=== PATIENT | male | born 1980 | race Caucasian/White ===

== ENCOUNTER 2016-10-29 14:03 | Emergency (ER) | payer SELFPAY ==
[~2016-10-29] VITALS: Ht 188 cm; Wt 95.7 kg
[~2016-10-29 14:03] MED LIST: GABA800T PO; GLUCTES27 SQ; LEVEMIR SQ; NOVOLOGP2 SQ
[2016-10-29 14:12] VITALS: BP 152/98; PULSE 102; RESP 16; TEMP 98.7; O2SAT 98
[2016-10-29] MEDS ORDERED: LANTUS2P SQ (14:42)
[2016-10-29] MEDS ORDERED: VENTAER INH (15:16)
[2016-10-29] MEDS ORDERED: ZITHTAB PO (15:16)
[2016-10-29] MEDS ORDERED: LORA-361 PO (15:16)
[2016-10-29] MEDS ORDERED: PRED20 PO (15:16)
--- NOTE | 2016-10-29 15:18 | PD ---
HPI Chief Complaint: Cold / Flu Symptoms Time Seen by Provider: 15:16 Travel History International Travel<30 days: No Contact w/Intl Traveler<30days: No Traveled to known affect area: No History of Present Illness HPI 36-year-old male with a history of diabetes type 1 presents to the emergency department for evaluation of cough and sinus congestion. The patient states that for the past 3 months he has had intermittent nasal congestion and right ear feeling called and muffled with popping. States that he started using Flonase 3 days ago for these symptoms but has not had any relief yet. States that he has had a productive cough with yellow sputum for the past month. States that the cough is worsened at night and causes him to have mild shortness of breath at night. He denies any chest pain, lightheadedness, dizziness, nausea, vomiting, fever, chills, weakness. States that he is in drug court right now and cannot take most [id number] medications so he was unsure what he should take for his symptoms. He does admit to smoking cigarettes 1 pack per day for the past 15 years. No other complaints. PFSH Past Medical History ADHD: Yes Arthritis: No Asthma: No Blood Disorders: No Anxiety: Yes Depression: Yes Heart Rhythm Problems: No Cancer: No Cardiovascular Problems: No Chemotherapy: No Chest Pain: No Congestive Heart Failure: No COPD: No Diabetes: Yes (Type 1) Patient Takes Glucophage: No Diminished Hearing: No Endocrine: Yes Gastrointestinal Disorders: Yes Genitourinary: No Headaches: No Hepatitis: Yes (C) Hiatal Hernia: No Hypertension: No Immune Disorder: No Implanted Vascular Access Dvce: No Musculoskeletal: No Neurologic: Yes (NEUROPATHY LEGS/ FEET) Psychiatric: Yes (anxiety and depression) Reproductive: No Respiratory: No Immunizations Current: No Radiation Therapy: No Seizures: No Sleep Apnea: No Thyroid Disease: No Tetanus Vaccination: Unknown Influenza Vaccination: Yes Past Surgical History Abdominal Surgery: No AICD: No Cardiac Surgery: No Ear Surgery: No Endocrine Surgery: No Eye Surgery: No Genitourinary Surgery: No Gynecologic Surgery: No Joint Replacement: No Oral Surgery: No Pacemaker: No Thoracic Surgery: No Other Surgery: Yes Social History Alcohol Use: No Tobacco Use: Yes (1 PPD) Substance Use: No (HX IVDA/denies today) Allergies-Medications (Allergen,Severity, Reaction): Coded Allergies: Acetaminophen (Verified Adverse Reaction, Mild, NAUSEA, 10/29/16) 05/30/16 DENIES ALLERGY Uncoded Allergies: NARCOTICS (Adverse Reaction, Unknown, 10/29/16) hx of opoid abuse, IVDU, avoid.. Reported Meds & Prescriptions Reported Meds & Active Scripts Active Claritin (Loratadine) 10 Mg Tab 10 Mg PO DAILY 30 Days Ventolin Hfa 18 GM Inh (Albuterol Sulfate) 90 Mcg/Act Aer 2 Puff INH Q4H PRN Zithromax Z-Elliot (Azithromycin) 250 Mg Dspk 250 Mg PO DIRECTED 500 MG (2 tabs) day 1, then 1 tab days 2-5. Prednisone 20 Mg Tab 20 Mg PO BID 4 Days Novolog Inj (Insulin Aspart) 1,000 Unit/10 Ml Vial 0 SQ DIRECTED Sliding Scale as directed. Gabapentin 800 Mg Tab 800 Mg PO TID Reported Lantus Inj (Insulin Glargine) 1,000 Unit/10 Ml Vial 40 Units SQ HS Review of Systems Except as stated in HPI: all other systems reviewed are Neg Physical Exam Narrative GENERAL: Well-nourished and well-developed pleasant male patient in no acute distress who is nontoxic appearing. SKIN: Warm and dry. HEAD: Normocephalic and atraumatic. No tenderness or crepitus noted throughout the sinuses. EYES: No injection, drainage, or hyphema noted. PERRLA. EOMI. ENT: No nasal drainage noted. Oropharynx is clear. Right tympanic membrane with serous effusion, no erythema or dullness. Left tympanic membrane within normal limits. NECK: Supple and the trachea is midline. CARDIOVASCULAR: Regular rate and rhythm. RESPIRATORY: Coarse breath sounds. No accessory muscle use, wheezing, rhonchi, or crackles. GASTROINTESTINAL: Abdomen is soft, non-tender, and nondistended. MUSCULOSKELETAL: No obvious deformities, swelling, cyanosis, or ecchymosis is present throughout the upper and lower extremities. Patient has full range of motion without any signs of neurovascular compromise. NEUROLOGICAL: Awake, alert, and oriented. Normal speech and gait. Cranial nerves are grossly intact. Data Data Last Documented VS Vital Signs Date Time Temp Pulse Resp B/P Pulse Ox O2 Delivery O2 Flow Rate FiO2 10/29/16 14:40 16 98 Room Air 10/29/16 14:12 98.7 102 152/98 [facility] Medical Decision Making Medical Screen Exam Complete: Yes Emergency Medical Condition: Yes Differential Diagnosis Bronchitis versus pneumonia versus sinusitis versus otitis media Narrative Course 36-year-old male presents to the emergency department for evaluation of productive cough and right ear congestion. Patient is afebrile, vital signs are stable. On examination he does have serous effusion behind the right tympanic membrane and coarse lung breath sounds but clear. The patient appears well overall. Due to the duration of his cough and his smoking history will start the patient on a Z-Elliot and short course of prednisone. Discussed extensively with the patient to monitor his blood sugars carefully while taking steroids. Discussed when to return to the emergency department and to follow- up with his PCP. Patient verbalizes understanding and agreement with treatment plan. Diagnosis Primary Impression: Acute bronchitis Qualified Code: J20.9 - Acute bronchitis, unspecified organism Additional Impression: Serous otitis media Qualified Code: H65.91 - Right serous otitis media, unspecified chronicity Referrals: Primary Care Physician Patient Instructions: Acute Bronchitis (ED), General Instructions, Otitis Media (ED) Additional Instructions: Take medications as prescribed with food and a full glass of water. Check blood sugar more often because prednisone will cause your sugars to go up. Follow-up with your Primary Care Physician. Return to the ED for any acute worsening of symptoms. Med/Other Pt SpecificInfo: Prescription(s) given Scripts Loratadine (Claritin)10 Mg Tab10 Mg PO DAILY 30 Days Ref 0 Prov:Lisa Zazueta MD 10/29/16 Albuterol 18 GM Inh (Ventolin Hfa 18 GM Inh)90 Mcg/Act Aer2 Puff INH Q4H PRN ( SHORTNESS OF BREATH) #1 INHALER Ref 0 Prov:Lisa Zazueta MD 10/29/16 Azithromycin (Zithromax Z-Elliot)250 Mg Trit114 Mg PO DIRECTED #1 DSPK Ref 0 500 MG (2 tabs) day 1, then 1 tab days 2-5. Prov:Lisa Zazueta MD 10/29/16 Prednisone 20 Mg Tab20 Mg PO BID 4 Days Ref 0 Prov:Lisa Zazueta MD 10/29/16 Disposition: 01 DISCHARGE HOME Condition: Stable Shanika Squires Oct 29, 2016 15:18
[2016-11-09] MEDS ORDERED: GABA800T PO (17:04)
[2016-12-31] MEDS ORDERED: NOVORP2 SQ (15:00)
[2017-01-22] MEDS ORDERED: BLOOD GLUCOSE T1 TES (10:26)
[2017-01-22] MEDS ORDERED: FLUO20CA4 PO (10:26)
[2017-01-22] MEDS ORDERED: INSU-169 (10:28)
[2017-01-30] MEDS ORDERED: FLUO20CA4 PO (09:49)
== END 2016-10-29 15:25 | disposition home or self-care (01) ==
LOC: PHEFT 14:03
DX: J20.9 Acute bronchitis, unspecified (principal); H65.91 Unspecified nonsuppurative otitis media, right ear; R09.81 Nasal congestion; R06.02 Shortness of breath; E10.9 Type 1 diabetes mellitus without complications; F17.210 Nicotine dependence, cigarettes, uncomplicated
CPT/HCPCS: 99283

== ENCOUNTER 2016-12-17 13:32 | Inpatient (IN) | payer SELFPAY ==
[~2016-12-17] VITALS: Ht 180.3 cm; Wt 92.6 kg
[~2016-12-17 13:32] MED LIST changes: -GLUCTES27 SQ; +LANTUS2P SQ; -LEVEMIR SQ
[2016-12-17 13:34] VITALS: BP 147/81; PULSE 115; RESP 20; TEMP 98; O2SAT 96
[2016-12-17] MEDS ORDERED: VORT1TAB3 PO (14:33)
--- NOTE | 2016-12-17 15:07 | PD ---
HPI Chief Complaint: Psychiatric Symptoms Time Seen by Provider: 15:02 Travel History International Travel<30 days: No Contact w/Intl Traveler<30days: No Traveled to known affect area: No History of Present Illness HPI Patient is a 36-year-old male presented to the evaluation of depression and suicidal ideations. Patient states that his depression is getting worse despite having his medication increased last week. Patient also reports a history of anxiety, he is currently feeling very anxious. Patient has a history of drug abuse, he's been clean for 6 months. He was previously addicted to opiates but reports taking "everything". Patient reports that he attempted to cut his wrists when he was younger but felt that was more of a cry for help than an actual suicide attempt. Patient does not have an actual plan but reports thinking he could overdose or go in front of a train in order to kill himself. He denies any homicidal ideations. PFSH Past Medical History ADHD: Yes Arthritis: No Asthma: No Blood Disorders: No Anxiety: Yes Depression: Yes Heart Rhythm Problems: No Cancer: No Cardiovascular Problems: No Chemotherapy: No Chest Pain: No Congestive Heart Failure: No COPD: No Diabetes: Yes Diminished Hearing: No Endocrine: Yes Gastrointestinal Disorders: Yes Genitourinary: No Headaches: No Hepatitis: Yes (C) Hiatal Hernia: No Hypertension: No Immune Disorder: No Implanted Vascular Access Dvce: No Musculoskeletal: No Reproductive: No Respiratory: No Immunizations Current: No Radiation Therapy: No Seizures: No Sleep Apnea: No Thyroid Disease: No Past Surgical History Abdominal Surgery: No AICD: No Cardiac Surgery: No Ear Surgery: No Endocrine Surgery: No Eye Surgery: No Genitourinary Surgery: No Gynecologic Surgery: No Joint Replacement: No Oral Surgery: No Pacemaker: No Thoracic Surgery: No Other Surgery: Yes Social History Alcohol Use: No Tobacco Use: Yes Substance Use: No Allergies-Medications (Allergen,Severity, Reaction): Coded Allergies: Acetaminophen (Verified Adverse Reaction, Mild, NAUSEA, 12/17/16) 05/30/16 DENIES ALLERGY Uncoded Allergies: NARCOTICS (Adverse Reaction, Unknown, 10/29/16) hx of opoid abuse, IVDU, avoid.. Reported Meds & Prescriptions Reported Meds & Active Scripts Active Gabapentin 800 Mg Tab 800 Mg PO QID Novolog Inj (Insulin Aspart) 1,000 Unit/10 Ml Vial 0 SQ DIRECTED Sliding Scale as directed. Reported Trintellix (Vortioxetine) 20 Mg Tab 20 Mg PO DAILY Lantus Inj (Insulin Glargine) 1,000 Unit/10 Ml Vial 40 Units SQ HS Review of Systems Except as stated in HPI: all other systems reviewed are Neg Gastrointestinal: Positive: Abdominal Pain (cramping secondary to anxiety) Psychiatric: Positive: Anxiety, Depression, Suicidal Ideations Physical Exam Narrative GENERAL: Well-developed, well-nourished, alert male. Appears anxious , in no acute distress SKIN: Warm and dry. HEAD: Atraumatic. Normocephalic. EYES: Pupils equal and round. No scleral icterus. No injection or drainage. ENT: No nasal bleeding or discharge. Mucous membranes pink and moist. NECK: Trachea midline. No JVD. CARDIOVASCULAR: Tachycardic. No murmur appreciated. RESPIRATORY: No accessory muscle use. Clear to auscultation. Breath sounds equal bilaterally. GASTROINTESTINAL: Abdomen soft, non-tender, nondistended. Hepatic and splenic margins not palpable. MUSCULOSKELETAL: No obvious deformities. No clubbing. No cyanosis. No edema. NEUROLOGICAL: Awake and alert. No obvious cranial nerve deficits. Motor grossly within normal limits. Normal speech. PSYCHIATRIC: Depressed mood and affect; insight and judgment normal. Data Data Last Documented VS Vital Signs Date Time Temp Pulse Resp B/P Pulse Ox O2 Delivery O2 Flow Rate FiO2 12/17/16 13:34 98.0 115 20 147/81 96 Room Air Orders Complete Blood Count With Diff (12/17/16 14:54) Comprehensive Metabolic Panel (12/17/16 14:54) Psych Screen (12/17/16 14:54) Drug Screen, Random Urine (12/17/16 14:54) Electrocardiogram (12/17/16 ) Labs Laboratory Tests Test 12/17/16 15:20 White Blood Count 8.8 TH/MM3 Red Blood Count 5.47 MIL/MM3 Hemoglobin 16.4 GM/DL Hematocrit 47.1 % Mean Corpuscular Volume 86.1 FL Mean Corpuscular Hemoglobin 29.9 PG Mean Corpuscular Hemoglobin 34.7 % Concent Red Cell Distribution Width 13.0 % Platelet Count 247 TH/MM3 Mean Platelet Volume 8.4 FL Neutrophils (%) (Auto) 62.6 % Lymphocytes (%) (Auto) 25.3 % Monocytes (%) (Auto) 7.7 % Eosinophils (%) (Auto) 3.3 % Basophils (%) (Auto) 1.1 % Neutrophils # (Auto) 5.5 TH/MM3 Lymphocytes # (Auto) 2.2 TH/MM3 Monocytes # (Auto) 0.7 TH/MM3 Eosinophils # (Auto) 0.3 TH/MM3 Basophils # (Auto) 0.1 TH/MM3 CBC Comment DIFF FINAL Differential Comment Sodium Level 138 MEQ/L Potassium Level 4.5 MEQ/L Chloride Level 103 MEQ/L Carbon Dioxide Level 26.7 MEQ/L Anion Gap 8 MEQ/L Blood Urea Nitrogen 13 MG/DL Creatinine 1.01 MG/DL Estimat Glomerular Filtration 85 ML/MIN Rate Random Glucose 149 MG/DL Calcium Level 9.2 MG/DL Total Bilirubin 0.4 MG/DL Aspartate Amino Transf 11 U/L (AST/SGOT) Alanine Aminotransferase 29 U/L (ALT/SGPT) Alkaline Phosphatase 152 U/L Total Protein 8.0 GM/DL Albumin 4.2 GM/DL Urine Opiates Screen NEG Urine Barbiturates Screen NEG Urine Amphetamines Screen NEG Urine Benzodiazepines Screen NEG Urine Cocaine Screen NEG Urine Cannabinoids Screen NEG MDM Medical Decision Making Medical Screen Exam Complete: Yes Emergency Medical Condition: Yes Interpretation(s) Vital Signs Date Time Temp Pulse Resp B/P Pulse Ox O2 Delivery O2 Flow Rate FiO2 12/17/16 13:34 98.0 115 20 147/81 96 Room Air Differential Diagnosis Mood disorder versus suicidal ideations versus substance abuse versus electrolyte abnormality versus cardiac arrhythmia versus other Narrative Course Patient is a 36-year-old male presenting to emergency department for evaluation of suicidal ideations and worsening depression. Patient currently denies any homicidal ideations but reports that his thoughts of suicide gotten worse although he has no specific plan. Labs and EKG are ordered and pending. Workup initiated in the triage area, patient will be transferred to a medical bed when available. Johana Garcia Dec 17, 2016 15:07
[2016-12-17 15:43] LABS: AUTOMATED NEUTROPHIL # 5.5 TH/MM3 (1.8-7.7); BASOPHIL # 0.1 TH/MM3 (0-0.2); BASOPHIL % 1.1 % (0.0-2.0); EOSINOPHIL # 0.3 TH/MM3 (0-0.4); EOSINOPHIL % 3.3 % (0.0-4.0); HEMATOCRIT 47.1 % (39.0-51.0); HEMO FLAGS DIFF FINAL; LYMPH % 25.3 % (9.0-44.0); LYMPHOCYTE # 2.2 TH/MM3 (1.0-4.8); MEAN CELL VOLUME 86.1 FL (80.0-100.0); MEAN CORPUSCULAR HEMOGLOBIN 29.9 PG (27.0-34.0); MEAN CORPUSCULAR HGB CONC 34.7 % (32.0-36.0); MONO % 7.7 % (0.0-8.0); NEUT % 62.6 % (16.0-70.0); PLATELET COUNT 247 TH/MM3 (150-450); RED BLOOD COUNT 5.47 MIL/MM3 (4.50-5.90); WHITE BLOOD COUNT 8.8 TH/MM3 (4.0-11.0)
[2016-12-17 15:45] LABS: AMPHETAMINE, URINE NEG (NEG); BARBITURATES, URINE NEG (NEG); COCAINE, URINE NEG (NEG)
[2016-12-17 16:01] LABS: ALT (GPT) 29 U/L (12-78); ANION GAP 8 MEQ/L (5-15); AST (GOT) 11 U/L (15-37); BICARBONATE 26.7 MEQ/L (21.0-32.0); BLOOD UREA NITROGEN 13 MG/DL (7-18); CHLORIDE 103 MEQ/L (98-107); GLOMERULAR FILTRATION RATE 85 ML/MIN (>89); POTASSIUM 4.5 MEQ/L (3.5-5.1); SODIUM (NA) 138 MEQ/L (136-145)
[2016-12-17 16:02] LABS: ALKALINE PHOSPHATASE 152 U/L (45-117); TOTAL BILIRUBIN ADULT 0.4 MG/DL (0.2-1.0)
--- NOTE | 2016-12-17 16:12 | PD ---
Physical Exam Date Seen by Provider: Dec 17, 2016 Data Data Last Documented VS Vital Signs Date Time Temp Pulse Resp B/P Pulse Ox O2 Delivery O2 Flow Rate FiO2 12/18/16 15:03 97 18 113/61 95 Room Air 12/18/16 11:00 98.6 Orders Complete Blood Count With Diff (12/17/16 14:54) Comprehensive Metabolic Panel (12/17/16 14:54) Psych Screen (12/17/16 14:54) Drug Screen, Random Urine (12/17/16 14:54) Electrocardiogram (12/17/16 ) Insulin Human Regular Inj (Novolin R Inj (12/17/16 18:45) Hydroxyzine Pamoate (Vistaril) (12/17/16 19:15) Insulin Detemir Inj (Levemir Inj) (12/17/16 21:00) Diet Diabetic (12/18/16 Breakfast) Diet Diabetic (12/18/16 Lunch) Admit Order (Ed Use Only) (12/18/16 15:27) Admit To Inpatient Psych (12/18/16 ) Vital Signs (Adult) OTONIEL.Q12H.E (12/18/16 15:31) Activity Oob Ad Ana Maria (12/18/16 15:31) Basic Metabolic Panel (Bmp) (12/19/16 06:00) Lipid Profile (12/19/16 06:00) Hemoglobin (Hgb) A1c (12/19/16 06:00) Consult Hospitalist (12/18/16 ) Labs Laboratory Tests Test 12/17/16 15:20 White Blood Count 8.8 TH/MM3 Red Blood Count 5.47 MIL/MM3 Hemoglobin 16.4 GM/DL Hematocrit 47.1 % Mean Corpuscular Volume 86.1 FL Mean Corpuscular Hemoglobin 29.9 PG Mean Corpuscular Hemoglobin 34.7 % Concent Red Cell Distribution Width 13.0 % Platelet Count 247 TH/MM3 Mean Platelet Volume 8.4 FL Neutrophils (%) (Auto) 62.6 % Lymphocytes (%) (Auto) 25.3 % Monocytes (%) (Auto) 7.7 % Eosinophils (%) (Auto) 3.3 % Basophils (%) (Auto) 1.1 % Neutrophils # (Auto) 5.5 TH/MM3 Lymphocytes # (Auto) 2.2 TH/MM3 Monocytes # (Auto) 0.7 TH/MM3 Eosinophils # (Auto) 0.3 TH/MM3 Basophils # (Auto) 0.1 TH/MM3 CBC Comment DIFF FINAL Differential Comment Sodium Level 138 MEQ/L Potassium Level 4.5 MEQ/L Chloride Level 103 MEQ/L Carbon Dioxide Level 26.7 MEQ/L Anion Gap 8 MEQ/L Blood Urea Nitrogen 13 MG/DL Creatinine 1.01 MG/DL Estimat Glomerular Filtration 85 ML/MIN Rate Random Glucose 149 MG/DL Calcium Level 9.2 MG/DL Total Bilirubin 0.4 MG/DL Aspartate Amino Transf 11 U/L (AST/SGOT) Alanine Aminotransferase 29 U/L (ALT/SGPT) Alkaline Phosphatase 152 U/L Total Protein 8.0 GM/DL Albumin 4.2 GM/DL Urine Opiates Screen NEG Urine Barbiturates Screen NEG Urine Amphetamines Screen NEG Urine Benzodiazepines Screen NEG Urine Cocaine Screen NEG Urine Cannabinoids Screen NEG MDM Medical Record Reviewed: Yes Supervised Visit with MIRIAN: Yes Narrative Course I, Dr. Flores, have reviewed the advance practice practitioner's documentation and am in agreement, met with the patient face to face, made the diagnosis, and the medical decision making was done by me. *My assessment and Findings: Suicidal idealizations Patient is a 36-year-old male who presents to emergency room for evaluation of depression and suicidal ideations. Patient reports that he has been having suicidal thoughts of possibly overdosing or jumping in front of a train for the past week, reports that he is here for some help. Patient does contract for safety here. Psychiatric screening labs were ordered and are negative, patient cleared for psychiatric evaluation Diagnosis Primary Impression: Depression Qualified Code: F32.9 - Depression, unspecified depression type Additional Impression: Suicidal ideation Patient Instructions: General Instructions Additional Instruction: Please follow-up with your primary care doctor as soon as possible Return to emergency room if symptoms progress or worsen Return to the emergency room at any time for reevaluation of your symptoms Madisyn Flores DO Dec 17, 2016 16:12
[2016-12-17 18:42] VITALS: BP 139/86; PULSE 99; RESP 18; O2SAT 98
[2016-12-17] MEDS ORDERED: INSULIN HUMAN REGULAR 1,000 UNITS/10 ML VIAL SQ STA (18:45)
[2016-12-17] MEDS ORDERED: INSULIN DETEMIR 100 UNITS/ML VIAL SQ SCH (21:00)
[2016-12-17 22:02] VITALS: BP 137/84; PULSE 92; RESP 17; O2SAT 99
[2016-12-18 02:00] VITALS: BP 110/59; PULSE 86; RESP 19; O2SAT 98
[2016-12-18 06:11] VITALS: BP 106/56; PULSE 83; RESP 18; O2SAT 98
[2016-12-18 10:33] VITALS: BP 110/73; PULSE 97; RESP 18; O2SAT 98
[2016-12-18 11:00] VITALS: BP 101/66; PULSE 55; RESP 18; TEMP 98.6; O2SAT 97
[2016-12-18 15:03] VITALS: BP 113/61; PULSE 97; RESP 18; O2SAT 95
--- NOTE | 2016-12-18 15:36 | EKG ---
Date Performed: 12/17/2016 Time Performed: 15:18:14 PTAGE: 36 years EKG: Sinus rhythm POSSIBLE LEFT ATRIAL ENLARGEMENT BORDERLINE ECG PREVIOUS TRACING : 09/24/2016 18.18 No significant change from previous tracing noted. DOCTOR: Jameel Bass Interpretating Date/Time 12/18/2016 15:34:58
[2016-12-18] MEDS: GABAPENTIN 400 MG CAP PO SCH ×2 (17:23→21:18)
--- NOTE | 2016-12-18 17:39 | PD.CONS ---
HPI Service Family Medicine Consult Requested By Psychiatry Reason for Consult Diabetic management Primary Care Physician Chris Zhang MD History of Present Illness Patient is a 36-year-old male currently being treated in the inpatient psychiatry department for suicidal ideation secondary to severe depression. Patient's home insulin regimen is 35 units of Lantus daily at bedtime and sliding scale insulin with NovoLog. His fasting blood glucose is usually in the [id number] range. His PCP is Dr. Zhang. 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 Review of Systems Other Denies fever or chills Denies blurry vision, otorrhea, rhinorrhea Denies sore throat and cough No chest pain, palpitations, shortness of breath No abdominal pain Denies constipation/diarrhea/nausea/vomiting Denies muscle pain/weakness No rashes Past Family Social History Past Medical History Type 1 diabetes mellitus Diabetic neuropathy History of substance abuse Depression Past Surgical History Left hip I&D secondary to osteomyelitis Left eye drainage Reported Medications Reported Meds & Active Scripts Active Gabapentin 800 Mg Tab 800 Mg PO QID Novolog Inj (Insulin Aspart) 1,000 Unit/10 Ml Vial 0 SQ DIRECTED Sliding Scale as directed. Reported Trintellix (Vortioxetine) 20 Mg Tab 20 Mg PO DAILY Lantus Inj (Insulin Glargine) 1,000 Unit/10 Ml Vial 35 Units SQ HS Allergies: Coded Allergies: Acetaminophen (Verified Adverse Reaction, Mild, NAUSEA, 12/17/16) 05/30/16 DENIES ALLERGY Uncoded Allergies: NARCOTICS (Adverse Reaction, Unknown, 10/29/16) hx of opoid abuse, IVDU, avoid.. Family History Noncontributory Social History Lives in [facility]. Currently clean and sober. Physical Exam Vital Signs Vital Signs Date Time Temp Pulse Resp B/P Pulse Ox O2 Delivery O2 Flow Rate FiO2 12/18/16 15:03 97 18 113/61 95 Room Air 12/18/16 11:00 98.6 55 18 101/66 97 Room Air 12/18/16 10:33 97 18 110/73 98 Room Air 12/18/16 06:11 83 18 106/56 98 Room Air 12/18/16 02:00 86 19 110/59 98 Room Air 12/17/16 22:02 92 17 137/84 99 Room Air 12/17/16 18:42 99 18 139/86 98 Room Air Physical Exam Gen.: No acute distress Head: Normocephalic. Atraumatic. EENT: Pupils equal round and reactive to light. Nose without drainage. Airway intact. Throat without injection. Cardiovascular: Regular rate and rhythm. No murmurs, rubs or gallops. Respiratory: Lungs clear to auscultation bilaterally. No wheezes or rhonchi. Abdomen: Soft, nontender, nondistended. No peritoneal signs. Musculoskeletal: No gross deformities. No edema. Skin: No obvious rashes or erythema. Neuro: Sensory and motor grossly intact. Cranial nerves II through XII grossly intact. Psych: Appropriate mood and affect Result Diagram: 12/17/16 1520 12/17/16 1520 Assessment and Plan Assessment and Plan 36-year-old male being treated for severe depression with suicidal ideation with a history of type 1 diabetes mellitus. 1. Diabetes mellitus Patient on 35 units of Lantus daily at bedtime with sliding scale NovoLog at home Levemir 20 units twice a day NovoLog sliding scale insulin A1c pending Follow blood glucose Adjust insulin when necessary 2. Depression Managed by psychiatry FEN: No indication for fluids at this time Diabetic diet No indication for pharmacologic prophylaxis at this time Code Status Full code Madisyn Gonzalez MD R3 Dec 18, 2016 17:39
[2016-12-18] MEDS ORDERED: GLUCAGON 1 MG/ML VIAL OTHER PRN (18:00)
[2016-12-18] MEDS ORDERED: DEXTROSE 50% IN WATER 50 ML VIAL(D50) IV PUSH PRN (18:00)
[2016-12-18] MEDS: INSULIN DETEMIR 100 UNITS/ML VIAL SQ SCH (19:05)
[2016-12-18 19:08] VITALS: BP 123/79; PULSE 90; RESP 18; TEMP 98; O2SAT 98
[2016-12-18] MEDS: INSULIN ASPART SUPPLEMENTAL SCALE SQ SCH (19:08)
[2016-12-18] MEDS ORDERED: INSULIN DETEMIR 100 UNITS/ML VIAL SQ SCH (21:00)
[2016-12-19] MEDS: INSULIN ASPART SUPPLEMENTAL SCALE SQ SCH ×4 (06:16→21:17)
[2016-12-19 06:32] VITALS: BP 102/58; PULSE 93; RESP 18; TEMP 97.7; O2SAT 96
[2016-12-19] MEDS: GABAPENTIN 400 MG CAP PO SCH ×4 (08:15→21:17)
[2016-12-19] MEDS: INSULIN DETEMIR 100 UNITS/ML VIAL SQ SCH ×2 (08:15→21:17)
[2016-12-19 08:18] LABS: ANION GAP 7 MEQ/L (5-15); BICARBONATE 26.6 MEQ/L (21.0-32.0); BLOOD UREA NITROGEN 20 MG/DL (7-18); CHLORIDE 101 MEQ/L (98-107); GLOMERULAR FILTRATION RATE 72 ML/MIN (>89); HDL CHOLESTEROL 33.9 MG/DL (40.0-60.0); LDL CHOLESTEROL 79 MG/DL (0-99); POTASSIUM 4.5 MEQ/L (3.5-5.1); SODIUM (NA) 135 MEQ/L (136-145)
[2016-12-19] MEDS: NICOTINE 21 MG/24 HR PATCH TD SCH (09:00)
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
[2016-12-19] MEDS: FLUoxetine HCL 20 MG CAP PO SCH (11:22)
[2016-12-19] MEDS: INSULIN ASPART 1,000 UNITS/10 ML VIAL SQ SCH ×2 (12:30→16:15)
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
[2016-12-19 15:59] LABS: HEMOGLOBIN Ao 81.5 %; HEMOGLOBIN F 1.3 %; HEMOGLOBIN LA1C 3.2 %; HEMOGLOBIN P3 4.6 %
[2016-12-19] MEDS: hydrOXYzine PAMOATE 25 MG CAP PO PRN (17:18)
[2016-12-19 18:40] VITALS: BP 133/64; PULSE 100; RESP 18; TEMP 98.1; O2SAT 98
[2016-12-19] MEDS: REMOVE OLD NICODERM (NICOTINE) PATCH TD SCH (21:00)
[2016-12-20 05:52] VITALS: BP 120/75; PULSE 78; RESP 18; TEMP 97.6; O2SAT 96
[2016-12-20] MEDS: INSULIN ASPART SUPPLEMENTAL SCALE SQ SCH ×4 (06:26→21:10)
[2016-12-20] MEDS: INSULIN ASPART 1,000 UNITS/10 ML VIAL SQ SCH ×3 (08:00→16:20)
[2016-12-20] MEDS: GABAPENTIN 400 MG CAP PO SCH ×4 (09:02→20:19)
[2016-12-20] MEDS: FLUoxetine HCL 20 MG CAP PO SCH (09:03)
[2016-12-20] MEDS: INSULIN DETEMIR 100 UNITS/ML VIAL SQ SCH ×2 (09:03→21:00)
[2016-12-20] MEDS: NICOTINE 21 MG/24 HR PATCH TD SCH (09:05)
--- NOTE | 2016-12-20 09:05 | HHI.PYPN ---
Subjective Remarks Patient was seen and discussed with the wait staff. Patient claimed that he slept fairly well. No side effects were complained from the medication. He denies any suicidal ideation intentions or plan and has been feeling little better. He was encouraged to participate in all the therapeutic activity on the floor. No behavior or management problem reported. Is compliant in taking medication. Continue with the same treatment Review of Systems Except as stated in HPI: all other systems reviewed are Neg Psychiatric: COMPLAINS OF: Mood changes, Depression Objective Alert: Yes [place]: Person, Place, Situation Mood: Depressed Affect: Restricted Memory Intact: Recent (mildly impaired) Hallucinations: Other (patient denies any active auditory or visual hallucinations) Delusions: No Delusion Type: Other Suicidal: Ideation (patient denies any suicidal ideation intentions or plan and feels safe in the hospital) Homicidal: Ideation (denies) Insight/Judgement Fair Vitals/IOs Vital Signs Date Time Temp Pulse Resp B/P Pulse Ox O2 Delivery O2 Flow Rate FiO2 12/20/16 05:52 97.6 78 18 120/75 96 12/18/16 15:03 Room Air Assessment & Plan Problem List: (1) Depression ICD Code: F32.9 Assessment & Plan Estimated LOS: days Justification for Cont. Inpt. Monitoring other medication to lifted depression Request HC Surrog/Guard Advoc?: No Problem Qualifiers (1) Depression: Qualified Code: F32.9 - Depression, unspecified depression type Jaycob Hernandez MD Dec 20, 2016 09:05
--- NOTE | 2016-12-20 12:13 | HHI.FPPN ---
Subjective Remarks Patient seen and examined this morning. No acute events overnight. Patient states that his blood sugar remained elevated overnight, but decreased with each check overnight and this morning. He states he would like to increase his insulin to 6 units before each meal for better control. He has no other complaints and denies any fevers, chills, SOB, chest pain, NVD, or calf tenderness. (Bhavik Blanco MD R1) Objective Vitals Vital Signs Date Time Temp Pulse Resp B/P Pulse Ox O2 Delivery O2 Flow Rate FiO2 12/20/16 05:52 97.6 78 18 120/75 96 12/19/16 18:40 98.1 100 18 133/64 98 (Bhavik Blanco MD R1) Result Diagram: 12/17/16 1520 12/19/16 0657 Objective Remarks Gen.: 36 y/o M sitting in family room in [facility]. Cardiovascular: Regular rate and rhythm. No murmurs, rubs or gallops. Respiratory: Lungs clear to auscultation bilaterally. No wheezes or rhonchi. Abdomen: Soft, nontender, nondistended with +BS. Musculoskeletal: No gross deformities. No edema. Skin: No obvious rashes or erythema. Neuro: Sensory and motor grossly intact. AAOx3. Psych: Appropriate mood and affect (Bhavik Blanco MD R1) A/P Assessment and Plan 36-year-old male being treated for severe depression with suicidal ideation with a history of type 1 diabetes mellitus. 1. Diabetes mellitus Patient on 35 units of Lantus daily at bedtime with sliding scale NovoLog at home with carb counting Levemir 20 units twice a day Increase NovoLog to 6 units prior to each meal NovoLog sliding scale insulin A1c 7.1 Follow blood glucose. BG 85-265 over last 24hr. 2. Depression Managed by psychiatry FEN: No indication for fluids at this time Diabetic diet No indication for pharmacologic prophylaxis at this time Discharge Planning Pending Psych recommendations. WDW: Dr. Daniels (Bhavik Blanco MD R1) Attending Attestation Patient seen and examined. Case reviewed and discussed with the resident team. Agree with plan of care as discussed with me and documented in the resident note. (Elba Daniels MD) Bhavik Blanco MD R1 Dec 20, 2016 12:13 Elba Daniels MD Dec 24, 2016 14:00
[2016-12-20] MEDS: hydrOXYzine PAMOATE 25 MG CAP PO PRN ×2 (17:43→23:23)
[2016-12-20 20:07] VITALS: BP 127/80; PULSE 78; RESP 16; TEMP 97.3; O2SAT 96
[2016-12-20] MEDS: REMOVE OLD NICODERM (NICOTINE) PATCH TD SCH (20:52)
[2016-12-21 05:39] VITALS: BP 113/65; PULSE 84; RESP 18; TEMP 97.4; O2SAT 97
[2016-12-21] MEDS: INSULIN ASPART SUPPLEMENTAL SCALE SQ SCH ×4 (07:00→20:30)
[2016-12-21] MEDS: NICOTINE 21 MG/24 HR PATCH TD SCH (09:00)
[2016-12-21] MEDS: INSULIN DETEMIR 100 UNITS/ML VIAL SQ SCH ×2 (09:15→20:29)
[2016-12-21] MEDS: GABAPENTIN 400 MG CAP PO SCH ×4 (09:16→20:26)
[2016-12-21] MEDS: FLUoxetine HCL 20 MG CAP PO SCH (09:16)
--- NOTE | 2016-12-21 09:42 | HHI.FPPN ---
Subjective Remarks No acute events overnight. This morning patient reports hypoglycemia that was associated with blurry vision. Continues to have elevated blood glucose during the day. (Blessing Gamez MD R2) Objective Vitals Vital Signs Date Time Temp Pulse Resp B/P Pulse Ox O2 Delivery O2 Flow Rate FiO2 12/21/16 05:39 97.4 84 18 113/65 97 12/20/16 20:07 97.3 78 16 127/80 96 (Blessing Gamez MD R2) Result Diagram: 12/17/16 1520 12/19/16 0657 Objective Remarks GENERAL: Well-nourished, well-developed patient. No acute distress. SKIN: Warm and dry. No rash. EYES: No scleral icterus. No injection or drainage. EOMI. NECK: No visible JVD or lymphadenopathy. CARDIOVASCULAR: Warm and well perfused. RESPIRATORY: Normal respiratory effort. GASTROINTESTINAL: Abdomen nondistended. MUSCULOSKELETAL: Strength grossly WNL. Normal gait NEURO/PSYCH: Afocal. Awake. Flat affect. (Blessing Gamez MD R2) A/P Assessment and Plan 36-year-old male being treated for severe depression with suicidal ideation with a history of type 1 diabetes mellitus. 1. Diabetes mellitus Patient on 35 units of Lantus daily at bedtime with sliding scale NovoLog at home with carb counting Levemir to 20 units in the morning and 18 units at night due to hypoglycemia in the morning. NovoLog 4 units before breakfast, 6 units prior to lunch and dinner. NovoLog sliding scale insulin A1c 7.1 Follow blood glucose. BG 60-300 over last 24hr. -Snacks at bedside for hypoglycemic episodes 2. Depression Managed by psychiatry FEN: No indication for fluids at this time Diabetic diet No indication for pharmacologic prophylaxis at this time Discharge Planning Pending Psych recommendations. SDW: Dr. Daniels (Blessing Gamez MD R2) Attending Attestation Patient seen and examined. Case reviewed and discussed with the resident team. Agree with plan of care as discussed with me and documented in the resident note. (Elba Daniels MD) Problem List: (1) Hyperglycemia due to type 1 diabetes mellitus Status: Acute (2) Depression Status: Acute (Blessing Gamez MD R2) Problem Qualifiers (1) Depression: Qualified Code: F32.9 - Depression, unspecified depression type Blessing Gamez MD R2 Dec 21, 2016 09:42 Elba Daniels MD Dec 26, 2016 14:20
[2016-12-21] MEDS: INSULIN ASPART 1,000 UNITS/10 ML VIAL SQ SCH ×3 (11:00→17:17)
--- NOTE | 2016-12-21 11:09 | HHI.PYPN ---
Subjective Remarks Patient was seen and discussed with the cruise staff member. Patient reported that he has been feeling much better. Denied any active and passive suicidal ideation intentions or plan his depression seems to be lifting no side effects were complained from the medication. No behavior or management problem reported. His thoughts were organized he is compliant and participating in all the therapeutic activity. Continue the same treatment Review of Systems Except as stated in HPI: all other systems reviewed are Neg Psychiatric: COMPLAINS OF: Mood changes, Depression Objective Alert: Yes [place]: Person, Place, Date, Situation Mood: Depressed Affect: Restricted Memory Intact: Recent (mildly impaired) Hallucinations: Other (patient denies any active auditory or visual hallucinations) Delusions: No Delusion Type: Other Suicidal: Ideation (patient denies any suicidal ideation intentions or plan and feels safe in the hospital) Homicidal: Ideation (denies) Insight/Judgement Fair Vitals/IOs Vital Signs Date Time Temp Pulse Resp B/P Pulse Ox O2 Delivery O2 Flow Rate FiO2 12/21/16 05:39 97.4 84 18 113/65 97 12/18/16 15:03 Room Air Assessment & Plan Problem List: (1) Depression ICD Code: F32.9 Assessment & Plan Estimated LOS: days Justification for Cont. Inpt. Monitoring of the medication to stabilize his mood Request HC Surrog/Guard Advoc?: No Problem Qualifiers (1) Depression: Qualified Code: F32.9 - Depression, unspecified depression type Jaycob Hernandez MD Dec 21, 2016 11:09
[2016-12-21 18:32] VITALS: BP 130/77; PULSE 80; RESP 18; TEMP 98; O2SAT 97
[2016-12-21] MEDS: REMOVE OLD NICODERM (NICOTINE) PATCH TD SCH (20:37)
[2016-12-21] MEDS: hydrOXYzine PAMOATE 25 MG CAP PO PRN (20:37)
[2016-12-22] MEDS: INSULIN ASPART SUPPLEMENTAL SCALE SQ SCH ×4 (06:00→20:45)
[2016-12-22 06:12] VITALS: BP 118/79; PULSE 89; RESP 18; TEMP 97.6; O2SAT 95
[2016-12-22] MEDS: INSULIN ASPART 1,000 UNITS/10 ML VIAL SQ SCH ×2 (08:00→10:56)
--- NOTE | 2016-12-22 08:09 | HHI.FPPN ---
Subjective Remarks Patient seen and examined this morning. No acute events overnight with vital signs stable. He states that his blood sugars been well-controlled since adjusting as before male insulin yesterday. He seems very happy with his control and states that he will likely be discharged on Saturday. Otherwise he has no complaints and denies any fevers, chills, shortness breath, chest pain, NVD, or calf tenderness. (Bhavik Blanco MD R1) Objective Vitals Vital Signs Date Time Temp Pulse Resp B/P Pulse Ox O2 Delivery O2 Flow Rate FiO2 12/22/16 06:12 97.6 89 18 118/79 95 12/21/16 18:32 98.0 80 18 130/77 97 (Bhavik Blanco MD R1) Result Diagram: 12/19/16 0657 Objective Remarks GENERAL: Well-nourished, well-developed patient. No acute distress. SKIN: Warm and dry. No rash. Multiple tattoos. CARDIOVASCULAR: Warm and well perfused. RESPIRATORY: Normal respiratory effort. GASTROINTESTINAL: Abdomen nondistended with positive bowel sounds. MUSCULOSKELETAL: Strength grossly WNL. Normal gait NEURO/PSYCH: Afocal. Awake. Flat affect. (Bhavik Blanco MD R1) A/P Assessment and Plan 36-year-old male being treated for severe depression with suicidal ideation with a history of type 1 diabetes mellitus. 1. Diabetes mellitus Patient on 35 units of Lantus daily at bedtime with sliding scale NovoLog at home with carb counting Levemir to 20 units in the morning and 18 units at night due to hypoglycemia in the morning. NovoLog 4 units before breakfast, 6 units prior to lunch and dinner. NovoLog sliding scale insulin A1c 7.1 Follow blood glucose. BG 60-300 over last 24hr. Snacks at bedside for hypoglycemic episodes 2. Depression Managed by psychiatry FEN: No indication for fluids at this time Diabetic diet No indication for pharmacologic prophylaxis at this time Discharge Planning Pending Psych recommendations. Medical team available as needed, will sign off for now. Please re-consult as needed, thanks. DW: Dr. Daniels and Dr. Spear (Bhavik Blanco MD R1) Attending Attestation Patient seen and examined. Case reviewed and discussed with the resident team. Agree with plan of care as discussed with me and documented in the resident note. (Elba Daniels MD) Problem List: (1) Hyperglycemia due to type 1 diabetes mellitus Status: Acute (2) Depression Status: Acute (Bhavik Blanco MD R1) Problem Qualifiers (1) Depression: Qualified Code: F32.9 - Depression, unspecified depression type Bhavik Blanco MD R1 Dec 22, 2016 08:09 Elba Daniels MD Dec 26, 2016 14:20
[2016-12-22] MEDS: INSULIN DETEMIR 100 UNITS/ML VIAL SQ SCH ×2 (08:40→20:45)
[2016-12-22] MEDS: FLUoxetine HCL 20 MG CAP PO SCH (08:41)
[2016-12-22] MEDS: GABAPENTIN 400 MG CAP PO SCH ×4 (08:42→20:44)
[2016-12-22] MEDS: NICOTINE 21 MG/24 HR PATCH TD SCH (08:42)
--- NOTE | 2016-12-22 12:41 | HHI.PYPN ---
Subjective Remarks Patient was seen and case discussed with nursing. Patient is pleasant and cooperative with exam. His mood is anxious and his affect is anxious. His depression is improving. Denies suicidal ideations thought or plan. His compliant with his medications. Patient attributes his admission to a change of medicine. Says he has been clean of substances for the past 6 months Objective Alert: Yes [place]: Person, Place, Date, Situation Mood: Anxious, Depressed Affect: Restricted Memory Intact: Recent (mildly impaired) Hallucinations: Other (patient denies any active auditory or visual hallucinations) Delusions: No Delusion Type: Other Suicidal: Ideation (patient denies any suicidal ideation intentions or plan and feels safe in the hospital) Homicidal: Ideation (denies) Insight/Judgement Fair Vitals/IOs Vital Signs Date Time Temp Pulse Resp B/P Pulse Ox O2 Delivery O2 Flow Rate FiO2 12/22/16 06:12 97.6 89 18 118/79 95 12/18/16 15:03 Room Air Assessment & Plan Problem List: (1) Depression ICD Code: F32.9 Assessment & Plan Continue current treatment plan Justification for Cont. Inpt. Patient will decompensate in a less restrictive setting Request HC Surrog/Guard Advoc?: No Problem Qualifiers (1) Depression: Qualified Code: F32.9 - Depression, unspecified depression type Yaniv Gillespie DO Dec 22, 2016 12:41
[2016-12-22] MEDS: hydrOXYzine PAMOATE 25 MG CAP PO PRN ×2 (13:54→20:44)
[2016-12-22] MEDS ORDERED: INSULIN ASPART 1,000 UNITS/10 ML VIAL SQ ONE (15:00)
[2016-12-22 18:00] VITALS: BP 135/85; PULSE 91; RESP 18; TEMP 97.6; O2SAT 98
[2016-12-22] MEDS: REMOVE OLD NICODERM (NICOTINE) PATCH TD SCH (21:00)
[2016-12-23] MEDS: INSULIN ASPART SUPPLEMENTAL SCALE SQ SCH ×5 (06:19→20:37)
[2016-12-23 06:32] VITALS: BP 121/71; PULSE 78; RESP 18; TEMP 97.7; O2SAT 97
[2016-12-23] MEDS: INSULIN ASPART 1,000 UNITS/10 ML VIAL SQ SCH ×3 (08:00→16:00)
[2016-12-23] MEDS: NICOTINE 21 MG/24 HR PATCH TD SCH (09:00)
[2016-12-23] MEDS: FLUoxetine HCL 20 MG CAP PO SCH (09:27)
[2016-12-23] MEDS: GABAPENTIN 400 MG CAP PO SCH ×4 (09:27→20:34)
[2016-12-23] MEDS: INSULIN DETEMIR 100 UNITS/ML VIAL SQ SCH ×2 (09:56→20:35)
--- NOTE | 2016-12-23 14:50 | HHI.PYPN ---
Subjective Remarks Patient was seen and case discussed with nursing. His mood is improving. He's been thinking a lot about his situation and is making plans for friends to stay with them after discharge. Good insight about his drug use and was seen working on an NA workbook. Compliant with his medications. Affect is improving. Denies suicidal ideation intent or plan Objective Alert: Yes [place]: Person, Place, Date, Situation Mood: Depressed Affect: Blunted Memory Intact: Recent (mildly impaired) Hallucinations: Other (patient denies any active auditory or visual hallucinations) Delusions: No Delusion Type: Other Suicidal: Ideation (patient denies any suicidal ideation intentions or plan and feels safe in the hospital) Homicidal: Ideation (denies) Insight/Judgement Improving Vitals/IOs Vital Signs Date Time Temp Pulse Resp B/P Pulse Ox O2 Delivery O2 Flow Rate FiO2 12/23/16 06:32 97.7 78 18 121/71 97 Assessment & Plan Problem List: (1) Depression ICD Code: F32.9 Assessment & Plan Continue current treatment plan Justification for Cont. Inpt. Patient will decompensate in a less restrictive setting Request HC Surrog/Guard Advoc?: No Problem Qualifiers (1) Depression: Qualified Code: F32.9 - Depression, unspecified depression type Yaniv Gillespie DO Dec 23, 2016 14:50
[2016-12-23 18:11] VITALS: BP 142/85; PULSE 85; RESP 18; TEMP 97.3; O2SAT 95
[2016-12-23 20:26] VITALS: BP 142/85; PULSE 85; RESP 17; TEMP 97.3; O2SAT 95
[2016-12-23] MEDS: hydrOXYzine PAMOATE 25 MG CAP PO PRN (20:34)
[2016-12-23] MEDS: REMOVE OLD NICODERM (NICOTINE) PATCH TD SCH (20:59)
[2016-12-24 05:16] VITALS: BP 131/76; PULSE 70; RESP 18; TEMP 98.4; O2SAT 96
[2016-12-24] MEDS: INSULIN ASPART SUPPLEMENTAL SCALE SQ SCH ×2 (06:22→11:15)
[2016-12-24] MEDS: INSULIN ASPART 1,000 UNITS/10 ML VIAL SQ SCH ×2 (08:57→11:16)
[2016-12-24] MEDS: INSULIN DETEMIR 100 UNITS/ML VIAL SQ SCH (08:57)
[2016-12-24] MEDS: NICOTINE 21 MG/24 HR PATCH TD SCH (08:59)
[2016-12-24] MEDS: FLUoxetine HCL 20 MG CAP PO SCH (09:00)
[2016-12-24] MEDS: GABAPENTIN 400 MG CAP PO SCH ×2 (09:03→12:54)
[2016-12-24] MEDS ORDERED: FLUO20CA4 PO (14:30)
[2016-12-24] MEDS ORDERED: LEVEMIR SQ (14:30)
[2016-12-24] MEDS ORDERED: NOVOLOGP2 SQ (14:30)
[2016-12-24] MEDS ORDERED: HYDR1CAP30 PO (14:30)
--- NOTE | 2016-12-24 14:30 | HHI.DS ---
Psychiatry Discharge Summary Inpatient Psychiatric care?: Yes Advance Directive: No Reason Not Provided: none Mental Health AdvanceDirective: No Health Care Proxy: No Admission Admission Date Dec 18, 2016 at 15:35 Admission Diagnosis: (1) Depression ICD Code: F32.9 Brief History This is a 36-year-old white male who came voluntarily to the emergency room wanting some help for his increasing symptoms of depression. With suicidal ideation. He claimed that he is feeling tired of life. He has a history of heroin and polysubstance abuse but he has been clean for the past 6 months he is going through the drug court. But lately he has been finding that he has no energy no motivation he feels hopeless he sleeps too much he denied any auditory or visual hallucinations. He feels highly anxious and nervous. No behavior or management problem reported. He is very cooperative and willing to try on Prozac and maybe Vistaril. He claimed that the drug court will not allow him to take Wellbutrin Tobacco Use In Past 30 Days: 5 or More Cigarettes/Day Alcohol Use: Never Hospital Course Patient was admitted to a locked, inpatient psychiatric unit. Appropriate precautions were in place throughout patient's hospital stay. A general medical consultation was obtained. Patient was seen and examined daily on the unit by psychiatry and also visited by counselor. Medications were adjusted. Patient was placed back on his Prozac, to which he reports a good response in the past. Patient tolerated medication changes well without side effects. Patient had significant improvement in his presenting psychiatric symptomatology. There was no evidence of any suicidal or homicidal behavior on the inpatient psychiatric unit. Patient remained in good behavioral control and was medication compliant. He participated in unit activities to a fair degree. Charting indicates that he has been sleeping and eating fairly well. On the day of discharge: Patient seen and examined with nurse. Chart reviewed. Case discussed with nursing staff who reports patient has been a behavioral problem, nor has there been any evidence of any ongoing suicidality. On my examination today, the patient is requesting discharge from the inpatient psychiatric unit. He denies any suicidal ideation, intent or plan on direct questioning. He is future oriented with several near and long-term goals including finding a daughter, whom he previously gave up for adoption. He is also hopeful about resuming his chemical dependency treatment for his history of opiate dependence. He denies any homicidal ideation. Mood is improved, and I can elicit no depressive or hypomanic/manic symptoms at this time. He denies any audiovisual hallucinations, and I can elicit no delusional beliefs. He denies any side effects from medications. He has no physical complaints. Weighing the acute, chronic, and protective factors and based on the available evidence, I district court judge to reasonable degree of medical certainty that the patient is at low imminent risk of harm to self or others from a mental illness as defined under the [place] act, and his level of function is adequate for outpatient care. Given that the patient does not meet criteria for involuntary psychiatric hospitalization and given that he is requesting discharge from the inpatient psychiatric unit today, I will arrange for his discharge today with psychiatric follow-up as arranged by counselors. Patient is also to follow-up with primary care. I have supported the patient in his desire to maintain his abstinence from substances. I have reminded the patient of the warning signs for need to return to the psychiatric emergency room as part of a general safety plan. I have provided the patient with prescriptions for his Prozac and Vistaril along with his insulin, the dose of which has been changed. Patient reports that he has an adequate supply of all other medications at home. Results Blood Pressure 131 / 76 Vital Signs Date Time Temp Pulse Resp B/P Pulse Ox O2 Delivery O2 Flow Rate FiO2 12/24/16 05:16 98.4 70 18 131/76 96 Item Value Date Time White Blood Count 8.8 TH/MM3 12/17/16 1520 Hemoglobin 16.4 GM/DL 12/17/16 1520 Platelet Count 247 TH/MM3 12/17/16 1520 Sodium Level 135 MEQ/L L 12/19/16 0657 Potassium Level 4.5 MEQ/L 12/19/16 0657 Chloride Level 101 MEQ/L 12/19/16 0657 Carbon Dioxide Level 26.6 MEQ/L 12/19/16 0657 Blood Urea Nitrogen 20 MG/DL H 12/19/16 0657 Creatinine 1.16 MG/DL 12/19/16 0657 Estimat Glomerular Filtration Rate 72 ML/MIN L 12/19/16 0657 Aspartate Amino Transf (AST/SGOT) 11 U/L L 12/17/16 1520 Alanine Aminotransferase (ALT/SGPT) 29 U/L 12/17/16 1520 Alkaline Phosphatase 152 U/L H 12/17/16 1520 Summary of Procedures None done Imaging None done Pending results at discharge: No Medications # of Antipsychotic meds at D/C: 0 Approp Antipsych med options 1 - Minimum of three failed multiple trials of monotherapy. 2 - Documented plan to taper to monotherapy due to previous use of multiple meds OR cross-taper in progress at D/C. 3 - Documentation of augmentation of Clozapine. 4 - Justification other than those listed in allowable values 1-3, document here : Discharge Discharge Date: Dec 24, 2016 Discharge Diagnosis: (1) Depression Diagnosis: Principal (stabilized ) ICD Code: F32.9 (2) Opiate dependence Diagnosis: Principal ICD Code: F11.20 GAF on discharge is 60 Mental Status Exam at Disch Patient is casually dressed. He is well groomed. He is awake and alert and oriented 3. No abnormal motor movements noted. Steady gait and station. Speech is within normal limits for rate, tone and volume. Linkage and fund of knowledge seem average. Mood is reportedly improved versus admission and affect is full and reactive. Thought process linear. No loosening of associations. No evident delusions. Denies audiovisual hallucinations. Denies suicidal or homicidal ideation. Insight and judgment are fair. Pt Condition on Discharge: Stable Discharge Disposition: Discharge Home Discharge Instructions Diet Instructions: Diabetic Diet Activities you can perform: Weight Bearing as [place] Scheduled Appointment: as per counselor's notes New Medications: Fluoxetine (Fluoxetine) 20 Mg Cap 80 MG PO DAILY Mental Health Days 15 Ref 1 CAP Hydroxyzine Pamoate (Hydroxyzine Pamoate) 25 Mg Cap 25 MG PO Q6H PRN anxiety Days 15 Ref 1 CAP Insulin Aspart Inj (Novolog Inj) 1,000 Unit/10 Ml Vial 1 UNITS SQ DIRECTED 4 units SQ before breakfast. 6 units SQ before lunch. 6 units SQ before dinner. Blood Sugar Management Days 15 Ref 1 INJECTION Insulin Detemir Inj (Levemir Inj) 1,000 unit/ 10 ML Vial 1 UNITS SQ DIRECTED 20 units SQ qAM and 18 units SQ qHS. Blood Sugar Management Days 15 Ref 1 INJECTION Continued Medications: Gabapentin (Gabapentin) 800 Mg Tab 800 MG PO QID #120 Ref 4 TAB Discontinued Medications: Insulin Aspart Inj (Novolog Inj) 1,000 Unit/10 Ml Vial 0 SQ DIRECTED Sliding Scale as directed. Blood Sugar Management #10 Ref 0 ML Insulin Glargine Inj (Lantus Inj) 1,000 Unit/10 Ml Vial 35 UNITS SQ HS Blood Sugar Management Ref 0 VIAL Vortioxetine (Trintellix) 20 Mg Tab 20 MG PO DAILY Control Depression #30 Ref 0 TAB Discharge Time > 30 minutes Discharge/Advance Care Plan Health Problems: (1) Depression Goals to promote your health * To prevent worsening of your condition and complications * To maintain your health at the optimal level Directions to meet your goals Take your medications as prescribed Follow your dietary instruction Follow activity as directed Keep your appointments as scheduled Take your immunizations and boosters as scheduled If your symptoms worsen call your PCP, if no PCP go to Urgent Care Center or Emergency Room For 06/05 questions related to your inpatient stay or results of tests pending at discharge, please contact Dr. Finn Andres at Smoking is Dangerous to Your Health. Avoid second hand smoking Problem Qualifiers (1) Depression: Qualified Code: F32.9 - Depression, unspecified depression type (2) Opiate dependence: Qualified Code: F11.21 - Opioid dependence in remission Finn Andres MD Dec 24, 2016 14:30
[2016-12-31] MEDS ORDERED: NOVORP2 SQ (15:00)
[2017-01-22] MEDS ORDERED: BLOOD GLUCOSE T1 TES (10:26)
[2017-01-22] MEDS ORDERED: FLUO20CA4 PO (10:26)
[2017-01-22] MEDS ORDERED: INSU-169 (10:28)
[2017-01-30] MEDS ORDERED: FLUO20CA4 PO (09:49)
== END 2016-12-24 16:55 | disposition home or self-care (01) | DRG 881 ==
LOC: NEPC 13:32 → NEDA 12-18 15:35 → H260 12-18 15:50
PROVIDERS: ADMIT Psychiatry & Neurology Psychiatry; ATTEND Psychiatry & Neurology Psychiatry
DX: F32.9 Major depressive disorder, single episode, unspecified (principal); E10.40 Type 1 diabetes mellitus with diabetic neuropathy, unspecified; R45.851 Suicidal ideations; F11.20 Opioid dependence, uncomplicated; F90.9 Attention-deficit hyperactivity disorder, unspecified type; E10.65 Type 1 diabetes mellitus with hyperglycemia; E16.2 Hypoglycemia, unspecified; Z72.0 Tobacco use; Z79.4 Long term (current) use of insulin
CPT/HCPCS: 80048; 80053; 80061; 80307; 82948; 83036; 85025; 93005; 96372; J1815; Q0177

== ENCOUNTER 2017-01-07 18:33 | Emergency (ER) | payer SELFPAY ==
[~2017-01-07] VITALS: Ht 185.4 cm; Wt 92.9 kg
[~2017-01-07 18:33] MED LIST changes: +FLUO20CA4 PO; +HYDR1CAP30 PO; -LANTUS2P SQ; +LEVEMIR SQ; +NOVORP2 SQ
[2017-01-07 18:36] VITALS: BP 138/94; PULSE 93; RESP 18; TEMP 98.1; O2SAT 98
[2017-01-07 19:00] VITALS: BP 134/83; PULSE 86; RESP 18; O2SAT 96
[2017-01-07] MEDS ORDERED: ONDANSETRON HCL 4 MG/2 ML VIAL IV PUSH ONE (19:00)
[2017-01-07] MEDS ORDERED: INSULIN HUMAN NPH 1,000 UNITS/10 ML VIAL SQ ONE (19:00)
[2017-01-07] MEDS ORDERED: SODIUM CHLOR 0.9% 1000 ML INJ 1,000 ML IV ONE ×2 (19:00)
--- NOTE | 2017-01-07 19:14 | PD ---
HPI Chief Complaint: Diabetic Time Seen by Provider: 18:41 Travel History International Travel<30 days: No Contact w/Intl Traveler<30days: No Traveled to known affect area: No History of Present Illness HPI 36-year-old male is complaining of possible high blood sugar. He has a history of diabetes for 20 years. He has been trying to change himself from Humalog . Humulin R visit fever. Since he has been trying to change her sugars have been erratic. They have been low a few times but more commonly there are high. He has developed some nausea. He is also on Levemir. He has not been short of breath but is concerned that he may be developing some ketoacidosis. He has been feeling nauseated. He was recently hospitalized for depression and was released on Prozac and Vistaril. He has a history of polysubstance abuse, clean for 7 months PFSH Past Medical History ADHD: Yes Arthritis: No Asthma: No Blood Disorders: No Anxiety: Yes Depression: Yes Heart Rhythm Problems: No Cancer: No Cardiovascular Problems: Yes (per pt) Chemotherapy: No Chest Pain: No Congestive Heart Failure: No COPD: No Diabetes: Yes Patient Takes Glucophage: No Diminished Hearing: No Endocrine: Yes Gastrointestinal Disorders: Yes Genitourinary: No Headaches: Yes (per pt frequently ) Hepatitis: Yes (C) Hiatal Hernia: No Hypertension: No Immune Disorder: No Implanted Vascular Access Dvce: No Musculoskeletal: No Neurologic: Yes (NEUROPATHY LEGS/ FEET) Psychiatric: Yes ( Major depression chronic recurrent. History of Substance Abuse ) Reproductive: No Respiratory: No Immunizations Current: No Radiation Therapy: No Seizures: No (per pt) Sleep Apnea: No Thyroid Disease: No Tetanus Vaccination: > 5 Years Influenza Vaccination: Yes Past Surgical History Abdominal Surgery: No AICD: No Cardiac Surgery: No Ear Surgery: No Endocrine Surgery: Yes (diabetic) Eye Surgery: No Genitourinary Surgery: No Gynecologic Surgery: No Joint Replacement: No Oral Surgery: No Pacemaker: No Thoracic Surgery: No Other Surgery: Yes Social History Alcohol Use: No Tobacco Use: Yes (1 PACK/DAY) Substance Use: Yes (EARLY REMISSION (7 MONTHS)FROM HEROIN, AND POLYSUBSTANCE) Allergies-Medications (Allergen,Severity, Reaction): Coded Allergies: Acetaminophen (Verified Adverse Reaction, Mild, NAUSEA, 01/07/17) 05/30/16 DENIES ALLERGY Uncoded Allergies: NARCOTICS (Adverse Reaction, Unknown, 10/29/16) hx of opoid abuse, IVDU, avoid.. Reported Meds & Prescriptions Reported Meds & Active Scripts Active Novolin R Inj (Insulin Human Regular) 1,000 Unit/10 Ml Vial 0 SQ DIRECTED Sliding Scale As Directed. Levemir Inj (Insulin Detemir) 1,000 unit/ 10 ML Vial 1 Units SQ DIRECTED 15 Days 20 units SQ qAM and 18 units SQ qHS. Fluoxetine (Fluoxetine HCl) 20 Mg Cap 80 Mg PO DAILY 15 Days Gabapentin 800 Mg Tab 800 Mg PO QID Review of Systems General / Constitutional: No: Fever, Chills Eyes: No: Diploplia, Blurred Vision Cardiovascular: No: Chest Pain or Discomfort, Palpitations Respiratory: No: Cough, Shortness of Breath Gastrointestinal: Positive: Nausea Genitourinary: Positive: Frequency Musculoskeletal: No: Myalgias Skin: No Rash Physical Exam Narrative GENERAL: Well-developed male SKIN: Focused skin assessment warm/dry. HEAD: Atraumatic. Normocephalic. EYES: Pupils equal and round. No scleral icterus. No injection or drainage. ENT: No nasal bleeding or discharge. Mucous membranes pink and moist. NECK: Trachea midline. No JVD. CARDIOVASCULAR: Regular rate and rhythm. No murmur appreciated. RESPIRATORY: No accessory muscle use. Clear to auscultation. Breath sounds equal bilaterally. GASTROINTESTINAL: Abdomen soft, non-tender, nondistended. Hepatic and splenic margins not palpable. MUSCULOSKELETAL: No obvious deformities. No clubbing. No cyanosis. No edema. NEUROLOGICAL: Awake and alert. No obvious cranial nerve deficits. Motor grossly within normal limits. Normal speech. PSYCHIATRIC: Appropriate mood and affect; insight and judgment normal. Data Data Last Documented VS Vital Signs Date Time Temp Pulse Resp B/P Pulse Ox O2 Delivery O2 Flow Rate FiO2 01/07/17 20:40 18 96 Room Air 01/07/17 20:40 74 126/78 01/07/17 18:36 98.1 Orders Complete Blood Count With Diff (01/07/17 18:58) Comprehensive Metabolic Panel (01/07/17 18:58) Urinalysis - C+S If Indicated (01/07/17 18:58) Beta Hydroxybutyrate (Acetone) (01/07/17 18:58) Sodium Chlor 0.9% 1000 Ml Inj (Ns 1000 M (01/07/17 19:00) Sodium Chlor 0.9% 1000 Ml Inj (Ns 1000 M (01/07/17 19:00) Ondansetron Inj (Zofran Inj) (01/07/17 19:00) Insulin Human Nph Inj (Novolin N Inj) (01/07/17 19:00) Insulin Human Regular Inj (Novolin R Inj (01/07/17 19:30) Insulin Human Regular Inj (Novolin R Inj (01/07/17 20:30) Labs Laboratory Tests Test 01/07/17 19:27 White Blood Count 6.1 TH/MM3 Red Blood Count 5.27 MIL/MM3 Hemoglobin 15.3 GM/DL Hematocrit 46.5 % Mean Corpuscular Volume 88.2 FL Mean Corpuscular Hemoglobin 29.0 PG Mean Corpuscular Hemoglobin 32.8 % Concent Red Cell Distribution Width 13.0 % Platelet Count 252 TH/MM3 Mean Platelet Volume 8.6 FL Neutrophils (%) (Auto) 63.3 % Lymphocytes (%) (Auto) 24.0 % Monocytes (%) (Auto) 7.6 % Eosinophils (%) (Auto) 4.4 % Basophils (%) (Auto) 0.7 % Neutrophils # (Auto) 3.8 TH/MM3 Lymphocytes # (Auto) 1.5 TH/MM3 Monocytes # (Auto) 0.5 TH/MM3 Eosinophils # (Auto) 0.3 TH/MM3 Basophils # (Auto) 0.0 TH/MM3 CBC Comment DIFF FINAL Differential Comment Urine Color YELLOW Urine Turbidity CLEAR Urine pH 6.0 Urine Specific [place] 1.027 Urine Protein TRACE mg/dL Urine Glucose (UA) 500 mg/dL Urine Ketones NEG mg/dL Urine Occult Blood NEG Urine Nitrite NEG Urine Bilirubin NEG Urine Leukocyte Esterase NEG Urine RBC 4-9 /hpf Urine Squamous Epithelial 0-5 /hpf Cells Urine Mucus FEW /lpf Microscopic Urinalysis Comment CULT NOT INDICATED Sodium Level 134 MEQ/L Potassium Level 4.2 MEQ/L Chloride Level 98 MEQ/L Carbon Dioxide Level 27.0 MEQ/L Anion Gap 9 MEQ/L Blood Urea Nitrogen 19 MG/DL Creatinine 1.20 MG/DL Estimat Glomerular Filtration 69 ML/MIN Rate Random Glucose 466 MG/DL Calcium Level 8.4 MG/DL Total Bilirubin 0.7 MG/DL Aspartate Amino Transf 10 U/L (AST/SGOT) Alanine Aminotransferase 22 U/L (ALT/SGPT) Alkaline Phosphatase 126 U/L Total Protein 7.2 GM/DL Albumin 3.8 GM/DL B-Hydroxybutyrate 0.27 MMOL/L MDM Medical Decision Making Medical Screen Exam Complete: Yes Emergency Medical Condition: Yes Medical Record Reviewed: Yes Differential Diagnosis Differential includes DKA, hyperglycemia Narrative Course Beta hydroxybutyrate is normal. His sugar is elevated but there is no evidence of DKA. He has been given IV fluids and repeated doses of insulin. His sugars come down to about 300. He is stable for discharge Diagnosis Primary Impression: Hyperglycemia due to type 1 diabetes mellitus Disposition: DISCHARGE HOME Condition: Stable Noel Pearce MD Jan 07, 2017 19:13
[2017-01-07] MEDS ORDERED: INSULIN HUMAN REGULAR 1,000 UNITS/10 ML VIAL SQ ONE ×2 (19:30→20:30)
[2017-01-07 19:48] LABS: AUTOMATED NEUTROPHIL # 3.8 TH/MM3 (1.8-7.7); BASOPHIL % 0.7 % (0.0-2.0); BLOOD, URINE NEG (NEG); EOSINOPHIL # 0.3 TH/MM3 (0-0.4); EOSINOPHIL % 4.4 % (0.0-4.0); GLUCOSE,URINE 500 mg/dL (NEG); HEMATOCRIT 46.5 % (39.0-51.0); HEMO FLAGS DIFF FINAL; KETONE, URINE NEG (NEG); LYMPHOCYTE # 1.5 TH/MM3 (1.0-4.8); MEAN CELL VOLUME 88.2 FL (80.0-100.0); MEAN CORPUSCULAR HGB CONC 32.8 % (32.0-36.0); MONO % 7.6 % (0.0-8.0); NEUT % 63.3 % (16.0-70.0); NITRITE,URINE NEG (NEG); PLATELET COUNT 252 TH/MM3 (150-450); RED BLOOD COUNT 5.27 MIL/MM3 (4.50-5.90); WHITE BLOOD COUNT 6.1 TH/MM3 (4.0-11.0)
[2017-01-07 19:57] LABS: CHLORIDE 98 MEQ/L (98-107); POTASSIUM 4.2 MEQ/L (3.5-5.1); SODIUM (NA) 134 MEQ/L (136-145)
[2017-01-07 20:01] LABS: ANION GAP 9 MEQ/L (5-15); URINE COLOR YELLOW (YELLW/STRAW)
[2017-01-07 20:02] LABS: COMMENT (UR) CULT NOT INDICATED; CULTURE IF INDICATED CULT NOT INDICATED; MUCUS URINE FEW /lpf (OCC); SQUAMOUS EPITHELIAL CELL URINE 0-5 /hpf (0-5)
[2017-01-07 20:16] LABS: ALKALINE PHOSPHATASE 126 U/L (45-117); ALT (GPT) 22 U/L (12-78); AST (GOT) 10 U/L (15-37); BETA-HYDROXYBUTYRATE 0.27 MMOL/L (0.00-0.39); BLOOD UREA NITROGEN 19 MG/DL (7-18); GLOMERULAR FILTRATION RATE 69 ML/MIN (>89); TOTAL BILIRUBIN ADULT 0.7 MG/DL (0.2-1.0)
[2017-01-07 20:40] VITALS: BP 126/78; PULSE 74; RESP 18; O2SAT 96
[2017-01-22] MEDS ORDERED: BLOOD GLUCOSE T1 TES (10:26)
[2017-01-22] MEDS ORDERED: FLUO20CA4 PO (10:26)
[2017-01-22] MEDS ORDERED: INSU-169 (10:28)
[2017-01-30] MEDS ORDERED: FLUO20CA4 PO (09:49)
== END 2017-01-07 21:50 | disposition home or self-care (01) ==
LOC: PHED 18:33
DX: E10.65 Type 1 diabetes mellitus with hyperglycemia (principal); Z79.4 Long term (current) use of insulin
CPT/HCPCS: 80053; 81001; 82010; 85025; 96361; 96372; 96374; 99284; J1815; J2405; J7030

== ENCOUNTER 2017-01-09 13:38 | Emergency (ER) | payer SELFPAY ==
[~2017-01-09] VITALS: Ht 185.4 cm; Wt 92.0 kg
[~2017-01-09 13:38] MED LIST changes: -HYDR1CAP30 PO; -NOVOLOGP2 SQ
[2017-01-09 13:39] VITALS: BP 164/75; PULSE 110; RESP 20; TEMP 98.4; O2SAT 97
[2017-01-09] MEDS ORDERED: SODIUM CHLOR 0.9% 1000 ML INJ 1,000 ML IV ONE ×2 (16:15→16:30)
[2017-01-09] MEDS ORDERED: SODIUM CHLORIDE 0.9% FLUSH 10 ML FLUSH IVF PRN (16:15)
--- NOTE | 2017-01-09 16:19 | PD ---
HPI Chief Complaint: Diabetic Time Seen by Provider: 16:18 Travel History International Travel<30 days: No Contact w/Intl Traveler<30days: No Traveled to known affect area: No History of Present Illness HPI 36-year-old male with history of type 1 diabetes presents to the emergency department for evaluation of hyperglycemia. Patient states his blood glucose has been greater than 400 all day. He states he's been struggling lately keeping his blood glucose low. States that he was recently switched from Humulin to Novolog and he is concerned that it is not working well. He states he has not eaten all day and his blood glucose continues to rise. Reports nausea and vomiting. He did have some episodes of lightheadedness when his glucose was elevated. Denies any fever or chills. No cough or chest congestion. No other symptoms to report at this time. Patient's primary care provider is Dr. Zhang whom he states he has not informed of his blood glucose being elevated. PFSH Past Medical History ADHD: Yes Arthritis: No Asthma: No Blood Disorders: No Anxiety: Yes Depression: Yes Heart Rhythm Problems: No Cancer: No Cardiovascular Problems: Yes (per pt) Chemotherapy: No Chest Pain: No Congestive Heart Failure: No COPD: No Diabetes: Yes Diminished Hearing: No Endocrine: Yes Gastrointestinal Disorders: Yes Genitourinary: No Headaches: Yes (per pt frequently ) Hepatitis: Yes (C) Hiatal Hernia: No Hypertension: No Immune Disorder: No Implanted Vascular Access Dvce: No Musculoskeletal: No Neurologic: Yes (NEUROPATHY LEGS/ FEET) Psychiatric: Yes ( Major depression chronic recurrent. History of Substance Abuse ) Reproductive: No Respiratory: No Immunizations Current: No Radiation Therapy: No Seizures: No (per pt) Sleep Apnea: No Thyroid Disease: No Past Surgical History Abdominal Surgery: No AICD: No Cardiac Surgery: No Ear Surgery: No Endocrine Surgery: Yes (diabetic) Eye Surgery: No Genitourinary Surgery: No Gynecologic Surgery: No Joint Replacement: No Oral Surgery: No Pacemaker: No Thoracic Surgery: No Other Surgery: Yes Social History Alcohol Use: No Tobacco Use: Yes (1 PACK/DAY) Substance Use: Yes (EARLY REMISSION (7 MONTHS)FROM HEROIN, AND POLYSUBSTANCE) Allergies-Medications (Allergen,Severity, Reaction): Coded Allergies: Acetaminophen (Verified Adverse Reaction, Mild, NAUSEA, 01/09/17) 05/30/16 DENIES ALLERGY Uncoded Allergies: NARCOTICS (Adverse Reaction, Unknown, 10/29/16) hx of opoid abuse, IVDU, avoid.. Reported Meds & Prescriptions Reported Meds & Active Scripts Active Novolin R Inj (Insulin Human Regular) 1,000 Unit/10 Ml Vial 0 SQ DIRECTED Sliding Scale As Directed. Levemir Inj (Insulin Detemir) 1,000 unit/ 10 ML Vial 1 Units SQ DIRECTED 15 Days 20 units SQ qAM and 18 units SQ qHS. Fluoxetine (Fluoxetine HCl) 20 Mg Cap 80 Mg PO DAILY 15 Days Gabapentin 800 Mg Tab 800 Mg PO QID Review of Systems Except as stated in HPI: all other systems reviewed are Neg Physical Exam Narrative GENERAL: Well-nourished male patient, in no acute distress SKIN: Warm and dry. HEAD: Atraumatic. Normocephalic. EYES: Pupils equal and round. No scleral icterus. No injection or drainage. ENT: No nasal bleeding or discharge. Mucous membranes pink and moist. NECK: Trachea midline. No JVD. CARDIOVASCULAR: Tachycardic rate and rhythm. No murmur appreciated. RESPIRATORY: No accessory muscle use. Clear to auscultation. Breath sounds equal bilaterally. GASTROINTESTINAL: Abdomen soft, non-tender, nondistended. Hepatic and splenic margins not palpable. MUSCULOSKELETAL: No obvious deformities. No clubbing. No cyanosis. No edema. NEUROLOGICAL: Awake and alert. No obvious cranial nerve deficits. Motor grossly within normal limits. Normal speech. PSYCHIATRIC: Appropriate mood and affect; insight and judgment normal. Data Data Last Documented VS Vital Signs Date Time Temp Pulse Resp B/P Pulse Ox O2 Delivery O2 Flow Rate FiO2 01/09/17 20:08 90 16 138/86 97 01/09/17 16:57 Room Air 01/09/17 13:39 98.4 Orders Basic Metabolic Panel (Bmp) (01/09/17 16:14) Complete Blood Count With Diff (01/09/17 16:14) Ecg Monitoring (01/09/17 16:14) Bilateral Bp Monitoring (01/09/17 16:14) Iv Access Insert/Monitor (01/09/17 16:14) Oximetry (01/09/17 16:14) Oxygen Administration (01/09/17 16:14) Sodium Chloride 0.9% Flush (Ns Flush) (01/09/17 16:15) Beta Hydroxybutyrate (Acetone) (01/09/17 16:14) Sodium Chlor 0.9% 1000 Ml Inj (Ns 1000 M (01/09/17 16:15) Urinalysis - C+S If Indicated (01/09/17 16:14) Sodium Chlor 0.9% 1000 Ml Inj (Ns 1000 M (01/09/17 16:30) Insulin Human Regular Inj (Novolin R Inj (01/09/17 18:30) Blood Glucose (01/09/17 18:49) Labs Laboratory Tests Test 01/09/17 01/09/17 16:53 17:36 White Blood Count 7.8 TH/MM3 Red Blood Count 5.06 MIL/MM3 Hemoglobin 15.4 GM/DL Hematocrit 44.1 % Mean Corpuscular Volume 87.2 FL Mean Corpuscular Hemoglobin 30.5 PG Mean Corpuscular Hemoglobin 35.0 % Concent Red Cell Distribution Width 13.5 % Platelet Count 253 TH/MM3 Mean Platelet Volume 8.7 FL Neutrophils (%) (Auto) 63.0 % Lymphocytes (%) (Auto) 27.2 % Monocytes (%) (Auto) 7.3 % Eosinophils (%) (Auto) 2.1 % Basophils (%) (Auto) 0.4 % Neutrophils # (Auto) 4.9 TH/MM3 Lymphocytes # (Auto) 2.1 TH/MM3 Monocytes # (Auto) 0.6 TH/MM3 Eosinophils # (Auto) 0.2 TH/MM3 Basophils # (Auto) 0.0 TH/MM3 CBC Comment DIFF FINAL Differential Comment Urine Color LIGHT-YELLOW Urine Turbidity CLEAR Urine pH 6.5 Urine Specific [place] 1.026 Urine Protein NEG mg/dL Urine Glucose (UA) 1000 mg/dL Urine Ketones NEG mg/dL Urine Occult Blood NEG Urine Nitrite NEG Urine Bilirubin NEG Urine Urobilinogen LESS THAN 2.0 MG/DL Urine Leukocyte Esterase NEG Urine RBC 2 /hpf Urine WBC 1 /hpf Microscopic Urinalysis Comment CULT NOT INDICATED Sodium Level 135 MEQ/L Potassium Level 4.8 MEQ/L Chloride Level 102 MEQ/L Carbon Dioxide Level 26.0 MEQ/L Anion Gap 7 MEQ/L Blood Urea Nitrogen 16 MG/DL Creatinine 1.16 MG/DL Estimat Glomerular Filtration 72 ML/MIN Rate Random Glucose 426 MG/DL Calcium Level 8.4 MG/DL B-Hydroxybutyrate 0.20 MMOL/L MDM Medical Decision Making Medical Screen Exam Complete: Yes Emergency Medical Condition: Yes Medical Record Reviewed: Yes Differential Diagnosis Hyperglycemia versus DKA versus normal exam versus noncompliance Narrative Course 36-year-old male presents to the emergency department for evaluation of elevated blood glucose. CBC is without acute concern. BMP is with hyperglycemia 426. Hydroxybutyrate is 0.20. Urinalysis is with 1000 glucosuria. I discussed the patient with my attending physician Dr. Bailey. Patient is given IV fluids and 8 units regular insulin IV. Patient recheck blood glucose is 154. Patient be discharged home. He is instructed to contact Dr. Zhang and follow-up in regards to his blood glucose. He is to continue his medication as prescribed. He agrees to return immediately with any acute worsening symptoms. Diagnosis Primary Impression: Hyperglycemia due to type 1 diabetes mellitus Referrals: Primary Care Physician Patient Instructions: Diabetic Hyperglycemia (ED), General Instructions Departure Forms: Tests/Procedures, Work Release Enter return to work date: Jan 11, 2017 Additional Instructions: It is important that you follow-up with your primary care provider. Make sure you tell them that your blood glucose has been very labile and running high Return immediately to the emergency department with any acute worsening of symptoms Med/Other Pt SpecificInfo: No Change to Meds Disposition: 01 DISCHARGE HOME Condition: Stable Ros Martinez Jan 09, 2017 16:19
[2017-01-09 16:57] VITALS: BP 127/90; PULSE 87; RESP 18; O2SAT 96
[2017-01-09 17:13] LABS: BLOOD, URINE NEG (NEG); GLUCOSE,URINE 1000 mg/dL (NEG); KETONE, URINE NEG (NEG); NITRITE,URINE NEG (NEG); PH, URINE 6.5 (5.0-8.5); URINE COLOR LIGHT-YELLOW (YELLW/STRAW)
[2017-01-09 17:15] LABS: COMMENT (UR) CULT NOT INDICATED; CULTURE IF INDICATED CULT NOT INDICATED
[2017-01-09 17:25] LABS: AUTOMATED NEUTROPHIL # 4.9 TH/MM3 (1.8-7.7); BASOPHIL % 0.4 % (0.0-2.0); EOSINOPHIL # 0.2 TH/MM3 (0-0.4); EOSINOPHIL % 2.1 % (0.0-4.0); HEMATOCRIT 44.1 % (39.0-51.0); HEMO FLAGS DIFF FINAL; LYMPH % 27.2 % (9.0-44.0); LYMPHOCYTE # 2.1 TH/MM3 (1.0-4.8); MEAN CELL VOLUME 87.2 FL (80.0-100.0); MEAN CORPUSCULAR HEMOGLOBIN 30.5 PG (27.0-34.0); MONO % 7.3 % (0.0-8.0); PLATELET COUNT 253 TH/MM3 (150-450); RED BLOOD COUNT 5.06 MIL/MM3 (4.50-5.90); RED CELL DISTRIBUTION WIDTH 13.5 % (11.6-17.2); WHITE BLOOD COUNT 7.8 TH/MM3 (4.0-11.0)
[2017-01-09 18:11] LABS: BETA-HYDROXYBUTYRATE 0.2 MMOL/L (0.00-0.39); POTASSIUM 4.8 MEQ/L (3.5-5.1)
[2017-01-09] MEDS ORDERED: INSULIN HUMAN REGULAR 1,000 UNITS/10 ML VIAL IV PUSH ONE (18:30)
[2017-01-09 20:08] VITALS: BP 138/86
[2017-01-22] MEDS ORDERED: FLUO20CA4 PO (10:26)
[2017-01-22] MEDS ORDERED: BLOOD GLUCOSE T1 TES (10:26)
[2017-01-22] MEDS ORDERED: INSU-169 (10:28)
[2017-01-30] MEDS ORDERED: FLUO20CA4 PO (09:49)
== END 2017-01-09 20:19 | disposition home or self-care (01) ==
LOC: NEPE 13:38
DX: E10.65 Type 1 diabetes mellitus with hyperglycemia (principal); R11.2 Nausea with vomiting, unspecified; R42 Dizziness and giddiness; F17.200 Nicotine dependence, unspecified, uncomplicated; Z79.4 Long term (current) use of insulin; Z86.59 Personal history of other mental and behavioral disorders; Z86.79 Personal history of other diseases of the circulatory system; Z87.19 Personal history of other diseases of the digestive system; Z86.69 Personal history of other diseases of the nervous system and sense organs
CPT/HCPCS: 80048; 81001; 82010; 85025; 96361; 96374; 99284; J1815; J7030

== ENCOUNTER 2018-01-21 13:51 | Emergency (ER) | payer SELFPAY ==
[~2018-01-21 13:51] MED LIST changes: +ALBUAER3 INH; +AZIT250T3 PO; +BLOOD GLUCOSE T1 TES; +FLUO20CA12 PO; -FLUO20CA4 PO; +LISI10TA3 PO; +NOVOLOG; -NOVORP2 SQ; +PERM5CRE TOPICAL; +PRED20 PO; +REME15TA PO; +hydroxyzine PO
[2018-01-21 14:02] VITALS: BP 126/73; PULSE 93; RESP 14; TEMP 98.8; O2SAT 99
[2018-01-21] MEDS ORDERED: LISI10TA3 PO (14:27)
[2018-01-21] MEDS ORDERED: VENTAER INH (15:23)
[2018-01-21] MEDS ORDERED: BENZ100 PO (15:23)
[2018-01-21] MEDS ORDERED: AZIT500T2 PO (15:23)
[2018-01-21] MEDS ORDERED: PRED-503 PO (15:23)
--- NOTE | 2018-01-21 15:23 | PD ---
HPI Chief Complaint: Cold / Flu Symptoms Time Seen by Provider: 15:13 Travel History International Travel<30 days: No Contact w/Intl Traveler<30days: No Traveled to known affect area: No History of Present Illness HPI 37-year-old male presents to the emergency department with complaint of a cough for the past couple months and worse for the past few weeks. He says he was seen in [place] a little over a month ago and was treated with antibiotics, steroids, and an inhaler for bronchitis. He says he never filled the inhaler because it was too expensive. He says his symptoms never improved during that course of treatment. Denies chest pain, shortness of breath. Says he does have shortness of breath with coughing and taking a deep breath. Denies hemoptysis. Denies chest tightness, wheezing. Denies fevers. Denies nasal congestion, ear pain, sore throat. Smokes a vaporizer. Has not taken any other medications or try any other treatments to alleviate his symptoms. Cough is worse with overexertion. Better with relaxation. Primary CARE providers Dr. Zhang. Allergies to narcotics. History of type 1 diabetes mellitus and hypertension. Has no other medical complaints. No other modifying factors or associated signs and symptoms. PFSH Past Medical History ADHD: Yes Arthritis: No Asthma: No Blood Disorders: No Anxiety: Yes Depression: Yes Heart Rhythm Problems: No Cancer: No Cardiovascular Problems: Yes (htn on meds) Chemotherapy: No Chest Pain: No Congestive Heart Failure: No COPD: No Diabetes: Yes (type 1) Patient Takes Glucophage: No Diminished Hearing: No Endocrine: Yes Gastrointestinal Disorders: No Genitourinary: No Headaches: Yes (per pt frequently ) Hepatitis: Yes (C) Hiatal Hernia: No Hypertension: No Immune Disorder: No Implanted Vascular Access Dvce: No Musculoskeletal: No Neurologic: Yes (NEUROPATHY LEGS/ FEET) Psychiatric: Yes ( Major depression chronic recurrent. History of Substance Abuse ) Reproductive: No Respiratory: No Immunizations Current: No Radiation Therapy: No Sleep Apnea: No Thyroid Disease: No Tetanus Vaccination: > 5 Years Past Surgical History Abdominal Surgery: No AICD: No Cardiac Surgery: No Ear Surgery: No Endocrine Surgery: Yes (diabetic) Eye Surgery: Yes (RETNIAL SX) Genitourinary Surgery: No Gynecologic Surgery: No Joint Replacement: No Neurologic Surgery: No Oral Surgery: No Pacemaker: No Thoracic Surgery: No Other Surgery: Yes Social History Alcohol Use: No Tobacco Use: Yes (1/2 PACK/DAY) Substance Use: Yes (HX OF HEROIN, AND POLYSUBSTANCE) Allergies-Medications (Allergen,Severity, Reaction): Coded Allergies: acetaminophen (Unverified Adverse Reaction, Mild, NAUSEA, 01/21/18) 05/30/16 DENIES ALLERGY Uncoded Allergies: NARCOTICS (Adverse Reaction, Unknown, 12/15/17) hx of opoid abuse, IVDU, avoid... Reported Meds & Prescriptions Reported Meds & Active Scripts Active Tessalon Perles (Benzonatate) 100 Mg Cap 100 Mg PO TID PRN 3 Days Deltasone (Prednisone) 20 Mg Tab 40 Mg PO DAILY 4 Days start 01/22/2018 Ventolin Hfa 18 GM Inh (Albuterol Sulfate) 90 Mcg/Act Aer 2 Puff INH Q4-6H PRN Azithromycin 500 Mg Tab 500 Mg PO DAILY [NovoLog] Sliding scale as directed, see history from note June 07, 2017. Levemir Inj (Insulin Detemir) 1,000 unit/ 10 ML Vial 1 Units SQ DIRECTED 15 Days 18 units SQ qAM and 22 units SQ qHS. Gabapentin 800 Mg Tab 800 Mg PO QID One four times a day for neuropathy (painful lower extremities) Reported Lisinopril 10 Mg Tab 10 Mg PO DAILY Review of Systems Except as stated in HPI: all other systems reviewed are Neg Physical Exam Narrative GENERAL: Well-nourished, well-developed male patient, in no acute distress; afebrile, nontoxic-appearing SKIN: Warm and dry. HEAD: Atraumatic. Normocephalic. EYES: Pupils equal and round. No scleral icterus. No injection or drainage. ENT: Mucosa pink and moist. No erythema or exudates. No uvular edema. No uvular , palatal, or tonsillar deviation. Airway patent. Nares without nasal blood, purulent drainage or septal hematoma. EARS: Bilateral pinnae and external canals appear within normal limits. Bilateral tympanic membranes without erythema, dullness or perforation. NECK: Trachea midline. No lymphadenopathy. CARDIOVASCULAR: Regular rate and rhythm. No murmur appreciated. RESPIRATORY: No accessory muscle use. Lungs with Wheezing throughout to auscultation. Breath sounds equal bilaterally. No retractions or tachypnea. No Audible wheezing noted. GASTROINTESTINAL: Abdomen soft, non-tender, nondistended. Hepatic and splenic margins not palpable. Bowel sounds are active 4 quadrants. MUSCULOSKELETAL: No obvious deformities. No clubbing. No cyanosis. No edema. NEUROLOGICAL: Awake and alert. Oriented 3. No obvious cranial nerve deficits. Motor grossly within normal limits. Normal speech. Moves all extremities. 5/5 strength to all extremities. PSYCHIATRIC: Appropriate mood and affect; insight and judgment normal. Data Data Last Documented VS Vital Signs Date Time Temp Pulse Resp B/P (MAP) Pulse Ox O2 Delivery O2 Flow Rate FiO2 01/21/18 15:54 98 20 120/68 (85) 99 Room Air 01/21/18 14:02 98.8 Orders Orders Prednisone (Deltasone) (01/21/18 15:30) Albuterol-Ipratropium Neb (Duoneb Neb) (01/21/18 15:30) Ed Discharge Order (01/21/18 16:08) [facility] Medical Decision Making Medical Screen Exam Complete: Yes Emergency Medical Condition: Yes Medical Record Reviewed: Yes Differential Diagnosis Bronchitis, pneumonia, bronchiolitis, COPD Narrative Course 37-year-old male with cough with worsening for the past few weeks. He was seen at [facility] on December 15 and treated with bronchitis. Patient states he never filled the inhaler and his symptoms really never improved. Wheezing throughout on auscultation of the lungs. No retractions or tachypnea. No acute distress. Oxygen saturation is 98% on room air. DuoNeb and Deltasone ordered. 1608: Reports improvement in symptoms after breathing treatment. Lungs are clear and equal throughout. Says he can take a deep breath without feeling short of breath. Ventolin inhaler, Deltasone, azithromycin, Tessalon Perles prescribed for home. Instructed patient to follow up with primary care provider. Patient verbalizes understanding and agreement with treatment plan. Patient is medically cleared and stable for discharge. Discussed reasons to return to the emergency department. Patient agrees with treatment plan. The patients vital signs are stable and the patient is stable for outpatient follow- up and treatment. Patient discharged home, stable and in no acute distress. Diagnosis Primary Impression: Bronchitis Referrals: [facility] Primary Care Physician Patient Instructions: Acute Bronchitis (ED), General Instructions Departure Forms: Tests/Procedures, Work Release Enter return to work date: Jan 22, 2018 Additional Instructions: Use Albuterol inhaler as prescribed Take oral steroids as prescribed and complete full course Use Tessalon Perles as prescribed to decrease coughing spasms [id number] decongestants or antihistamines as directed and as needed for symptom management Your cough can last 4-6 weeks Drink plenty of fluids to prevent dehydration Use hot air humidifier to decrease cough exacerbation Turn off ceiling fans and sleep with head of bed elevated Avoid triggers such as second hand smoke, dust, known allergens Follow-up with your primary care provider Return to the emergency department immediately with worsening of symptoms Med/Other Pt SpecificInfo: Prescription(s) given Scripts Benzonatate (Tessalon Perles) 100 Mg Cap 100 MG PO TID Y for COUGH for 3 Days, CAP 0 Refills Prov: Shanika JimenezP 01/21/18 Prednisone (Deltasone) 20 Mg Tab 40 MG PO DAILY for 4 Days, #8 TAB 0 Refills start 01/22/2018 Prov: Shanika JimenezP 01/21/18 Albuterol 18 GM Inh (Ventolin Hfa 18 GM Inh) 90 Mcg/Act Aer 2 PUFF INH Q4-6H Y for SOB/WHEEZING, #1 INHALER 0 Refills Prov: Shanika JimenezP 01/21/18 Azithromycin (Azithromycin) 500 Mg Tab 500 MG PO DAILY for Infection, #5 TAB 0 Refills Prov: Shanika Jimenez 01/21/18 Disposition: 01 DISCHARGE HOME Condition: Stable Shanika Jimenez Jan 21, 2018 15:23
[2018-01-21] MEDS ORDERED: predniSONE 20 MG TAB PO ONE (15:30)
[2018-01-21] MEDS ORDERED: RESP: ALBUTEROL 2.5 MG/IPRATROPIUM 0.5 MG NEB (SCH) INH ONE (15:30)
[2018-01-21 15:54] VITALS: BP 120/68; PULSE 98; RESP 20; O2SAT 99
== END 2018-01-21 16:16 | disposition home or self-care (01) ==
LOC: NEPK 13:51
DX: J40 Bronchitis, not specified as acute or chronic (principal); E10.9 Type 1 diabetes mellitus without complications; I10 Essential (primary) hypertension; F90.9 Attention-deficit hyperactivity disorder, unspecified type; F41.9 Anxiety disorder, unspecified; F32.9 Major depressive disorder, single episode, unspecified; G62.9 Polyneuropathy, unspecified; F17.200 Nicotine dependence, unspecified, uncomplicated; Z86.19 Personal history of other infectious and parasitic diseases
CPT/HCPCS: 99283; J7512

== ENCOUNTER 2018-01-24 21:39 | Emergency (ER) | payer SELFPAY ==
[~2018-01-24 21:39] MED LIST changes: -ALBUAER3 INH; -AZIT250T3 PO; +AZIT500T2 PO; +BENZ100 PO; -BLOOD GLUCOSE T1 TES; -FLUO20CA12 PO; -PERM5CRE TOPICAL; +PRED-503 PO; -PRED20 PO; -REME15TA PO; +VENTAER INH; -hydroxyzine PO
[2018-01-24 21:58] VITALS: BP 128/69; PULSE 99; RESP 16; TEMP 97.8; O2SAT 99
[2018-01-24] MEDS ORDERED: PROZ40CA PO (22:50)
[2018-01-24] MEDS ORDERED: VIST50CA PO (22:50)
--- NOTE | 2018-01-24 23:24 | PD ---
HPI Chief Complaint: Psychiatric Symptoms Time Seen by Provider: 22:49 Travel History International Travel<30 days: No Contact w/Intl Traveler<30days: No Traveled to known affect area: No History of Present Illness HPI 37 year white male presents to emergency department on a voluntary basis for psychological evaluation. The patient states that he has a history of depression and IV drug abuse. He has been off his antidepressant now for several months. He's been using IV Dilaudid and heroin again. He states that he is contemplating suicide. He's attempted drug overdose in the past. He does not have any current plan. He was seen in the ER a few days ago for upper respiratory tract infection. He states that he has not filled his prescriptions. He is not complaining of any fever or chills now. No cough, congestion, nausea, vomiting, diarrhea, urinary symptoms. He is an insulin- dependent diabetic. He is treated for hypertension, and neuropathy as well. He has appointment see Dr. Zhang his primary care doctor in the next week or 2. He has not followed up with [facility] where he had been treated for his depression and substance abuse in the past. No homicidal ideation. [facility] Past Medical History Narrative Medical Depression, IV drug abuse, diabetes, hypertension, diabetic neuropathy ADHD: Yes Arthritis: No Asthma: No Blood Disorders: No Anxiety: Yes Depression: Yes Heart Rhythm Problems: No Cancer: No Cardiovascular Problems: Yes (htn on meds) Chemotherapy: No Chest Pain: No Congestive Heart Failure: No COPD: No Diabetes: Yes (type 1) Patient Takes Glucophage: No Diminished Hearing: No Endocrine: Yes Gastrointestinal Disorders: No Genitourinary: No Headaches: Yes (per pt frequently ) Hepatitis: Yes (C) Hiatal Hernia: No Hypertension: No Immune Disorder: No Implanted Vascular Access Dvce: No Musculoskeletal: No Neurologic: Yes (NEUROPATHY LEGS/ FEET) Psychiatric: Yes ( Major depression chronic recurrent. History of Substance Abuse ) Reproductive: No Respiratory: No Immunizations Current: No Radiation Therapy: No Sleep Apnea: No Thyroid Disease: No Tetanus Vaccination: < 5 Years Past Surgical History Abdominal Surgery: No AICD: No Cardiac Surgery: No Ear Surgery: No Endocrine Surgery: Yes (diabetic) Eye Surgery: Yes (RETNIAL SX) Genitourinary Surgery: No Gynecologic Surgery: No Joint Replacement: No Neurologic Surgery: No Oral Surgery: No Pacemaker: No Thoracic Surgery: No Other Surgery: Yes Social History Alcohol Use: No Tobacco Use: Yes (1/2 PACK/DAY) Substance Use: Yes (HX OF HEROIN, AND POLYSUBSTANCE) Allergies-Medications (Allergen,Severity, Reaction): Coded Allergies: acetaminophen (Unverified Adverse Reaction, Mild, NAUSEA, 01/21/18) 05/30/16 DENIES ALLERGY Uncoded Allergies: NARCOTICS (Adverse Reaction, Unknown, 12/15/17) hx of opoid abuse, IVDU, avoid... Reported Meds & Prescriptions Reported Meds & Active Scripts Active Ventolin Hfa 18 GM Inh (Albuterol Sulfate) 90 Mcg/Act Aer 2 Puff INH Q4-6H PRN [NovoLog] Sliding scale as directed, see history from note June 07, 2017. Levemir Inj (Insulin Detemir) 1,000 unit/ 10 ML Vial 1 Units SQ DIRECTED 15 Days 18 units SQ qAM and 22 units SQ qHS. Gabapentin 800 Mg Tab 800 Mg PO QID One four times a day for neuropathy (painful lower extremities) Reported Vistaril (Hydroxyzine Pamoate) 50 Mg Cap 50 Mg PO TID Prozac (Fluoxetine HCl) 40 Mg Cap 40 Mg PO DAILY Lisinopril 10 Mg Tab 10 Mg PO DAILY Review of Systems General / Constitutional: No: Fever Eyes: No: Visual changes HENT: No: Headaches Cardiovascular: No: Chest Pain or Discomfort Respiratory: No: Shortness of Breath Gastrointestinal: No: Abdominal Pain Genitourinary: No: Dysuria Musculoskeletal: No: Pain Skin: No Rash Neurologic: No: Weakness Psychiatric: Positive: Depression, Suicidal Ideations, Mood Disorder, Substance Abuse, No: Anxiety, Disorder of Thought, Homicidal Ideation Endocrine: No: Polydipsia Hematologic/Lymphatic: No: Easy Bruising Physical Exam Narrative GENERAL: Well-nourished, well-developed patient. SKIN: Warm and dry. Patient has track hatch on his right arm. HEAD: Normocephalic and atraumatic. EYES: No scleral icterus. No injection or drainage. ENT: No nasal drainage noted. Mucous membranes pink. Airway patent. NECK: Supple, trachea midline. Moves head freely without obvious discomfort. CARDIOVASCULAR: Regular rate and rhythm without murmurs, gallops, or rubs. RESPIRATORY: Breath sounds equal bilaterally. No accessory muscle use. GASTROINTESTINAL: Abdomen soft, non-tender, nondistended. EXTREMITIES: No cyanosis or edema. BACK: Nontender without obvious deformity. No CVA tenderness. NEURO: Patient is alert and oriented. no sensorimotor deficits. Nonfocal. Normal speech. PSYCH: No delusions. No auditory or visual hallucinations. Data Data Last Documented VS Vital Signs Date Time Temp Pulse Resp B/P (MAP) Pulse Ox O2 Delivery O2 Flow Rate FiO2 01/24/18 21:58 97.8 99 16 128/69 (88) 99 Orders Orders Complete Blood Count With Diff (01/24/18 23:02) Comprehensive Metabolic Panel (01/24/18 23:02) Thyroid Stimulating Hormone (01/24/18 23:02) Psych Screen (01/24/18:) Drug Screen, Random Urine (01/24/18:02) Alcohol (Ethanol) (01/24/18 23:02) Salicylates (Aspirin) (01/24/18 23:02) Tylenol (Acetaminophen) (01/24/18 23:02) Labs Laboratory Tests Test 01/24/18 23:21 01/24/18 23:25 White Blood Count 9.8 TH/MM3 Red Blood Count 4.87 MIL/MM3 Hemoglobin 14.6 GM/DL Hematocrit 41.7 % Mean Corpuscular Volume 85.6 FL Mean Corpuscular Hemoglobin 30.1 PG Mean Corpuscular Hemoglobin Concent 35.1 % Red Cell Distribution Width 13.6 % Platelet Count 300 TH/MM3 Mean Platelet Volume 8.8 FL Neutrophils (%) (Auto) 54.1 % Lymphocytes (%) (Auto) 33.9 % Monocytes (%) (Auto) 8.5 % Eosinophils (%) (Auto) 2.4 % Basophils (%) (Auto) 1.1 % Neutrophils # (Auto) 5.3 TH/MM3 Lymphocytes # (Auto) 3.3 TH/MM3 Monocytes # (Auto) 0.8 TH/MM3 Eosinophils # (Auto) 0.2 TH/MM3 Basophils # (Auto) 0.1 TH/MM3 CBC Comment DIFF FINAL Differential Comment Blood Urea Nitrogen 25 MG/DL Creatinine 1.25 MG/DL Random Glucose 117 MG/DL Total Protein 8.8 GM/DL Albumin 4.2 GM/DL Calcium Level 9.6 MG/DL Alkaline Phosphatase 151 U/L Aspartate Amino Transf (AST/SGOT) 14 U/L Alanine Aminotransferase (ALT/SGPT) 27 U/L Total Bilirubin 0.4 MG/DL Sodium Level 139 MEQ/L Potassium Level 3.6 MEQ/L Chloride Level 102 MEQ/L Carbon Dioxide Level 26.6 MEQ/L Anion Gap 10 MEQ/L Estimat Glomerular Filtration Rate 66 ML/MIN Thyroid Stimulating Hormone 3rd Gen 1.180 uIU/ML Salicylates Level LESS THAN 1.7 MG/DL Acetaminophen Level LESS THAN 2.0 MCG/ML Ethyl Alcohol Level LESS THAN 3 MG/DL Urine Opiates Screen NEG Urine Barbiturates Screen NEG Urine Amphetamines Screen NEG Urine Benzodiazepines Screen NEG Urine Cocaine Screen NEG Urine Cannabinoids Screen POS MDM Medical Decision Making Medical Screen Exam Complete: Yes Emergency Medical Condition: Yes Medical Record Reviewed: Yes Interpretation(s) Laboratory Tests Test 01/24/18 23:21 01/24/18 23:25 White Blood Count 9.8 TH/MM3 Red Blood Count 4.87 MIL/MM3 Hemoglobin 14.6 GM/DL Hematocrit 41.7 % Mean Corpuscular Volume 85.6 FL Mean Corpuscular Hemoglobin 30.1 PG Mean Corpuscular Hemoglobin Concent 35.1 % Red Cell Distribution Width 13.6 % Platelet Count 300 TH/MM3 Mean Platelet Volume 8.8 FL Neutrophils (%) (Auto) 54.1 % Lymphocytes (%) (Auto) 33.9 % Monocytes (%) (Auto) 8.5 % Eosinophils (%) (Auto) 2.4 % Basophils (%) (Auto) 1.1 % Neutrophils # (Auto) 5.3 TH/MM3 Lymphocytes # (Auto) 3.3 TH/MM3 Monocytes # (Auto) 0.8 TH/MM3 Eosinophils # (Auto) 0.2 TH/MM3 Basophils # (Auto) 0.1 TH/MM3 CBC Comment DIFF FINAL Differential Comment Blood Urea Nitrogen 25 MG/DL Creatinine 1.25 MG/DL Random Glucose 117 MG/DL Total Protein 8.8 GM/DL Albumin 4.2 GM/DL Calcium Level 9.6 MG/DL Alkaline Phosphatase 151 U/L Aspartate Amino Transf (AST/SGOT) 14 U/L Alanine Aminotransferase (ALT/SGPT) 27 U/L Total Bilirubin 0.4 MG/DL Sodium Level 139 MEQ/L Potassium Level 3.6 MEQ/L Chloride Level 102 MEQ/L Carbon Dioxide Level 26.6 MEQ/L Anion Gap 10 MEQ/L Estimat Glomerular Filtration Rate 66 ML/MIN Thyroid Stimulating Hormone 3rd Gen 1.180 uIU/ML Salicylates Level LESS THAN 1.7 MG/DL Acetaminophen Level LESS THAN 2.0 MCG/ML Ethyl Alcohol Level LESS THAN 3 MG/DL Urine Opiates Screen NEG Urine Barbiturates Screen NEG Urine Amphetamines Screen NEG Urine Benzodiazepines Screen NEG Urine Cocaine Screen NEG Urine Cannabinoids Screen POS Differential Diagnosis MDM: High Differential diagnoses: Schizophrenia, schizoaffective disorder, bipolar, anxiety, depression, adjustment reaction, mood disorder NOS, ODD, depressive disorder NOS, dementia, dementia with agitation, psychosis NOS, substance induced mood disorder, DMDD, Asperger syndrome, infection,electrolyte abnormality, malingering. Narrative Course Mental health screening discussed with the patient. Psychiatric screen ordered. Patient is been medically cleared. This is medical clearance for psychiatric admission, IV drug abuse, diabetes mellitus Diagnosis Primary Impression: Medical clearance for psychiatric admission Additional Impressions: IV drug abuse diabetes mellitus Condition: Stable Guillermo eLon Jan 24, 2018 23:24
[2018-01-24 23:43] LABS: HEMATOCRIT 41.7 % (39.0-51.0); HEMOGLOBIN 14.6 GM/DL (13.0-17.0); MEAN CELL VOLUME 85.6 FL (80.0-100.0); MEAN CORPUSCULAR HEMOGLOBIN 30.1 PG (27.0-34.0); MEAN CORPUSCULAR HGB CONC 35.1 % (32.0-36.0); MEAN PLATELET VOLUME 8.8 FL (7.0-11.0); NEUT % 54.1 % (16.0-70.0); PLATELET COUNT 300 TH/MM3 (150-450); RED BLOOD COUNT 4.87 MIL/MM3 (4.50-5.90); RED CELL DISTRIBUTION WIDTH 13.6 % (11.6-17.2); WHITE BLOOD COUNT 9.8 TH/MM3 (4.0-11.0)
[2018-01-24 23:44] LABS: AUTOMATED NEUTROPHIL # 5.3 TH/MM3 (1.8-7.7); BASOPHIL # 0.1 TH/MM3 (0-0.2); BASOPHIL % 1.1 % (0.0-2.0); EOSINOPHIL # 0.2 TH/MM3 (0-0.4); EOSINOPHIL % 2.4 % (0.0-4.0); LYMPH % 33.9 % (9.0-44.0); LYMPHOCYTE # 3.3 TH/MM3 (1.0-4.8); MONO % 8.5 % (0.0-8.0); MONOCYTE # 0.8 TH/MM3 (0-0.9)
[2018-01-24 23:53] LABS: ALBUMIN 4.2 GM/DL (3.4-5.0); AST (GOT) 14 U/L (15-37); BICARBONATE 26.6 MEQ/L (21.0-32.0); BLOOD UREA NITROGEN 25 MG/DL (7-18); CALCIUM 9.6 MG/DL (8.5-10.1); CHLORIDE 102 MEQ/L (98-107); CREATININE 1.25 MG/DL (0.60-1.30); GLOMERULAR FILTRATION RATE 66 ML/MIN (>89); GLUCOSE,RANDOM 117 MG/DL (74-106); SODIUM (NA) 139 MEQ/L (136-145)
[2018-01-24 23:54] LABS: ALT (GPT) 27 U/L (12-78)
[2018-01-25 00:04] LABS: ALKALINE PHOSPHATASE 151 U/L (45-117); TOTAL BILIRUBIN ADULT 0.4 MG/DL (0.2-1.0); TOTAL PROTEIN 8.8 GM/DL (6.4-8.2)
[2018-01-25 00:09] LABS: ACETAMINOPHEN LESS THAN 2.0 MCG/ML (10.0-30.0)
[2018-01-25 09:17] VITALS: BP 137/82; PULSE 93; RESP 16; TEMP 98.8; O2SAT 98
[2018-01-25] MEDS ORDERED: DEXTROSE 50% IN WATER 50 ML VIAL(D50) IV PUSH PRN (12:15)
[2018-01-25] MEDS ORDERED: GLUCAGON 1 MG/ML VIAL OTHER PRN (12:15)
--- NOTE | 2018-01-25 12:15 | PD ---
History of Present Illness Chief Complaint: Psychiatric Symptoms Time Seen by Provider: 11:58 Travel History International Travel<30 Days: No Contact w/Intl Traveler<30days: No Known affected area: No Legal Status Legal Status: Voluntary History of Present Illness: 37 year old male who presents on a voluntary basis for detox. He states that he is using IV Heroin after being clean for approximately one year. He is currently on probation following a charge of stolen property and completed drug court 3 months ago. He is a IDDM and is followed by Dr. Zhang. His blood sugar is 415 and he states that he manages his own diabetes with Novolog and Levemir. He is also under psychiatric care for depression and is currently taking , Prozac 60 mg daily, Gabapentin 800mg and Vistaril 50 mg tid. He feels that his current medication address his anxiety and depression. He has been under care for his depression since age 16. Patient is single, no children and currently employed at [employer]. He states that he has suicidal ideations with a vague plan. He is preoccupied with obtaining a bed at [facility] to detox. He is under the impression that he will obtain a bed expeditiously if he is seen in the Emergency Department. Patient does not meet admission criteria and we are not a designated detox facility. Patient currently has the means to address his elevated blood sugar and has ample psychiatric medications for his depression. He is alert and oriented and articulate. Will discharge and provide him with information to follow up with [facility] to request admission into detox. Dx: Mood Disorder, Substance Induced Heroin Use, Recurrent PFSH Past Medical History ADHD: Yes Arthritis: No Asthma: No Blood Disorders: No Anxiety: Yes Depression: Yes Heart Rhythm Problems: No Cancer: No Cardiovascular Problems: Yes (htn on meds) Chemotherapy: No Chest Pain: No Congestive Heart Failure: No COPD: No Diabetes: Yes (type 1) Patient Takes Glucophage: No Diminished Hearing: No Endocrine: Yes Gastrointestinal Disorders: No Genitourinary: No Headaches: Yes (per pt frequently ) Hepatitis: Yes (C) Hiatal Hernia: No Hypertension: No Immune Disorder: No Implanted Vascular Access Dvce: No Musculoskeletal: No Neurologic: Yes (NEUROPATHY LEGS/ FEET) Psychiatric: Yes ( Major depression chronic recurrent. History of Substance Abuse ) Reproductive: No Respiratory: No Immunizations Current: No Radiation Therapy: No Sleep Apnea: No Thyroid Disease: No Tetanus Vaccination: < 5 Years Past Surgical History Abdominal Surgery: No AICD: No Cardiac Surgery: No Ear Surgery: No Endocrine Surgery: Yes (diabetic) Eye Surgery: Yes (RETNIAL SX) Genitourinary Surgery: No Gynecologic Surgery: No Joint Replacement: No Neurologic Surgery: No Oral Surgery: No Pacemaker: No Thoracic Surgery: No Other Surgery: Yes Psychiatric History Psychiatric History Hx Psychiatric Treatment: Patient with hx of depression and anxiety. Past [facility] admission Dec 2016 for mood d/o NOS. History of Inpatient Treatment: Yes Social History Hx Alcohol Use: No Hx Tobacco Use: Yes (1/2 PACK/DAY) Hx Substance Use: Yes (HX OF HEROIN, AND POLYSUBSTANCE) Substance Use Type: Nicotine/Cigarettes, Benzos (Valium,Xanax), Heroin Other Substances Used: IVDU Hx of Substance Use Treatment: Yes Allergies-Medications (Allergen,Severity, Reaction): Coded Allergies: acetaminophen (Unverified Adverse Reaction, Mild, NAUSEA, 01/21/18) 05/30/16 DENIES ALLERGY Uncoded Allergies: NARCOTICS (Adverse Reaction, Unknown, 12/15/17) hx of opoid abuse, IVDU, avoid... Reported Meds & Prescriptions Reported Meds & Active Scripts Active Ventolin Hfa 18 GM Inh (Albuterol Sulfate) 90 Mcg/Act Aer 2 Puff INH Q4-6H PRN [NovoLog] Sliding scale as directed, see history from note June 07, 2017. Levemir Inj (Insulin Detemir) 1,000 unit/ 10 ML Vial 1 Units SQ DIRECTED 15 Days 18 units SQ qAM and 22 units SQ qHS. Gabapentin 800 Mg Tab 800 Mg PO QID One four times a day for neuropathy (painful lower extremities) Reported Vistaril (Hydroxyzine Pamoate) 50 Mg Cap 50 Mg PO TID Prozac (Fluoxetine HCl) 40 Mg Cap 40 Mg PO DAILY Lisinopril 10 Mg Tab 10 Mg PO DAILY Mental Status Examination Appearance: Appropriate Consciousness: Alert Orientation: x4 Motor Activity: Normal gait Speech: Unremarkable Language: Adequate Fund of Knowledge: Adequate Attention and Concentration: Adequate Memory: Unremarkable Mood: Appropriate Affect: Appropriate Thought Process & Associations: Intact Thought Content: Appropriate Hallucination Type: None Delusion Type: None Suicidal Ideation: No Suicidal Plan: No Suicidal Intention: No Homicidal Ideation: No Homicidal Plan: No Homicidal Intention: No Insight: Adequate Judgment: Adequate MDM Medical Decision Making Assessment/Plan Patient is voluntary and seeking treatment for detox from IV Heroin. He is familiar with [facility] and is under the impression that coming through the Emergency Room will expedite his admission to [facility]. He is currently under the care of Dr. Zhang for his diabetes and has been under treatment since age 16 for his depression. This patient does not meet admission criteria. He denies a suicidal plan and is preoccupied with obtaining a detox admission. Will discharge today and provide information regarding [facility] so that the patient may request detox management. Dx: Mood Disorder, Substance Induced Heroin Use Orders Orders Complete Blood Count With Diff (01/24/18 23:02) Comprehensive Metabolic Panel (01/24/18 23:02) Thyroid Stimulating Hormone (01/24/18 23:02) Psych Screen (01/24/18 23:02) Drug Screen, Random Urine (01/24/18 23:02) Alcohol (Ethanol) (01/24/18 23:02) Salicylates (Aspirin) (01/24/18 23:02) Tylenol (Acetaminophen) (01/24/18 23:02) Diet Regular Basic (01/25/18 Breakfast) Diet Regular Basic (01/25/18 Lunch) Results Vital Signs Date Time Temp Pulse Resp B/P (MAP) Pulse Ox O2 Delivery O2 Flow Rate FiO2 01/25/18 09:17 98.8 93 16 137/82 (100) 98 Room Air 01/24/18 21:58 97.8 99 16 128/69 (88) 99 Laboratory Tests Test 01/24/18 23:21 01/24/18 23:25 White Blood Count 9.8 Red Blood Count 4.87 Hemoglobin 14.6 Hematocrit 41.7 Mean Corpuscular Volume 85.6 Mean Corpuscular Hemoglobin 30.1 Mean Corpuscular Hemoglobin Concent 35.1 Red Cell Distribution Width 13.6 Platelet Count 300 Mean Platelet Volume 8.8 Neutrophils (%) (Auto) 54.1 Lymphocytes (%) (Auto) 33.9 Monocytes (%) (Auto) 8.5 Eosinophils (%) (Auto) 2.4 Basophils (%) (Auto) 1.1 Neutrophils # (Auto) 5.3 Lymphocytes # (Auto) 3.3 Monocytes # (Auto) 0.8 Eosinophils # (Auto) 0.2 Basophils # (Auto) 0.1 CBC Comment DIFF FINAL Differential Comment Blood Urea Nitrogen 25 Creatinine 1.25 Random Glucose 117 Total Protein 8.8 Albumin 4.2 Calcium Level 9.6 Alkaline Phosphatase 151 Aspartate Amino Transf (AST/SGOT) 14 Alanine Aminotransferase (ALT/SGPT) 27 Total Bilirubin 0.4 Sodium Level 139 Potassium Level 3.6 Chloride Level 102 Carbon Dioxide Level 26.6 Anion Gap 10 Estimat Glomerular Filtration Rate 66 Thyroid Stimulating Hormone 3rd Gen 1.180 Salicylates Level LESS THAN 1.7 Acetaminophen Level LESS THAN 2.0 Ethyl Alcohol Level LESS THAN 3 Urine Opiates Screen NEG Urine Barbiturates Screen NEG Urine Amphetamines Screen NEG Urine Benzodiazepines Screen NEG Urine Cocaine Screen NEG Urine Cannabinoids Screen POS Diagnosis Primary Impression: Medical clearance for psychiatric admission Additional Impressions: IV drug abuse diabetes mellitus Condition: Stable Problem Qualifiers Nancy Nelson Jan 25, 2018 12:15
--- NOTE | 2018-01-25 12:36 | PD ---
Data Data Last Documented VS Vital Signs Date Time Temp Pulse Resp B/P (MAP) Pulse Ox O2 Delivery O2 Flow Rate FiO2 01/25/18 09:17 98.8 93 16 137/82 (100) 98 Room Air Orders Orders Complete Blood Count With Diff (01/24/18 23:02) Comprehensive Metabolic Panel (01/24/18 23:02) Thyroid Stimulating Hormone (01/24/18 23:02) Psych Screen (01/24/18 23:02) Drug Screen, Random Urine (01/24/18 23:02) Alcohol (Ethanol) (01/24/18 23:02) Salicylates (Aspirin) (01/24/18 23:02) Tylenol (Acetaminophen) (01/24/18 23:02) Diet Regular Basic (01/25/18 Breakfast) Diet Regular Basic (01/25/18 Lunch) Blood Glucose Goal (Criteria) (01/25/18 12:09) Hypoglycemia 70 Mg/Dl Or < (01/25/18 12:09) Notify Dr: Other (01/25/18 12:09) Dextrose 50% In Jack (Vial) Inj (D50w (Vi (01/25/18 12:15) Glucagon Inj (Glucagon Inj) (01/25/18 12:15) Insulin Aspart Supplemtl Scale (Novolog (01/25/18 17:00) Ed Discharge Order (01/25/18 12:35) Labs Laboratory Tests Test 01/24/18 23:21 01/24/18 23:25 White Blood Count 9.8 TH/MM3 Red Blood Count 4.87 MIL/MM3 Hemoglobin 14.6 GM/DL Hematocrit 41.7 % Mean Corpuscular Volume 85.6 FL Mean Corpuscular Hemoglobin 30.1 PG Mean Corpuscular Hemoglobin Concent 35.1 % Red Cell Distribution Width 13.6 % Platelet Count 300 TH/MM3 Mean Platelet Volume 8.8 FL Neutrophils (%) (Auto) 54.1 % Lymphocytes (%) (Auto) 33.9 % Monocytes (%) (Auto) 8.5 % Eosinophils (%) (Auto) 2.4 % Basophils (%) (Auto) 1.1 % Neutrophils # (Auto) 5.3 TH/MM3 Lymphocytes # (Auto) 3.3 TH/MM3 Monocytes # (Auto) 0.8 TH/MM3 Eosinophils # (Auto) 0.2 TH/MM3 Basophils # (Auto) 0.1 TH/MM3 CBC Comment DIFF FINAL Differential Comment Blood Urea Nitrogen 25 MG/DL Creatinine 1.25 MG/DL Random Glucose 117 MG/DL Total Protein 8.8 GM/DL Albumin 4.2 GM/DL Calcium Level 9.6 MG/DL Alkaline Phosphatase 151 U/L Aspartate Amino Transf (AST/SGOT) 14 U/L Alanine Aminotransferase (ALT/SGPT) 27 U/L Total Bilirubin 0.4 MG/DL Sodium Level 139 MEQ/L Potassium Level 3.6 MEQ/L Chloride Level 102 MEQ/L Carbon Dioxide Level 26.6 MEQ/L Anion Gap 10 MEQ/L Estimat Glomerular Filtration Rate 66 ML/MIN Thyroid Stimulating Hormone 3rd Gen 1.180 uIU/ML Salicylates Level LESS THAN 1.7 MG/DL Acetaminophen Level LESS THAN 2.0 MCG/ML Ethyl Alcohol Level LESS THAN 3 MG/DL Urine Opiates Screen NEG Urine Barbiturates Screen NEG Urine Amphetamines Screen NEG Urine Benzodiazepines Screen NEG Urine Cocaine Screen NEG Urine Cannabinoids Screen POS MDM Medical Record Reviewed: Yes Supervised Visit with MIRIAN: No Narrative Course Please see previous providers notes. This patient has been cleared by psychiatry. His most recent blood sugar level was noted to be in the 400s and therefore insulin sliding scale was ordered for him during his ED stay. He appears well, no evidence of DKA. He has no medical issues that would warrant further hospitalization. Diagnosis Primary Impression: Medical clearance for psychiatric admission Additional Impressions: IV drug abuse diabetes mellitus Med/Other Pt SpecificInfo: No Change to Meds Disposition: 01 DISCHARGE HOME Condition: Stable Isaiah Graham Jan 25, 2018 12:36
[2018-01-25] MEDS ORDERED: INSULIN ASPART SUPPLEMENTAL SCALE SQ SCH (17:00)
== END 2018-01-25 13:32 | disposition home or self-care (01) ==
LOC: NEPD 21:39 → NEPJ 01-25 13:32
DX: F19.94 Other psychoactive substance use, unspecified with psychoactive substance-induced mood disorder (principal); F11.10 Opioid abuse, uncomplicated; R45.851 Suicidal ideations; E11.65 Type 2 diabetes mellitus with hyperglycemia; B19.20 Unspecified viral hepatitis C without hepatic coma; E11.40 Type 2 diabetes mellitus with diabetic neuropathy, unspecified; I10 Essential (primary) hypertension; Z79.4 Long term (current) use of insulin; Z87.891 Personal history of nicotine dependence; Z79.899 Other long term (current) drug therapy
CPT/HCPCS: 80053; 80307; 84443; 85025; 99283

== ENCOUNTER 2018-08-19 18:58 | Inpatient (IN) ==
--- NOTE | 2018-08-19 20:50 | ED ---
HPI General Chief Complaint: Extremity Injury, Lower Stated Complaint: Left ankle injury Time Seen by Provider: 08/19/18 20:45 Source: patient Mode of arrival: ambulatory Limitations: no limitations History of Present Illness HPI Narrative: 37-year-old male complains of left foot left ankle pain. Patient has history of diabetes. Patient states that he had a hypoglycemic episode last night and fell and injured his left foot and left ankle. Patient denies any headache. Patient denies any visual change. Patient denies any neck pain. Patient denies any chest pain or shortness of breath. Patient denies abdominal pain. Patient states that the pain is sharp pain localized to left foot and left ankle. Patient denies any pain radiation. Patient states that the pain is worse with weightbearing. MD complaint: Reports ankle injury and foot injury Onset (ago): hour(s) Injury: Left: ankle and foot Type of Injury: Reports unknown Place: Reports home Severity: moderate Severity scale (1-10): 8 Relieving factors: nothing Exacerbating factors: weight bearing Context: Reports fall Associated symptoms: Reports swelling and able to partially bear weight Other symptoms: Reports none Treatments prior to arrival: Reports cold therapy Related Data Home Medications Medication Instructions Recorded Confirmed fluoxetine [Prozac] 60 mg PO DAILY 08/19/18 08/19/18 gabapentin 800 mg PO QID 08/19/18 08/19/18 insulin aspart U-100 [Novolog 1 sliding scale dose SUBCUT UD 08/19/18 08/19/18 U-100 Insulin aspart] insulin detemir U-100 [Levemir 20 unit SUBCUT BID 08/19/18 08/19/18 U-100 Insulin] Allergies Allergy/AdvReac Type Severity Reaction Status Date / Time No Known Allergies Allergy Verified 08/19/18 19:07 Review of Systems ROS: all other systems reviewed are negative COUNT INCLUDES [facility] Medical History Medical History Anxiety (Acute) Depression (Acute) Diabetes (Acute) PTSD (post-traumatic stress disorder) (Acute) Sepsis (Acute) Surgical History Surgical History History of hip surgery (Acute) Hx of eye surgery (Acute) Social History Social History Substance History: No History of Abuse Second Hand Smoke Exposure: Yes Smoking Status: Current every day smoker Tobacco Type: Cigarettes How Often Do You Have a Drink Containing Alcohol: Never Recent Travel in [place] within the Last 8 Weeks: No Recent Out of Country Travel within the Last 8 Weeks: No Immunization History Tetanus Immunization: Never Vaccinated Exam Narrative Exam Narrative: GENERAL: Well-nourished, well-developed patient. SKIN: Focused skin assessment warm/dry. HEAD: Normocephalic. EYES: No scleral icterus. No injection or drainage. NECK: Supple, trachea midline. No JVD or lymphadenopathy. CARDIOVASCULAR: Regular rate and rhythm without murmurs, gallops, or rubs. RESPIRATORY: Breath sounds equal bilaterally. No accessory muscle use. GASTROINTESTINAL: Abdomen soft, non-tender, nondistended. MUSCULOSKELETAL: Patient has ecchymosis soft tissue swelling tenderness diffuse over the left ankle and dorsum aspect the left foot. Full range of motion of the toes. BACK: Nontender without obvious deformity. No CVA tenderness. Course Initial Documented Vital Signs Temperature 99.0 F 08/19/18 19:03 Pulse Rate 111 H 08/19/18 19:03 Respiratory Rate 16 08/19/18 19:03 Blood Pressure 140/72 08/19/18 19:03 Pulse Oximetry 96 08/19/18 19:03 Last Documented Vital Signs Temperature 99.0 F 08/19/18 19:03 Pulse Rate 111 H 08/19/18 19:03 Respiratory Rate 16 08/19/18 19:03 Blood Pressure 140/72 08/19/18 19:03 Pulse Oximetry 96 08/19/18 19:03 Medical Decision Making MDM Narrative Medical decision making narrative: 37-year-old male with left ankle left foot injuries last night. Faye splint applied. Patient will be admitted and transferred to the main hospital for orthopedist evaluation and treatment. Pending surgery in a.m. N.p.o. after midnight. Normal saline solution 125 cc an hour. Medical Screen Exam Complete: Yes Emergency Medical Condition: Yes Differential Diagnosis Differential Diagnosis: Differential diagnosis including sprain, fracture, dislocation. Imaging Data Attestation: I personally reviewed and interpreted this imaging study as follows : Radiologist's impression: Ankle X-Ray 08/19/18 20:45 CONCLUSION: Fractured medial malleolus with 4 mm of medial displacement. Tiny avulsion type fracture fragments distally of the anterior talofibular ligament. The fibula is intact. Foot X-Ray 08/19/18 20:45 CONCLUSION: Medial malleolus fracture distal tibia. Discharge Plan Discharge Disposition Patient Disposition: 30 Still Patient Discharge Details Diagnosis: Fracture of ankle, left, closed Physicians Team ED Provider: Artem Bailey Primary Care Provider: Chris Zhang Rxs /Orders / Referrals /Forms Prescriptions: No Action fluoxetine [Prozac] 40 mg Capsule 60 mg PO DAILY RF: 0 gabapentin 800 mg Tablet 800 mg PO QID RF: 0 insulin aspart U-100 [Novolog U-100 Insulin aspart] 100 unit/mL Solution 1 sliding scale dose SUBCUT UD RF: 0 insulin detemir U-100 [Levemir U-100 Insulin] 100 unit/mL Solution 20 unit SUBCUT BID RF: 0 Status ED Status: With Doctor
--- NOTE | 2018-08-19 21:23 | XR ---
EXAM DATE: 08/19/2018 9:17 PM EST AGE/SEX: 37 years / Male INDICATIONS: Syncopal episode due to low blood sugar caused fall. Pain and bruising status post fall . CLINICAL DATA: This is the patient's initial encounter. Patient reports that signs and symptoms have been present for 1 day and indicates a pain score of 6/10. MEDICAL/SURGICAL HISTORY: Diabetes. None. COMPARISON: [facility], ANKLE COMPLETE LEFT MIN 3V, 08/19/2018. . FINDINGS: Bone density normal. Soft tissues are unremarkable. There is a mildly displaced fracture of the media l malleolus. Space widths are intact. CONCLUSION: Medial malleolus fracture distal tibia. Electronically signed by: Paul Crow MD 08/19/2018 9:21 PM EST
--- NOTE | 2018-08-19 21:23 | XR ---
EXAM DATE: 08/19/2018 9:17 PM EST AGE/SEX: 37 years / Male INDICATIONS: Patient had syncopal episode due to low blood sugar and fell. Pain and bruising to left ankle status post fall. CLINICAL DATA: This is the patient's initial encounter. Patient reports that signs and symptoms have been present for 2 days and indicates a pain score of 8/10. MEDICAL/SURGICAL HISTORY: Diabetes. None. COMPARISON: [facility], FOOT COMPLETE LEFT 3V, 08/19/2018. . FINDINGS: The medial malleolus is fractured and displaced medially approximately 4 mm. The rest of the tibiotal ar joint is normally aligned. Tiny avulsion type fracture fragments are seen laterally of the talus. Distal fibula intact. There is both medial and lateral soft tissue swelling. CONCLUSION: Fractured medial malleolus with 4 mm of medial displacement. Tiny avulsion type fracture fragments distally of the anterior talofibular ligament. The fibula is in tact. Electronically signed by: Richi Garcia MD 08/19/2018 9:22 PM EST
[2018-08-19 22:23] LABS: Baso # (Auto) 0.2 th/mm3 (0.0-0.2); Baso % (Auto) 2.7 % (0.0-2.0); Eos # (Auto) 0.5 th/mm3 (0.0-0.4); Eos % (Auto) 5.4 % (0.0-4.0); Hemoglobin 13.7 gm/dL (13.0-17.0); Lymph # (Auto) 2.5 th/mm3 (1.0-4.8); Lymph % (Auto) 28.9 % (9.0-44.0); Mean Corpuscular HGB Conc 33.4 % (32.0-36.0); Mean Corpuscular Hemoglobin 29.3 pg (27.0-34.0); Mean Corpuscular Volume 87.6 fL (80.0-100.0); Mean Platelet Volume 8.4 fL (7.0-11.0); Mono % (Auto) 10.9 % (0.0-8.0); Neut # (Auto) 4.6 th/mm3 (1.8-7.7); Neut % (Auto) 52.1 % (16.0-70.0); Platelet Count 229 th/mm3 (150-450); Red Blood Count 4.69 mil/mm3 (4.50-5.90); Red Cell Distribution Width 12.1 % (11.6-17.2); White Blood Count 8.8 th/mm3 (4.0-11.0)
[2018-08-19 22:31] LABS: Chloride 103 meq/L (98-107); Potassium 4.9 meq/L (3.5-5.1); Sodium 139 meq/L (136-145)
[2018-08-19 22:34] LABS: Calcium 8.7 mg/dL (8.5-10.1)
[2018-08-19 22:35] LABS: Albumin 3.7 g/dL (3.4-5.0); Anion Gap 5 meq/L (5-15); Blood Urea Nitrogen 30 mg/dL (7-18); Carbon Dioxide 31.1 meq/L (21.0-32.0); Glucose,Random 94 mg/dL (74-106)
[2018-08-19] MEDS: Sod Chloride 0.9% Inj 1,000 ML IV.CONT SCH (22:35)
--- NOTE | 2018-08-19 22:36 | XR ---
EXAM DATE: 08/19/2018 10:33 PM EST AGE/SEX: 37 years / Male INDICATIONS: Evaluate for pneumonia, pneumothorax, or communicable diseases. CLINICAL DATA: This is the patient's initial encounter. Patient reports that signs and symptoms have been present for 1 day and indicates a pain score of 0/10. MEDICAL/SURGICAL HISTORY: Diabetes mellitus type I. None. COMPARISON: [facility], CHEST PA & LAT, 12/15/2017. . FINDINGS: No infiltrate, effusion or pneumothorax demonstrated. Mild scarring of the left base is again noted. Heart size stable, within normal limits. No evidence of lymphadenopathy. CONCLUSION: No evidence of acute cardiopulmonary disease. Mild stable scarring of the left base. Electronically signed by: Richi Garcia MD 08/19/2018 10:34 PM EST
[2018-08-19 22:38] LABS: Alanine Aminotransferase 32 U/L (12-78); Aspartate Aminotransferase 38 U/L (15-37); Glomerular Filtration Rate 58 mL/min (>89)
[2018-08-19 22:40] LABS: Total Protein 7.8 g/dL (6.4-8.2)
[2018-08-19 22:41] LABS: Alkaline Phosphatase 145 U/L (45-117)
[2018-08-19] MEDS ORDERED: Morphine Inj 4 MG/ML Vial IV.PUSH ONE (23:41)
--- NOTE | 2018-08-19 23:42 | CT ---
EXAM DATE: 08/19/2018 10:53 PM EST AGE/SEX: 37 years / Male INDICATIONS: Fall. Fracture. CLINICAL DATA: This is the patient's initial encounter. Patient reports that signs and symptoms have been present for 1 day and indicates a pain score of 5/10. MEDICAL/SURGICAL HISTORY: Diabetes. None. RADIATION DOSE: 6.04 CTDI (mGy) COMPARISON: [facility], ANKLE COMPLETE LEFT MIN 3V, 08/19/2018. . TECHNIQUE: Multiple contiguous axial images were acquired using a multirow detector CT scanner witho ut contrast. Multiplanar reconstruction was performed in the sagittal and coronal planes. Using aut omated exposure control and adjustment of the mA and/or kV according to patient size, radiation dose was kept as low as reasonably achievable to obtain optimal diagnostic quality images. DICOM format i mage data is available electronically for review and comparison. FINDINGS: Examination reveals a mildly displaced fracture the medial malleolus from the remainder of the distal tibial epiphysis. There is slight fragmentation at the tip of the fibula and adjacent to the lateral talus, these likely avulsion injuries. Similar small crescentic fragment along the teodora lateral corner of the talus which is presumably avulsion injury. The ankle mortise remains otherwise aligned. No other hindfoot injuries are appreciated. There is moderate diffuse soft tissue edema. CONCLUSION: Ankle fractures as above Electronically signed by: Richi Babin MD 08/19/2018 11:41 PM EST
[2018-08-20 00:03] LABS: Bilirubin,Urine Negative (Negative); Clarity,Urine Clear (Clear); Color,Urine Yellow (Yellw/Straw); Glucose,Urine (UA) Negative (Negative); Leukocyte Esterase,Urine Negative (Negative); Nitrite,Urine Negative (Negative); PH,Urine 6.5 (5.0-8.5); Specific Gravity,Urine 1.025 (1.002-1.035); Urobilinogen,Urine 0.2 mg/dL (Less than 2)
[2018-08-20 00:09] LABS: RBC,Urine 0-3 /hpf (0-3); Squamous Epithelial Cell,Urine 0-5 /hpf (0-5); WBC,Urine 0-5 /hpf (0-5)
[2018-08-20] MEDS ORDERED: Bisacodyl 10 MG Supp RECTAL PRN (04:06)
[2018-08-20] MEDS ORDERED: Dextrose 50% in Water 50 ML Vial IV.PUSH PRN (04:06)
[2018-08-20] MEDS ORDERED: Naloxone Inj 0.4 MG/ML Vial IV.PUSH PRN (04:06)
[2018-08-20] MEDS ORDERED: Acetaminophen 325 MG Tablet PO PRN (04:06)
[2018-08-20] MEDS ORDERED: Morphine Sulfate Inj 2 MG/ML Vial IV.PUSH PRN (04:06)
[2018-08-20] MEDS: Morphine Inj 4 MG/ML Vial IV.PUSH PRN ×3 (04:34→08:20)
[2018-08-20] MEDS ORDERED: Sodium Chloride 0.9% 2 ML Flush PRN IV.FLUSH (04:39)
[2018-08-20] MEDS: Gabapentin 400 MG Capsule PO SCH ×3 (04:42→20:34)
--- NOTE | 2018-08-20 04:44 | P.HPFP ---
History of Present Illness Primary Care Physician: Chris Zhang MD Chief Complaint: L ankle injury History of Present Illness: 37-year-old male with past medical history of insulin-dependent type 1 diabetes , hypertension and depression presented to the emergency room with left foot/ ankle pain. Patient has been in his normal state of health until the day of admission when he states he had a hypoglycemic episode and fell. Patient states that he had been feeling well and is unsure of why he became hypoglycemic. He states that he did not lose consciousness and only injured his left ankle in the fall. Denied any head trauma, chest pain or shortness of breath, any other musculoskeletal injury/pain. Patient reported to the emergency room hours after the fall. He denies any numbness or tingling in the left foot or inability to move his toes. Patient's PCP is Dr. Zhang - Diagnosis (1) Fracture of ankle, left, closed (2) Diabetes (3) WOOD (acute kidney injury) (4) Hypertension (5) Depression (6) Nutrition, metabolism, and development symptoms Inpatient Certification: I certify that the inpatient services were ordered in accordance with Medicare regulations governing the order. This includes certification that hospital inpatient services are reasonable and necessary and in the case of services not specified as inpatient-only under 42 CFR 419.22(n), that they are appropriately provided as inpatient services in accordance to with the 2-midnight benchmark under 43 CFR 412.3(e) Estimated Total Length of Stay (Days): 2 Plans for Post Hospital Care: Home Review of Systems Constitutional: Denies chills, Denies fever(s) Eyes: Denies change in vision, Denies double vision Ears, Nose, Mouth, and Throat: Denies post nasal drip, Denies sore throat Cardiovascular: Denies chest pain, Denies shortness of breath Respiratory: Denies cough, Denies wheezing Gastrointestinal: Denies abdominal pain, Denies black, tarry stools, Denies nausea, Denies vomiting Genitourinary: Denies difficulty urinating, Denies urinary frequency Musculoskeletal: Reports joint pain, Denies numbness, Denies tingling PMFSH - History History Provided By: Patient - Medical History Medical History: Medical History (Last Updated 08/20/18 @ 04:23 by Luigi Brooke MD, R2) Depression (Acute) Diabetes (Acute) Anxiety Hypertension - Surgical History Surgical History: Surgical History (Last Reviewed 08/20/18 @ 04:23 by Luigi Brooke MD, R2) History of hip surgery Hx of eye surgery - Family History Family History: Family History (Last Updated 08/20/18 @ 04:23 by Luigi Brooke MD, R2) Grandparent Family history of diabetes mellitus - Tobacco History Second Hand Smoke Exposure: Yes Tobacco Use In Past 30 Days: Yes Smoking Status: Current every day smoker Tobacco Type: Cigarettes - Alcohol History How Often Do You Have a Drink Containing Alcohol: Never - Substance Use History Substance History: No History of Abuse - Travel History Recent Travel in the [place] Within the Last 8 Weeks: No Recent Travel Out of the Country Within the Last 8 Weeks: No - Immunization History Tetanus Immunization: Never Vaccinated Medications and Allergies Active Medications: Active Medications Acetaminophen (Tylenol) 650 mg PO Q6HR PRN PRN Reason: PAIN SCALE 1 TO 2 Al Hydroxide/Mg Hydroxide (Milk Of Magnesia Liq) 30 ml PO Q12H PRN PRN Reason: Mild Constipation Bisacodyl (Dulcolax Supp) 10 mg RECTAL DAILY PRN PRN Reason: SEVERE CONSITIPATION Dextrose (D50w Vial) 50 ml IV.PUSH UNSCH PRN PRN Reason: PER HYPOGLYCEMIA PROTOCOL Glucagon (Glucagon Inj) 1 mg OTHER PRN PRN PRN Reason: for Hypoglycemia Protocol Sodium Chloride (Ns Inj) 1,000 mls @ 125 mls/hr IV.CONT .Q8H EMI Last Infusion: 08/20/18 01:00 Dose: 125 mls/hr Insulin Aspart (Novolog Insulin Correctional Sugar Inj) 0 unit SQ ACHS EMI; Protocol Lactulose (Lactulose Liq) 30 ml PO DAILY PRN PRN Reason: SEVERE CONSITIPATION Morphine Sulfate (Morphine Inj) 2 mg IV.PUSH Q3H PRN PRN Reason: PAIN 3-5; IF UABLE TO TAKE PO Morphine Sulfate (Morphine Inj) 4 mg IV.PUSH Q3H PRN PRN Reason: PAIN 6-10;IF UNABLE TO TAKE PO Naloxone HCl (Narcan Inj) 0.4 mg IV.PUSH UNSCH PRN PRN Reason: SEE LABEL COMMENTS Ondansetron HCl (Zofran Inj) 4 mg IV.PUSH Q6H PRN PRN Reason: NAUSEA OR VOMITING Senna/Docusate Sodium (Shannen-Colace) 1 tab PO BID EMI Sennosides (Senokot) 17.2 mg PO Q12H PRN PRN Reason: Moderate Constipation Allergies Allergy/AdvReac Type Severity Reaction Status Date / Time No Known Allergies Allergy Verified 08/19/18 19:07 Home Medications Medication Instructions Recorded Confirmed Type fluoxetine [Prozac] 60 mg PO DAILY 08/19/18 08/19/18 History gabapentin 800 mg PO QID 08/19/18 08/19/18 History insulin aspart U-100 [Novolog 1 sliding scale dose SUBCUT UD 08/19/18 08/19/18 History U-100 Insulin aspart] insulin detemir U-100 [Levemir 20 unit SUBCUT BID 08/19/18 08/19/18 History U-100 Insulin] Exam Vital signs: Vital Signs 08/19/18 19:03 08/19/18 23:06 08/20/18 00:11 Temperature 99.0 F Pulse Rate 111 H 109 H Respiratory Rate 16 20 18 Blood Pressure 140/72 143/83 H Pulse Oximetry 96 97 08/20/18 00:15 Temperature 98.5 F Pulse Rate 108 H Respiratory Rate 18 Blood Pressure 118/62 Pulse Oximetry 95 Intake & Output 08/19/18 08/19/18 08/20/18 06:59 18:59 06:59 Weight 103.5 kg Narrative: GENERAL: White male laying in bed in mild discomfort. Speaking in full sentences and answering questions appropriately. SKIN: Warm and dry. HEAD: Atraumatic. Normocephalic. EYES: Pupils equal and round. No scleral icterus. No injection or drainage. ENT: No nasal bleeding or discharge. Mucous membranes pink and moist. NECK: Trachea midline. No JVD. CARDIOVASCULAR: Regular rate and rhythm. RESPIRATORY: No accessory muscle use. Clear to auscultation. Breath sounds equal bilaterally. GASTROINTESTINAL: Abdomen soft, non-tender, nondistended. Hepatic and splenic margins not palpable. MUSCULOSKELETAL: Left lower leg in splint/bandage. No edema or skin changes appreciated at the level of the knee. Left toes are visualized and normal in appearance. Appropriate capillary refill with sensation and full range of motion intact in the toes. NEUROLOGICAL: Awake and alert. No obvious cranial nerve deficits. Motor grossly within normal limits. Five out of 5 muscle strength in the arms and legs. Normal speech. PSYCHIATRIC: Appropriate mood and affect; insight and judgment normal. Results - Labs Result diagrams: 08/19/18 22:10 08/19/18 22:10 Abnormal lab results 08/19/18 08/19/18 08/20/18 Range/Units 22:10 22:10 01:01 [place] % (Auto) 10.9 H (0.0-8.0) % Eos % (Auto) 5.4 H (0.0-4.0) % Baso % (Auto) 2.7 H (0.0-2.0) % [place] # (Auto) 1.0 H (0.0-0.9) th/mm3 Eos # (Auto) 0.5 H (0.0-0.4) th/mm3 BUN 30 H (7-18) mg/dL Creatinine 1.40 H (0.60-1.30) mg/dL Estimated GFR 58 L (>89) mL/min POC Glucose 129 H (68-110) mg/dl AST 38 H (15-37) U/L Alkaline Phosphatase 145 H (45-117) U/L Short CBC 08/19/18 Range/Units 22:10 WBC 8.8 (4.0-11.0) th/mm3 Hgb 13.7 (13.0-17.0) gm/dL Hct 41.0 (39.0-51.0) % Plt Count 229 (150-450) th/mm3 BMP 08/19/18 22:10 Sodium 139 Potassium 4.9 Chloride 103 Carbon Dioxide 31.1 BUN 30 H Creatinine 1.40 H Calcium 8.7 Liver Function 08/19/18 Range/Units 22:10 Total Bilirubin 0.5 (0.2-1.0) mg/dL AST 38 H (15-37) U/L ALT 32 (12-78) U/L Alkaline Phosphatase 145 H (45-117) U/L Albumin 3.7 (3.4-5.0) g/dL Urine 08/19/18 Range/Units 23:25 Urine Color Yellow (Yellw/Straw) Urine Clarity Clear (Clear) Urine pH 6.5 (5.0-8.5) Ur Specific [place] 1.025 (1.002-1.035) Urine Protein Negative (Neg-Trace) mg/dL Urine Glucose (UA) Negative (Negative) mg/dL - Imaging Impressions Ankle X-Ray 08/19/18 20:45 CONCLUSION: Fractured medial malleolus with 4 mm of medial displacement. Tiny avulsion type fracture fragments distally of the anterior talofibular ligament. The fibula is intact. Foot X-Ray 08/19/18 20:45 CONCLUSION: Medial malleolus fracture distal tibia. Ankle CT 08/19/18 21:46 CONCLUSION: Ankle fractures as above Chest X-Ray 08/19/18 21:54 CONCLUSION: No evidence of acute cardiopulmonary disease. Mild stable scarring of the left base. Caprini VTE Risk Assessment Caprini VTE Risk Assessment: Moderate/High Risk (score >= 2) Caprini Risk Assessment Model: Point Value = 1 Point Value = 2 Point Value = 3 Point Value = 5 Age 41-60 Minor surgery BMI > 25 kg/m2 Swollen legs Varicose veins or History of unexplained or recurrent spontaneous Oral contraceptives or hormone replacement Sepsis (< 1 month) Serious lung disease, including pneumonia (< 1 month) Abnormal pulmonary function Acute myocardial infarction Congestive heart failure (< 1 month) History of inflammatory bowel disease Medical patient at bed rest Age 61-74 Arthroscopic surgery Major open surgery (> 45 min) Laparoscopic surgery (> 45 min) Malignancy Confined to bed (> 72 hours) Immobilizing plaster cast Central venous access Age >= 75 History of VTE Family history of VTE Factor V Leiden Prothrombin [id number] Lupus anticoagulant Anticardiolipin antibodies Elevated serum homocysteine Heparin-induced thrombocytopenia Other congenital or acquired thrombophilia Stroke (< 1 month) Elective arthroplasty Hip, pelvis, or leg fracture Acute spinal cord injury (< 1 month) Prophylaxis Regimen: Total Risk Factor Score Risk Level Prophylaxis Regimen 0-1 Low Early ambulation 2 Moderate Order ONE of the following: *Sequential Compression Device (SCD) *Heparin 5000 units SQ BID 3-4 Higher Order ONE of the following medications: *Heparin 5000 units SQ TID *Enoxaparin/Lovenox 40 mg SQ daily (WT < 150 kg, CrCl > 30 mL/min) *Enoxaparin/Lovenox 30 mg SQ daily (WT < 150 kg, CrCl > 10-29 mL/min) *Enoxaparin/Lovenox 30 mg SQ BID (WT < 150 kg, CrCl > 30 mL/min) AND/OR *Sequential Compression Device (SCD) 5 or more Highest Order ONE of the following medications: *Heparin 5000 units SQ TID (Preferred with Epidurals) *Enoxaparin/Lovenox 40 mg SQ daily (WT < 150 kg, CrCl > 30 mL/min) *Enoxaparin/Lovenox 30 mg SQ daily (WT < 150 kg, CrCl > 10-29 mL/min) *Enoxaparin/Lovenox 30 mg SQ BID (WT < 150 kg, CrCl > 30 mL/min) AND *Sequential Compression Device (SCD) Assessment and Plan - Assessment (1) Fracture of ankle, left, closed Code(s): S82.892A - Other fracture of left lower leg, initial encounter for closed fracture Status: Acute Plan: Left ankle/foot x-ray on admission showed fractured medial malleolus with 4 mm medial displacement as well as tiny avulsion type fracture fragments distally of the anterior talofibular ligament CT of the ankle showed a mildly displaced fracture the medial malleolus from the remainder of the distal tibial epiphysis. There is slight fragmentation at the tip of the fibula and adjacent to the lateral talus, these likely avulsion injuries. Similar small crescentic fragment along the anterolateral corner of the talus which is presumably avulsion injury Orthopedic surgery consult on admissionrecommending surgery N.p.o. Morphine pain scale Physical therapy and case management consulted CBC, BMP, PT/PTT ordered for the morning (2) Diabetes Code(s): E11.9 - Type 2 diabetes mellitus without complications Status: Acute Plan: Patient with a known history of insulin-dependent type 1 diabetes Typically takes Levemir 25 units twice daily and NovoLog 3 times daily sliding scale Glucose of 94 on admission Holding home insulin on admission, ordering low-dose NovoLog sliding scale - will consider resuming home insulin once patient is tolerating a regular diet Accu-Cheks ordered with hypoglycemia protocol in place Normally takes gabapentin 800 mg 4 times daily for peripheral neuropathy, will resume on the night of postop day 0 (3) WOOD (acute kidney injury) Code(s): N17.9 - Acute kidney failure, unspecified Status: Acute Plan: Patient noted to have a creatinine of 1.40 with a BUN of 30 on admission Most recent creatinine in January 2018 was 1.25 Patient currently on normal saline 125 mL/h UA normal on admission Repeating BMP in the morning, will monitor (4) Hypertension Code(s): I10 - Essential (primary) hypertension Status: Acute Plan: Patient with a known history of hypertension Takes lisinopril 10 mg tablet daily Mildly hypertensive initially in the ED with a blood pressure of 143/83, repeat blood pressure of 118/62 Will resume lisinopril on the night of postop day 0 (5) Depression Code(s): F32.9 - Major depressive disorder, single episode, unspecified Status : Acute Plan: Patient with a known history of depression Takes Prozac 60 mg p.o. daily Will resume on the night of postop day 0 (6) Nutrition, metabolism, and development symptoms Code(s): R63.8 - Other symptoms and signs concerning food and fluid intake Status: Acute Plan: N.p.o. Normal saline IV fluids at 125 mL/h Holding pharmacologic anticoagulation with pending surgery SCDs in the unaffected leg Zofran as needed for nausea Constipation meds protocol - Assessment and Plan 37-year-old male with a history of insulin-dependent type 1 diabetes, depression and hypertension admitted for left ankle fracture. Orthopedic surgery consult on admission and planning for surgery. (1) Fracture of ankle, left, closed Qualifiers: Encounter type: initial encounter Qualified Code(s): S82.892A - Other fracture of left lower leg, initial encounter for closed fracture (2) Diabetes Qualifiers: Diabetes mellitus type: type 1
[2018-08-20] MEDS ORDERED: ceFAZolin 2 GM Premix Inj 2 GM/50 ML PIGGYBACK IV.SIG ONE ×2 (06:59→13:00)
[2018-08-20 07:29] LABS: Activated Partial Thrombo Time 35.6 sec (23.4-31.7)
[2018-08-20] MEDS ORDERED: Metoprolol Tartrate 25 MG Tablet PO SCH (07:29)
[2018-08-20] MEDS ORDERED: Chlorhexidine Gluconate 2% 1 Pack (2 Cloths) TOPICAL SCH (07:29)
[2018-08-20] MEDS: Sodium Chloride 0.9% 2 ML Flush BID IV.FLUSH SCH ×2 (07:30→20:35)
[2018-08-20 07:34] LABS: Baso # (Auto) 0.1 th/mm3 (0.0-0.2); Baso % (Auto) 0.9 % (0.0-2.0); Eos # (Auto) 0.5 th/mm3 (0.0-0.4); Eos % (Auto) 5.9 % (0.0-4.0); Hematocrit 40.9 % (39.0-51.0); Hemoglobin 13.9 gm/dL (13.0-17.0); Lymph # (Auto) 2.1 th/mm3 (1.0-4.8); Lymph % (Auto) 27.4 % (9.0-44.0); Mean Corpuscular HGB Conc 33.9 % (32.0-36.0); Mean Corpuscular Hemoglobin 29.9 pg (27.0-34.0); Mean Corpuscular Volume 88.3 fL (80.0-100.0); Mean Platelet Volume 8.6 fL (7.0-11.0); Mono # (Auto) 0.8 th/mm3 (0.0-0.9); Mono % (Auto) 10.7 % (0.0-8.0); Neut # (Auto) 4.3 th/mm3 (1.8-7.7); Neut % (Auto) 55.1 % (16.0-70.0); Platelet Count 193 th/mm3 (150-450); Red Blood Count 4.64 mil/mm3 (4.50-5.90); Red Cell Distribution Width 12.9 % (11.6-17.2); White Blood Count 7.8 th/mm3 (4.0-11.0)
--- NOTE | 2018-08-20 07:37 | P.PNOP ---
Subjective Interval history: s/p fall at home diabetic and reports that his sugar dropped and he passed out left ankle pain. no other complaints Physical Exam Vital signs: Vital Signs 08/19/18 19:03 08/19/18 23:06 08/20/18 00:11 Temperature 99.0 F Pulse Rate 111 H 109 H Respiratory Rate 16 20 18 Blood Pressure 140/72 143/83 H Pulse Oximetry 96 97 08/20/18 00:15 Temperature 98.5 F Pulse Rate 108 H Respiratory Rate 18 Blood Pressure 118/62 Pulse Oximetry 95 Intake & Output 08/19/18 08/20/18 08/20/18 18:59 06:59 18:59 Intake Total 1000 / 1000 Output Total 200 / 200 Balance 800 / 800 Weight 103.5 kg Intake: IV 1000 / 1000 NS Inj 1,000 ML @ 125 mls/hr IV 1000 / 1000 .CONT .Q8H EMI Rx#:[id number] Output: Urine 200 / 200 Narrative: LLE: +short leg splint. intact. NVI Results - Labs CBC & Chem 7: 08/20/18 07:03 08/19/18 22:10 Laboratory Results - last 24 hr 08/19/18 08/19/18 08/19/18 22:10 22:10 23:25 CBC w Diff Auto diff final WBC 8.8 RBC 4.69 Hgb 13.7 Hct 41.0 MCV 87.6 MCH 29.3 MCHC 33.4 RDW 12.1 Plt Count 229 MPV 8.4 Neut % (Auto) 52.1 Lymph % (Auto) 28.9 [place] % (Auto) 10.9 H Eos % (Auto) 5.4 H Baso % (Auto) 2.7 H Neut # (Auto) 4.6 Lymph # (Auto) 2.5 [place] # (Auto) 1.0 H Eos # (Auto) 0.5 H Baso # (Auto) 0.2 WBC Differential . Differential Comment . PT INR APTT Sodium 139 Potassium 4.9 Chloride 103 Carbon Dioxide 31.1 Anion Gap 5 BUN 30 H Creatinine 1.40 H Estimated GFR 58 L POC Glucose Random Glucose 94 Calcium 8.7 Total Bilirubin 0.5 AST 38 H ALT 32 Alkaline Phosphatase 145 H Total Protein 7.8 Albumin 3.7 Urine Color Yellow Urine Clarity Clear Urine pH 6.5 Ur Specific [place] 1.025 Urine Protein Negative Urine Glucose (UA) Negative Urine Ketones Negative Urine Occult Blood Trace Urine Nitrate Negative Urine Bilirubin Negative Urine Urobilinogen 0.2 Ur Leukocyte Esterase Negative Urine RBC 0-3 Urine WBC 0-5 Ur Squamous Epith Cells 0-5 Micro UA Comment Culture not ind Ur Microscopic Review Microscopic reviewed Urine Culture Comments Culture not ind 08/20/18 08/20/18 08/20/18 01:01 07:03 07:03 CBC w Diff WBC 7.8 RBC 4.64 Hgb 13.9 Hct 40.9 MCV 88.3 MCH 29.9 MCHC 33.9 RDW 12.9 Plt Count 193 MPV 8.6 Neut % (Auto) 55.1 Lymph % (Auto) 27.4 [place] % (Auto) 10.7 H Eos % (Auto) 5.9 H Baso % (Auto) 0.9 Neut # (Auto) 4.3 Lymph # (Auto) 2.1 [place] # (Auto) 0.8 Eos # (Auto) 0.5 H Baso # (Auto) 0.1 WBC Differential . Differential Comment Auto diff final PT 10.0 INR 1.0 APTT 35.6 H Sodium Potassium Chloride Carbon Dioxide Anion Gap BUN Creatinine Estimated GFR POC Glucose 129 H Random Glucose Calcium Total Bilirubin AST ALT Alkaline Phosphatase Total Protein Albumin Urine Color Urine Clarity Urine pH Ur Specific [place] Urine Protein Urine Glucose (UA) Urine Ketones Urine Occult Blood Urine Nitrate Urine Bilirubin Urine Urobilinogen Ur Leukocyte Esterase Urine RBC Urine WBC Ur Squamous Epith Cells Micro UA Comment Ur Microscopic Review Urine Culture Comments - Imaging Impressions Ankle X-Ray 08/19/18 20:45 CONCLUSION: Fractured medial malleolus with 4 mm of medial displacement. Tiny avulsion type fracture fragments distally of the anterior talofibular ligament. The fibula is intact. Foot X-Ray 08/19/18 20:45 CONCLUSION: Medial malleolus fracture distal tibia. Ankle CT 08/19/18 21:46 CONCLUSION: Ankle fractures as above Chest X-Ray 08/19/18 21:54 CONCLUSION: No evidence of acute cardiopulmonary disease. Mild stable scarring of the left base. Assessment and Plan - Assessment and Plan 1) Left Medial Malleolus Fx -npo -consents -surgery this AM with Neyda
[2018-08-20 07:47] LABS: Calcium 8.6 mg/dL (8.5-10.1); Carbon Dioxide 28.9 meq/L (21.0-32.0); Potassium 4.9 meq/L (3.5-5.1)
[2018-08-20] MEDS ORDERED: Insulin NovoLOG Aspart Correctional Sugar Inj SQ SCH (08:00)
[2018-08-20] MEDS ORDERED: Sodium Chlor 0.9% Inj 500 ML IV.SIG SCH (08:00)
[2018-08-20] MEDS ORDERED: Lidocaine PF 1% Inj 5 ML Syringe OTHER ONE (08:44)
--- NOTE | 2018-08-20 08:48 | P.CONOP ---
[facility] Orthopedics Consult Note - [facility] Consult date: 08/20/18 Chief complaint: Fracture Left Ankle Narrative: Jagdish is a 37-year-old male. He has a history of type 1 diabetes, hypertension , and depression. He had a hypoglycemic episode and fell. He injured his ankle when he fell. He did not lose consciousness. His only complaint is his left ankle. He had difficulty standing or ambulating. He presented to the emergency room where x-rays revealed a displaced left ankle medial malleolus fracture. He is currently awake and alert. His only complaint is his left ankle. Pain is severe with movement or weightbearing. Pain is improved with rest. Review of Systems Patient denies fevers, chills, weight loss, headache, visual changes, hearing loss, chest pain, palpitations, shortness of breath, nausea, vomiting, no urinary changes, diarrhea, bowel changes, neck pain, back pain, skin rashes, weakness of extremities, easy bleeding, enlarged lymph nodes, numbness of extremities, anxiety, or depression. He complains of left ankle pain Patient's social history, past medical history, and family history were reviewed on chart and with patient. [facility] - History History Provided By: Patient - Medical History Medical History: Medical History (Last Reviewed 08/20/18 @ 08:42 by Nick Suarez MD) Depression (Acute) Diabetes (Acute) Anxiety Hypertension - Surgical History Surgical History: Surgical History (Last Reviewed 08/20/18 @ 08:42 by Nick Suarez MD) History of hip surgery Hx of eye surgery - Family History Family History: Family History (Last Reviewed 08/20/18 @ 08:42 by Nick Suarez MD) Grandparent Family history of diabetes mellitus - Social History I have reviewed the patient's Social History: Yes - Tobacco History Second Hand Smoke Exposure: Yes Tobacco Use In Past 30 Days: Yes Smoking Status: Current every day smoker Tobacco Type: Cigarettes - Alcohol History How Often Do You Have a Drink Containing Alcohol: Never - Substance Use History Substance History: No History of Abuse - Travel History Recent Travel in the [place] Within the Last 8 Weeks: No Recent Travel Out of the Country Within the Last 8 Weeks: No - Immunization History Tetanus Immunization: Never Vaccinated Medications and Allergies Active Medications: Active Medications Acetaminophen (Tylenol) 650 mg PO Q6HR PRN PRN Reason: PAIN SCALE 1 TO 2 Al Hydroxide/Mg Hydroxide (Milk Of Magnesia Liq) 30 ml PO Q12H PRN PRN Reason: Mild Constipation Bisacodyl (Dulcolax Supp) 10 mg RECTAL DAILY PRN PRN Reason: SEVERE CONSITIPATION Chlorhexidine Gluconate (Chlorhexidine 2% Cloth) 3 pack [employer] [facility] Stop: 08/20/18 23:59 Last Admin: 08/20/18 08:09 Dose: 3 pack Dextrose (D50w Vial) 50 ml IV.PUSH UNSCH PRN PRN Reason: PER HYPOGLYCEMIA PROTOCOL Fluoxetine HCl (Prozac) 60 mg PO DAILY [facility] Gabapentin (Neurontin) 800 mg PO BID [facility] Last Admin: 08/20/18 04:42 Dose: Not Given Glucagon (Glucagon Inj) 1 mg OTHER PRN PRN PRN Reason: for Hypoglycemia Protocol Sodium Chloride (Ns Inj) 1,000 mls @ 125 mls/hr IV.CONT .Q8H [facility] Last Infusion: 08/20/18 05:05 Dose: Infused Lactated Ringer's (Lr 1000 Ml Inj) 1,000 mls @ 30 mls/hr IV.SIG .Q24H [facility] Stop: 08/21/18 07:29 Last Admin: 08/20/18 08:08 Dose: 30 mls/hr Sodium Chloride (Ns Inj) 500 mls @ 30 mls/hr IV.SIG .[id number] [facility] Stop: 08/21/18 00:39 Insulin Aspart (Novolog Insulin Correctional Sugar Inj) 0 unit SQ ACHS [facility]; Protocol Lactulose (Lactulose Liq) 30 ml PO DAILY PRN PRN Reason: SEVERE CONSITIPATION Lisinopril (Prinivil) 10 mg PO DAILY [facility] Metoprolol Tartrate (Lopressor) 25 mg PO [employer] [facility] Stop: 08/20/18 23:59 Morphine Sulfate (Morphine Inj) 2 mg IV.PUSH Q3H PRN PRN Reason: PAIN 3-5; IF UABLE TO TAKE PO Morphine Sulfate (Morphine Inj) 4 mg IV.PUSH Q3H PRN PRN Reason: PAIN 6-10;IF UNABLE TO TAKE PO Last Admin: 08/20/18 08:20 Dose: 4 mg Naloxone HCl (Narcan Inj) 0.4 mg IV.PUSH UNSCH PRN PRN Reason: SEE LABEL COMMENTS Ondansetron HCl (Zofran Inj) 4 mg IV.PUSH Q6H PRN PRN Reason: NAUSEA OR VOMITING Povidone Iodine (Betadine 5% Antisepsis Kit) 1 applicatio EACH [place] [facility] Stop: 08/20/18 23:59 Last Admin: 08/20/18 08:09 Dose: 1 applicatio Senna/Docusate Sodium (Shannen-Colace) 1 tab PO BID [facility] Sennosides (Senokot) 17.2 mg PO Q12H PRN PRN Reason: Moderate Constipation Sodium Chloride (Ns Flush) 2 ml IV.FLUSH BID [facility] Sodium Chloride (Ns Flush) 2 ml IV.FLUSH PRN PRN PRN Reason: FLUSH AFTER USING IV ACCESS Allergies Allergy/AdvReac Type Severity Reaction Status Date / Time No Known Allergies Allergy Verified 08/19/18 19:07 Home Medications Medication Instructions Recorded Confirmed Type fluoxetine [Prozac] 60 mg PO DAILY 08/19/18 08/19/18 History gabapentin 800 mg PO QID 08/19/18 08/19/18 History insulin aspart U-100 [Novolog 1 sliding scale dose SUBCUT UD 08/19/18 08/19/18 History U-100 Insulin aspart] insulin detemir U-100 [Levemir 20 unit SUBCUT BID 08/19/18 08/19/18 History U-100 Insulin] Exam Vital signs: Vital Signs 08/19/18 19:03 08/19/18 23:06 08/20/18 00:11 Temperature 99.0 F Pulse Rate 111 H 109 H Respiratory Rate 16 20 18 Blood Pressure 140/72 143/83 H Pulse Oximetry 96 97 08/20/18 00:15 Temperature 98.5 F Pulse Rate 108 H Respiratory Rate 18 Blood Pressure 118/62 Pulse Oximetry 95 Intake & Output 08/19/18 08/20/18 08/20/18 18:59 06:59 18:59 Intake Total 1000 / 1000 Output Total 200 / 200 Balance 800 / 800 Weight 103.5 kg Intake: IV 1000 / 1000 NS Inj 1,000 ML @ 125 mls/hr IV 1000 / 1000 .CONT .Q8H [facility] Rx#:[id number] Output: Urine 200 / 200 Narrative: Jagdish is a 37-year-old male. General: Awake and alert. No acute distress. Appears well-developed well- nourished Head: Normocephalic, atraumatic pupils are equal Neck: Soft, nontender, trachea midline Abdomen: Soft, nondistended Examination of right arm reveals no pain or deformity with shoulder, elbow, or wrist motion. Skin is intact. Radial pulse is palpable. Normal capillary refill in fingers. Sensation is intact in radial, ulnar, and median nerve distributions. Cloth Bin Packer strength is +5. No lymphadenopathy noted. Examination of left arm reveals no pain or deformity with shoulder, elbow, or wrist motion. Skin is intact. Radial pulse is palpable. Normal capillary refill in fingers. Sensation is intact in radial, ulnar, and median nerve distributions. Cloth Bin Packer strength is +5. No lymphadenopathy noted. Examination of left lower extremity reveals no pain or deformity with hip or knee motion. He is tender to palpation over the medial malleolus of his ankle. He has pain with ankle motion. He has mild swelling present. Skin is intact. Sensation is intact in left foot. Dorsalis pedis pulse is palpable. Normal capillary refill and feet. Thigh and calf compartments are soft. No lymphadenopathy noted. Examination of right lower extremity reveals no pain or deformity with hip, knee , or ankle motion. Skin is intact. Sensation is intact in right foot. Dorsalis pedis pulse is palpable. Normal capillary refill and feet. Thigh and calf compartments are soft. No lymphadenopathy noted. +5 strength of ankle dorsiflexion and plantarflexion. Results - Labs Result Diagrams: 08/20/18 07:03 08/20/18 07:03 Labs: Laboratory Results - last 24 hr 08/19/18 08/19/18 08/19/18 22:10 22:10 23:25 CBC w Diff Auto diff final WBC 8.8 RBC 4.69 Hgb 13.7 Hct 41.0 MCV 87.6 MCH 29.3 MCHC 33.4 RDW 12.1 Plt Count 229 MPV 8.4 Neut % (Auto) 52.1 Lymph % (Auto) 28.9 [place] % (Auto) 10.9 H Eos % (Auto) 5.4 H Baso % (Auto) 2.7 H Neut # (Auto) 4.6 Lymph # (Auto) 2.5 [place] # (Auto) 1.0 H Eos # (Auto) 0.5 H Baso # (Auto) 0.2 WBC Differential . Differential Comment . PT INR APTT Sodium 139 Potassium 4.9 Chloride 103 Carbon Dioxide 31.1 Anion Gap 5 BUN 30 H Creatinine 1.40 H Estimated GFR 58 L POC Glucose Random Glucose 94 Calcium 8.7 Total Bilirubin 0.5 AST 38 H ALT 32 Alkaline Phosphatase 145 H Total Protein 7.8 Albumin 3.7 Urine Color Yellow Urine Clarity Clear Urine pH 6.5 Ur Specific [place] 1.025 Urine Protein Negative Urine Glucose (UA) Negative Urine Ketones Negative Urine Occult Blood Trace Urine Nitrate Negative Urine Bilirubin Negative Urine Urobilinogen 0.2 Ur Leukocyte Esterase Negative Urine RBC 0-3 Urine WBC 0-5 Ur Squamous Epith Cells 0-5 Micro UA Comment Culture not ind Ur Microscopic Review Microscopic reviewed Urine Culture Comments Culture not ind 08/20/18 08/20/18 08/20/18 01:01 07:03 07:03 CBC w Diff WBC 7.8 RBC 4.64 Hgb 13.9 Hct 40.9 MCV 88.3 MCH 29.9 MCHC 33.9 RDW 12.9 Plt Count 193 MPV 8.6 Neut % (Auto) 55.1 Lymph % (Auto) 27.4 [place] % (Auto) 10.7 H Eos % (Auto) 5.9 H Baso % (Auto) 0.9 Neut # (Auto) 4.3 Lymph # (Auto) 2.1 [place] # (Auto) 0.8 Eos # (Auto) 0.5 H Baso # (Auto) 0.1 WBC Differential . Differential Comment Auto diff final PT 10.0 INR 1.0 APTT 35.6 H Sodium Potassium Chloride Carbon Dioxide Anion Gap BUN Creatinine Estimated GFR POC Glucose 129 H Random Glucose Calcium Total Bilirubin AST ALT Alkaline Phosphatase Total Protein Albumin Urine Color Urine Clarity Urine pH Ur Specific [place] Urine Protein Urine Glucose (UA) Urine Ketones Urine Occult Blood Urine Nitrate Urine Bilirubin Urine Urobilinogen Ur Leukocyte Esterase Urine RBC Urine WBC Ur Squamous Epith Cells Micro UA Comment Ur Microscopic Review Urine Culture Comments 08/20/18 08/20/18 07:03 07:37 CBC w Diff WBC RBC Hgb Hct MCV MCH MCHC RDW Plt Count MPV Neut % (Auto) Lymph % (Auto) [place] % (Auto) Eos % (Auto) Baso % (Auto) Neut # (Auto) Lymph # (Auto) [place] # (Auto) Eos # (Auto) Baso # (Auto) WBC Differential Differential Comment PT INR APTT Sodium 137 Potassium 4.9 Chloride 103 Carbon Dioxide 28.9 Anion Gap 5 BUN 25 H Creatinine 1.12 Estimated GFR 75 L POC Glucose 303 H Random Glucose 327 H D Calcium 8.6 Total Bilirubin AST ALT Alkaline Phosphatase Total Protein Albumin Urine Color Urine Clarity Urine pH Ur Specific [place] Urine Protein Urine Glucose (UA) Urine Ketones Urine Occult Blood Urine Nitrate Urine Bilirubin Urine Urobilinogen Ur Leukocyte Esterase Urine RBC Urine WBC Ur Squamous Epith Cells Micro UA Comment Ur Microscopic Review Urine Culture Comments - Diagnostic results Imaging: Impressions Ankle X-Ray 08/19/18 20:45 CONCLUSION: Fractured medial malleolus with 4 mm of medial displacement. Tiny avulsion type fracture fragments distally of the anterior talofibular ligament. The fibula is intact. Foot X-Ray 08/19/18 20:45 CONCLUSION: Medial malleolus fracture distal tibia. Ankle CT 08/19/18 21:46 CONCLUSION: Ankle fractures as above Chest X-Ray 08/19/18 21:54 CONCLUSION: No evidence of acute cardiopulmonary disease. Mild stable scarring of the left base. Ankle/Foot x-ray: report reviewed, image reviewed Assessment and Plan - Assessment and Plan Jagdish has a displaced left ankle medial malleolus fracture. Treatment options were discussed with patient. At this point I would recommend open reduction internal fixation of left ankle fracture. The risk and benefits of surgery were discussed. All questions were answered. The risk and benefits of surgery were discussed in depth with patient. The risk of surgery include bleeding, infection, injuries to arteries, nerves, or blood vessels, infection, wound complications, nonunion, malunion, painful hardware, and need for further surgery. I also discussed medical complications including blood clots, pneumonia, stroke, heart attack, and . Informed consent was obtained and all questions were answered. N.p.o.--plan on surgery this morning Calcium and vitamin D supplementation Physical therapy consult--nonweightbearing left leg Follow-up with Dr. Suarez in 2 weeks Martin, VINCE neves, WATSON A mid-level provider in my office (nurse practitioner or physician bilingual medical assistant) may see this patient on follow-up visits and continue to implement the objectives of this plan including: Starting or adjusting medications, injections , cast application, orthotics, brace application, physical therapy, radiological studies (including x-ray, MRI, CT, ultrasound, bone scan), vascular studies, neurologic studies, specialist consultation, and proceeding with surgical management, as appropriate.
[2018-08-20] MEDS ORDERED: HYDROmorphone PF Inj 2 MG/ML Vial ONE (09:07)
[2018-08-20] MEDS ORDERED: fentaNYL Citrate Inj 100 MCG/2 ML Ampul ONE ×2 (09:53)
[2018-08-20] MEDS ORDERED: *Meperidine Inj 25 MG/ML Vial PERIprocedural Use ONLY ONE (09:56)
[2018-08-20] MEDS ORDERED: *morphine SULFATE 8 MG/ML PERIprocedure ONLY ONE ×2 (09:56→10:05)
[2018-08-20] MEDS ORDERED: *HYDROmorphone PF Inj 1 MG/ML Ampul PERIprocedural Use ONLY ONE ×3 (10:10→10:39)
[2018-08-20] MEDS ORDERED: Insulin Detemir Inj 1,000 UNIT/10 ML Vial SQ ONE (10:55)
[2018-08-20] MEDS: Sod Chloride 0.9% Inj 1,000 ML IV.CONT SCH ×2 (10:59→18:16)
[2018-08-20] MEDS: Senna/Docusate Sodium 8.6/50 MG Tablet PO SCH ×2 (11:01→20:35)
[2018-08-20] MEDS: Lisinopril 10 MG Tablet PO SCH (11:01)
[2018-08-20] MEDS: FLUoxetine 20 MG Capsule PO SCH (11:02)
--- NOTE | 2018-08-20 12:03 | P.PNFP ---
Subjective Interval history: Patient seen and examined this morning with his mother at the bedside. Per report, patient surgery went well without complications. We briefly discussed his recent history of his fracture. We also discussed his type 1 diabetes and the difficulties controlling his blood sugars at this time. 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 We discussed that currently he is using 20 units of Levemir twice a day and a medium dose sliding scale based of his preprandial blood sugars. He is on to state that his blood sugar has been very difficult to control as an outpatient and his sliding scale insulin dose ranges from day- to-day. Currently endorses pain in his left ankle, but otherwise has no complaints at this time. He denies any recent fevers, chills, shortness of breath, chest pain, NVD, abdominal pain, or calf tenderness. Results - Labs Result diagrams: 08/20/18 07:03 08/20/18 07:03 Abnormal lab results 08/19/18 08/19/18 08/20/18 Range/Units 22:10 22:10 01:01 [place] % (Auto) 10.9 H (0.0-8.0) % Eos % (Auto) 5.4 H (0.0-4.0) % Baso % (Auto) 2.7 H (0.0-2.0) % [place] # (Auto) 1.0 H (0.0-0.9) th/mm3 Eos # (Auto) 0.5 H (0.0-0.4) th/mm3 APTT (23.4-31.7) sec BUN 30 H (7-18) mg/dL Creatinine 1.40 H (0.60-1.30) mg/dL Estimated GFR 58 L (>89) mL/min POC Glucose 129 H (68-110) mg/dl Random Glucose (74-106) mg/dL AST 38 H (15-37) U/L Alkaline Phosphatase 145 H (45-117) U/L 08/20/18 08/20/18 08/20/18 Range/Units 07:03 07:03 07:03 [place] % (Auto) 10.7 H (0.0-8.0) % Eos % (Auto) 5.9 H (0.0-4.0) % Baso % (Auto) (0.0-2.0) % [place] # (Auto) (0.0-0.9) th/mm3 Eos # (Auto) 0.5 H (0.0-0.4) th/mm3 APTT 35.6 H (23.4-31.7) sec BUN 25 H (7-18) mg/dL Creatinine (0.60-1.30) mg/dL Estimated GFR 75 L (>89) mL/min POC Glucose (68-110) mg/dl Random Glucose 327 H D (74-106) mg/dL AST (15-37) U/L Alkaline Phosphatase (45-117) U/L 08/20/18 08/20/18 08/20/18 Range/Units 07:37 09:02 09:48 [place] % (Auto) (0.0-8.0) % Eos % (Auto) (0.0-4.0) % Baso % (Auto) (0.0-2.0) % [place] # (Auto) (0.0-0.9) th/mm3 Eos # (Auto) (0.0-0.4) th/mm3 APTT (23.4-31.7) sec BUN (7-18) mg/dL Creatinine (0.60-1.30) mg/dL Estimated GFR (>89) mL/min POC Glucose 303 H 384 H 463 H* (68-110) mg/dl Random Glucose (74-106) mg/dL AST (15-37) U/L Alkaline Phosphatase (45-117) U/L 08/20/18 08/20/18 Range/Units 10:52 11:27 [place] % (Auto) (0.0-8.0) % Eos % (Auto) (0.0-4.0) % Baso % (Auto) (0.0-2.0) % [place] # (Auto) (0.0-0.9) th/mm3 Eos # (Auto) (0.0-0.4) th/mm3 APTT (23.4-31.7) sec BUN (7-18) mg/dL Creatinine (0.60-1.30) mg/dL Estimated GFR (>89) mL/min POC Glucose 349 H 372 H (68-110) mg/dl Random Glucose (74-106) mg/dL AST (15-37) U/L Alkaline Phosphatase (45-117) U/L Short CBC 08/19/18 08/20/18 Range/Units 22:10 07:03 WBC 8.8 7.8 (4.0-11.0) th/mm3 Hgb 13.7 13.9 (13.0-17.0) gm/dL Hct 41.0 40.9 (39.0-51.0) % Plt Count 229 193 (150-450) th/mm3 BMP 08/19/18 08/20/18 22:10 07:03 Sodium 139 137 Potassium 4.9 4.9 Chloride 103 103 Carbon Dioxide 31.1 28.9 BUN 30 H 25 H Creatinine 1.40 H 1.12 Calcium 8.7 8.6 Liver Function 08/19/18 Range/Units 22:10 Total Bilirubin 0.5 (0.2-1.0) mg/dL AST 38 H (15-37) U/L ALT 32 (12-78) U/L Alkaline Phosphatase 145 H (45-117) U/L Albumin 3.7 (3.4-5.0) g/dL Urine 08/19/18 Range/Units 23:25 Urine Color Yellow (Yellw/Straw) Urine Clarity Clear (Clear) Urine pH 6.5 (5.0-8.5) Ur Specific [place] 1.025 (1.002-1.035) Urine Protein Negative (Neg-Trace) mg/dL Urine Glucose (UA) Negative (Negative) mg/dL - Imaging Impressions Ankle X-Ray 08/19/18 20:45 CONCLUSION: Fractured medial malleolus with 4 mm of medial displacement. Tiny avulsion type fracture fragments distally of the anterior talofibular ligament. The fibula is intact. Foot X-Ray 08/19/18 20:45 CONCLUSION: Medial malleolus fracture distal tibia. Ankle CT 08/19/18 21:46 CONCLUSION: Ankle fractures as above Chest X-Ray 08/19/18 21:54 CONCLUSION: No evidence of acute cardiopulmonary disease. Mild stable scarring of the left base. Physical Exam Vital signs: Vital Signs 08/19/18 19:03 08/19/18 23:06 08/20/18 00:11 Temperature 99.0 F Pulse Rate 111 H 109 H Respiratory Rate 16 20 18 Blood Pressure 140/72 143/83 H Pulse Oximetry 96 97 08/20/18 00:15 08/20/18 08:00 08/20/18 09:42 Temperature 98.5 F 97.5 F L Pulse Rate 108 H 103 H Respiratory Rate 18 12 Blood Pressure 118/62 140/92 H Pulse Oximetry 95 94 L 97 08/20/18 09:45 08/20/18 10:00 08/20/18 10:15 Temperature Pulse Rate 103 H 100 H 94 H Respiratory Rate 14 15 18 Blood Pressure 144/97 H 140/84 136/82 Pulse Oximetry 99 100 99 08/20/18 10:30 08/20/18 10:45 08/20/18 10:57 Temperature Pulse Rate 94 H 95 H Respiratory Rate 24 22 Blood Pressure 139/74 128/68 Pulse Oximetry 100 96 97 08/20/18 11:00 Temperature 97.7 F Pulse Rate 95 H Respiratory Rate 20 Blood Pressure 122/65 Pulse Oximetry 95 Intake & Output 08/19/18 08/20/18 08/20/18 18:59 06:59 18:59 Intake Total 1000 / 1000 950 / 950 Output Total 200 / 200 750 / 750 Balance 800 / 800 200 / 200 Weight 103.5 kg Intake: IV 1000 / 1000 50 / 50 NS Inj 1,000 ML @ 125 mls/hr IV 1000 / 1000 .CONT .Q8H [facility] Rx#:[id number] Ancef 2 GM Premix Inj 2 gm In 50 / 50 50 ml @ 0 mls/hr IV.SIG .[facility] Rx#:[id number] Anesthesia Amount 900 / 900 Output: Urine 200 / 200 700 / 700 Estimated Blood Loss 50 / 50 Other: # Voids 1 Narrative: GENERAL: Well-nourished, well-developed male lying in bed watching television with his mother at the bedside in no acute distress. SKIN: Warm and dry. No rash. Multiple tattoos on upper extremities. HEENT: Atraumatic, normocephalic with extraocular motions intact. No rhinorrhea. No visible lymphadenopathy or jugulovenous distension appreciated. CARDIOVASCULAR: Regular rate and rhythm without obvious murmurs, gallops, or rubs. 2+ pulses in all four extremities. RESPIRATORY: Clear to auscultation bilaterally with no crackles, wheezes, or rhonchi. No increased work of breathing. GASTROINTESTINAL: Abdomen soft, non-tender, nondistended with positive bowel sounds. No masses appreciated. MUSCULOSKELETAL: No cyanosis or edema. No calf tenderness. Left lower extremity in [place] wrap bandage with ice applied. Patient able to move all of his left foot digits with appropriate capillary refill. No erythema or edema appreciated above patient's bandage. Calves nontender to palpation bilaterally. NEURO/PSYCH: Afocal. Awake, alert, and oriented x3. Normal speech and judgement. Assessment and Plan - Assessment (1) Fracture of ankle, left, closed Code(s): S82.892A - Other fracture of left lower leg, initial encounter for closed fracture Status: Acute Plan: -Left ankle/foot x-ray: Fractured medial malleolus with 4 mm medial displacement as well as tiny avulsion type fracture fragments distally of the anterior talofibular ligament -CT of the ankle: Mildly displaced fracture the medial malleolus from the remainder of the distal tibial epiphysis. There is slight fragmentation at the tip of the fibula and adjacent to the lateral talus, these likely avulsion injuries. Similar small crescentic fragment along the anterolateral corner of the talus which is presumably avulsion injury Orthopedic surgery consulted, appreciate recommendations Medications: [place] for pain control Gabapentin to assist with polyneuropathy pain Shannen-Colace to assist with possible constipation Patient received morphine, Dilaudid, and Demerol perioperatively (2) Diabetes Code(s): E11.9 - Type 2 diabetes mellitus without complications Status: Acute Plan: Patient with a known history of insulin-dependent type 1 diabetes. Patient typically takes Levemir 20 units twice daily and NovoLog 3 times daily based off preprandial blood sugars with medium sliding scale. Patient's blood glucose likely to be fluctuant over the next 24 hours due to being n.p.o. as well as missing his insulin due to being evaluated in the ED and during surgery. Continue to monitor blood sugar favoring hyperglycemia as patient states he does have a susceptibility to hypoglycemia. Medications: Levemir 10 units twice daily Medium sliding scale insulin per protocol Gabapentin to assist with neuropathy (3) WOOD (acute kidney injury) Code(s): N17.9 - Acute kidney failure, unspecified Status: Acute Plan: Patient noted to have a creatinine of 1.40 with a BUN of 30 on admission. Most recent creatinine in January 2018 was 1.25. BMP: Creatinine 1.12 with BUN of 25, otherwise electrolytes within normal limits Medications: -Normal saline 125 mL/h overnight (4) Hypertension Code(s): I10 - Essential (primary) hypertension Status: Acute Plan: Patient with a known history of hypertension Medications: Resume lisinopril 10 mg daily (5) Depression Code(s): F32.9 - Major depressive disorder, single episode, unspecified Status : Acute Plan: Patient with a known history of depression Medications: -Continue Prozac postoperatively (6) History of drug abuse Code(s): Z87.898 - Personal history of other specified conditions Status: Acute Plan: Patient in mother report patient has history of drug abuse and is currently in remission. Discussed with patient possible use of NSAID therapy to control pain , patient declines stating that his pain is too severe and requests hydrocodone at this time. Continue to monitor (7) Nutrition, metabolism, and development symptoms Code(s): R63.8 - Other symptoms and signs concerning food and fluid intake Status: Acute Plan: Diet: Diabetic diet as tolerated Fluids: Patient tolerating oral fluids, IV fluid per post surgical protocol DVT prophylaxis: Hold as patient is postop, SCDs in the unaffected leg Prophylaxis: Pain control as above, constipation protocol for constipation, Zofran as needed for nausea Physical therapy consulted Case management consulted - Assessment and Plan 37-year-old male with a history of insulin-dependent type 1 diabetes, depression and hypertension admitted for left ankle fracture. Orthopedic surgery consult on admission and planning for surgery. (1) Fracture of ankle, left, closed Qualifiers: Encounter type: initial encounter Qualified Code(s): S82.892A - Other fracture of left lower leg, initial encounter for closed fracture (2) Diabetes Qualifiers: Diabetes mellitus type: type 1
--- NOTE | 2018-08-20 13:06 | XR ---
EXAM DATE: 08/20/2018 12:58 PM EST AGE/SEX: 37 years / Male INDICATIONS: Orif left ankle. CLINICAL DATA: This is the patient's subsequent encounter. Patient reports that signs and symptoms h ave been present for 2 days and indicates a pain score of Nonresponsive. MEDICAL/SURGICAL HISTORY: None. None. COMPARISON: [facility], CT ANKLE LEFT W/O CONTRAST, 08/19/2018. . FINDINGS: 2 views of the left ankle demonstrates open reduction and internal fixation of a displaced medial mal leolus fracture. There is good apposition of the fracture fragments. 2 fixation screws have been plac ed. CONCLUSION: Status post ORIF of the left ankle Electronically signed by: Phil Crocker MD 08/20/2018 1:05 PM EST
[2018-08-20] MEDS: Insulin NovoLOG Aspart Correctional Sugar Inj SQ SCH ×3 (16:29→20:35)
--- NOTE | 2018-08-20 19:13 | ECG ---
Date Performed: 08/19/2018 Time Performed: 22:50:06 PTAGE: 37 years EKG: SINUS TACHYCARDIA POSSIBLE LEFT ATRIAL ENLARGEMENT PRIOR ECG 12/17/2017 3.18: Since the PREVIOUS TRACING , no significant change noted DOCTOR: Bhavik Baker Interpretating Date/Time 08/20/2018 19:12:41
[2018-08-20] MEDS: Insulin Detemir Inj 1,000 UNIT/10 ML Vial SQ SCH (20:34)
[2018-08-21] MEDS: Sod Chloride 0.9% Inj 1,000 ML IV.CONT SCH ×2 (00:10→05:25)
--- NOTE | 2018-08-21 07:36 | P.PNOP ---
Subjective Interval history: POD 1 s/p ORIF left medial malleolus doing well. pain controlled. no complaints. states did well with walker yesterday Physical Exam Vital signs: Vital Signs 08/20/18 08:00 08/20/18 09:42 08/20/18 09:45 Temperature 97.5 F L Pulse Rate 103 H 103 H Respiratory Rate 12 14 Blood Pressure 140/92 H 144/97 H Pulse Oximetry 94 L 97 99 08/20/18 10:00 08/20/18 10:15 08/20/18 10:30 Temperature Pulse Rate 100 H 94 H 94 H Respiratory Rate 15 18 24 Blood Pressure 140/84 136/82 139/74 Pulse Oximetry 100 99 100 08/20/18 10:45 08/20/18 10:57 08/20/18 11:00 Temperature 97.7 F Pulse Rate 95 H 95 H Respiratory Rate 22 20 Blood Pressure 128/68 122/65 Pulse Oximetry 96 97 95 08/20/18 12:00 08/20/18 16:00 08/20/18 18:01 Temperature 97.7 F 98.3 F Pulse Rate 92 H 93 H Respiratory Rate 19 16 16 Blood Pressure 136/87 136/76 Pulse Oximetry 97 97 08/20/18 20:00 08/21/18 00:00 08/21/18 04:00 Temperature 97.3 F L 97.6 F 97.3 F L Pulse Rate 86 80 89 Respiratory Rate 17 20 16 Blood Pressure 122/73 119/71 128/89 Pulse Oximetry 94 L 96 93 L Intake & Output 08/20/18 08/21/18 08/21/18 18:59 06:59 18:59 Intake Total 1100 / 1100 1000 / 1000 Output Total 1500 / 1500 Balance -400 / -400 1000 / 1000 Weight 103.5 kg Intake: IV 100 / 100 1000 / 1000 NS Inj 1,000 ML @ 125 mls/hr IV 1000 / 1000 .CONT .Q8H EMI Rx#:[id number] Ancef 2 GM Premix Inj 2 gm In 100 / 100 50 ml @ 100 mls/hr IV.SIG ONCE ONE Rx#:[id number] Anesthesia Amount 1000 / 1000 Output: Urine 1400 / 1400 Estimated Blood Loss 100 / 100 Other: # Voids 1 3 Narrative: LLE: +short leg splint. intact. NVI Results - Labs CBC & Chem 7: 08/20/18 07:03 08/20/18 07:03 Laboratory Results - last 24 hr 08/20/18 08/20/18 08/20/18 07:03 07:03 07:37 WBC 7.8 RBC 4.64 Hgb 13.9 Hct 40.9 MCV 88.3 MCH 29.9 MCHC 33.9 RDW 12.9 Plt Count 193 MPV 8.6 Neut % (Auto) 55.1 Lymph % (Auto) 27.4 [place] % (Auto) 10.7 H Eos % (Auto) 5.9 H Baso % (Auto) 0.9 Neut # (Auto) 4.3 Lymph # (Auto) 2.1 [place] # (Auto) 0.8 Eos # (Auto) 0.5 H Baso # (Auto) 0.1 WBC Differential . Differential Comment Auto diff final Sodium 137 Potassium 4.9 Chloride 103 Carbon Dioxide 28.9 Anion Gap 5 BUN 25 H Creatinine 1.12 Estimated GFR 75 L POC Glucose 303 H Random Glucose 327 H D Calcium 8.6 08/20/18 08/20/18 08/20/18 09:02 09:48 10:52 WBC RBC Hgb Hct MCV MCH MCHC RDW Plt Count MPV Neut % (Auto) Lymph % (Auto) [place] % (Auto) Eos % (Auto) Baso % (Auto) Neut # (Auto) Lymph # (Auto) [place] # (Auto) Eos # (Auto) Baso # (Auto) WBC Differential Differential Comment Sodium Potassium Chloride Carbon Dioxide Anion Gap BUN Creatinine Estimated GFR POC Glucose 384 H 463 H* 349 H Random Glucose Calcium 08/20/18 08/20/18 08/20/18 11:27 13:11 16:33 WBC RBC Hgb Hct MCV MCH MCHC RDW Plt Count MPV Neut % (Auto) Lymph % (Auto) [place] % (Auto) Eos % (Auto) Baso % (Auto) Neut # (Auto) Lymph # (Auto) [place] # (Auto) Eos # (Auto) Baso # (Auto) WBC Differential Differential Comment Sodium Potassium Chloride Carbon Dioxide Anion Gap BUN Creatinine Estimated GFR POC Glucose 372 H 280 H 310 H Random Glucose Calcium 08/20/18 20:21 WBC RBC Hgb Hct MCV MCH MCHC RDW Plt Count MPV Neut % (Auto) Lymph % (Auto) [place] % (Auto) Eos % (Auto) Baso % (Auto) Neut # (Auto) Lymph # (Auto) [place] # (Auto) Eos # (Auto) Baso # (Auto) WBC Differential Differential Comment Sodium Potassium Chloride Carbon Dioxide Anion Gap BUN Creatinine Estimated GFR POC Glucose 349 H Random Glucose Calcium - Imaging Impressions Ankle X-Ray 08/20/18 00:00 CONCLUSION: Status post ORIF of the left ankle Assessment and Plan - Assessment and Plan 1) Left Medial Malleolus Fx s/p ORIF - POD 1 -NWB -elevate -maintain splint at all times -ortho clear for DC home today -f/u with Neyda or [facility] in 2 weeks [id number] Prescription Drug Monitoring Database has been queried and verified prior to prescribing the controlled substance. Acute pain exception. This patient has normal, predicted, physiological, and time limited response to an adverse mechanical stimulus associated with surgery, trauma, or acute illness as described in my notes. There is a lack of alternative treatment options other than to include the prescribed narcotic treatment for this condition.
[2018-08-21 07:55] LABS: Hematocrit 40.1 % (39.0-51.0); Hemoglobin 13.6 gm/dL (13.0-17.0); Mean Corpuscular HGB Conc 33.9 % (32.0-36.0); Mean Corpuscular Hemoglobin 29.8 pg (27.0-34.0); Mean Platelet Volume 8.6 fL (7.0-11.0); Platelet Count 204 th/mm3 (150-450); Red Blood Count 4.56 mil/mm3 (4.50-5.90); Red Cell Distribution Width 12.6 % (11.6-17.2); White Blood Count 7.5 th/mm3 (4.0-11.0)
[2018-08-21 08:13] LABS: Calcium 8.8 mg/dL (8.5-10.1); Carbon Dioxide 26.9 meq/L (21.0-32.0); Potassium 4.3 meq/L (3.5-5.1)
[2018-08-21] MEDS: Gabapentin 400 MG Capsule PO SCH (08:57)
[2018-08-21] MEDS: Senna/Docusate Sodium 8.6/50 MG Tablet PO SCH (08:57)
[2018-08-21] MEDS: FLUoxetine 20 MG Capsule PO SCH (08:57)
[2018-08-21] MEDS: Lisinopril 10 MG Tablet PO SCH (08:57)
[2018-08-21] MEDS: Insulin Detemir Inj 1,000 UNIT/10 ML Vial SQ SCH (08:59)
--- NOTE | 2018-08-21 10:00 | P.PNFP ---
Subjective Interval history: Patient seen and examined this morning with mother at bedside. No acute events overnight per nursing staff. Patient is currently postop day 1 from left ankle fracture repair. Patient states he did well yesterday with physical therapy and was cleared by orthopedic surgery this morning for discharge. He states that currently he has no other complaints other than his left ankle pain. He endorses good sensation throughout his lower extremity is able to move all digits. Patient states he has tolerated his diet well and has been able to have a uncomplicated bowel movement. We briefly discussed his blood sugar control, and patient states that his elevated blood sugar "is normal for him." We discussed appropriate follow-up with Dr. Faye in [address] Zhang in 1 for reevaluation's. We also discussed outpatient physical therapy once he is cleared by orthopedic surgery. Otherwise both him and his mother have no complaints or questions. Patient denies a complete review of systems including but not limited to any recent fevers, chills, shortness of breath, chest pain, NVD, abdominal pain, or calf tenderness at this time. <Bhavik Blanco H - 08/21/18 10:00> Results - Labs Result diagrams: 08/21/18 07:30 08/21/18 07:30 <Radu Sanchez - 08/21/18 12:32> Abnormal lab results 08/20/18 08/20/18 08/20/18 Range/Units 13:11 16:33 20:21 BUN (7-18) mg/dL Estimated GFR (>89) mL/min POC Glucose 280 H 310 H 349 H (68-110) mg/dl Random Glucose (74-106) mg/dL 08/21/18 08/21/18 Range/Units 07:29 07:30 BUN 21 H (7-18) mg/dL Estimated GFR 85 L (>89) mL/min POC Glucose 232 H (68-110) mg/dl Random Glucose 243 H (74-106) mg/dL Short CBC 08/21/18 Range/Units 07:30 WBC 7.5 (4.0-11.0) th/mm3 Hgb 13.6 (13.0-17.0) gm/dL Hct 40.1 (39.0-51.0) % Plt Count 204 (150-450) th/mm3 BMP 08/21/18 07:30 Sodium 136 Potassium 4.3 Chloride 100 Carbon Dioxide 26.9 BUN 21 H Creatinine 1.00 Calcium 8.8 <Radu Sanchez - 08/21/18 12:32> Abnormal lab results 08/20/18 08/20/18 08/20/18 Range/Units 09:48 10:52 11:27 BUN (7-18) mg/dL Estimated GFR (>89) mL/min POC Glucose 463 H* 349 H 372 H (68-110) mg/dl Random Glucose (74-106) mg/dL 08/20/18 08/20/18 08/20/18 Range/Units 13:11 16:33 20:21 BUN (7-18) mg/dL Estimated GFR (>89) mL/min POC Glucose 280 H 310 H 349 H (68-110) mg/dl Random Glucose (74-106) mg/dL 08/21/18 08/21/18 Range/Units 07:29 07:30 BUN 21 H (7-18) mg/dL Estimated GFR 85 L (>89) mL/min POC Glucose 232 H (68-110) mg/dl Random Glucose 243 H (74-106) mg/dL Short CBC 08/21/18 Range/Units 07:30 WBC 7.5 (4.0-11.0) th/mm3 Hgb 13.6 (13.0-17.0) gm/dL Hct 40.1 (39.0-51.0) % Plt Count 204 (150-450) th/mm3 BMP 08/21/18 07:30 Sodium 136 Potassium 4.3 Chloride 100 Carbon Dioxide 26.9 BUN 21 H Creatinine 1.00 Calcium 8.8 <Bhvaik Blanco - 08/21/18 10:00> - Imaging Impressions Ankle X-Ray 08/20/18 00:00 CONCLUSION: Status post ORIF of the left ankle <Radu Sanchez - 08/21/18 12:32> Impressions Ankle X-Ray 08/20/18 00:00 CONCLUSION: Status post ORIF of the left ankle <Bhavik Blanco - 08/21/18 10:00> Physical Exam Vital signs: Vital Signs 08/20/18 16:00 08/20/18 18:01 08/20/18 20:00 Temperature 98.3 F 97.3 F L Pulse Rate 93 H 86 Respiratory Rate 16 16 17 Blood Pressure 136/76 122/73 Pulse Oximetry 97 94 L 08/21/18 00:00 08/21/18 04:00 08/21/18 08:00 Temperature 97.6 F 97.3 F L 97.9 F Pulse Rate 80 89 91 H Respiratory Rate 20 16 20 Blood Pressure 119/71 128/89 141/89 H Pulse Oximetry 96 93 L 94 L Intake & Output 08/20/18 08/21/18 08/21/18 18:59 06:59 18:59 Intake Total 1100 / 1100 1000 / 1000 Output Total 1500 / 1500 Balance -400 / -400 1000 / 1000 Weight 103.5 kg Intake: IV 100 / 100 1000 / 1000 NS Inj 1,000 ML @ 125 mls/hr IV 1000 / 1000 .CONT .Q8H EMI Rx#:[id number] Ancef 2 GM Premix Inj 2 gm In 100 / 100 50 ml @ 100 mls/hr IV.SIG ONCE ONE Rx#:[id number] Anesthesia Amount 1000 / 1000 Output: Urine 1400 / 1400 Estimated Blood Loss 100 / 100 Other: # Voids 1 3 <Prevatte,Radu - 08/21/18 12:32> Vital Signs 08/20/18 10:00 08/20/18 10:15 08/20/18 10:30 Temperature Pulse Rate 100 H 94 H 94 H Respiratory Rate 15 18 24 Blood Pressure 140/84 136/82 139/74 Pulse Oximetry 100 99 100 08/20/18 10:45 08/20/18 10:57 08/20/18 11:00 Temperature 97.7 F Pulse Rate 95 H 95 H Respiratory Rate 22 20 Blood Pressure 128/68 122/65 Pulse Oximetry 96 97 95 08/20/18 12:00 08/20/18 16:00 08/20/18 18:01 Temperature 97.7 F 98.3 F Pulse Rate 92 H 93 H Respiratory Rate 19 16 16 Blood Pressure 136/87 136/76 Pulse Oximetry 97 97 08/20/18 20:00 08/21/18 00:00 08/21/18 04:00 Temperature 97.3 F L 97.6 F 97.3 F L Pulse Rate 86 80 89 Respiratory Rate 17 20 16 Blood Pressure 122/73 119/71 128/89 Pulse Oximetry 94 L 96 93 L Intake & Output 08/20/18 08/21/18 08/21/18 18:59 06:59 18:59 Intake Total 1100 / 1100 1000 / 1000 Output Total 1500 / 1500 Balance -400 / -400 1000 / 1000 Weight 103.5 kg Intake: IV 100 / 100 1000 / 1000 NS Inj 1,000 ML @ 125 mls/hr IV 1000 / 1000 .CONT .Q8H EMI Rx#:[id number] Ancef 2 GM Premix Inj 2 gm In 100 / 100 50 ml @ 100 mls/hr IV.SIG ONCE ONE Rx#:[id number] Anesthesia Amount 1000 / 1000 Output: Urine 1400 / 1400 Estimated Blood Loss 100 / 100 Other: # Voids 1 3 <Bhavik Blanco H - 08/21/18 10:00> Narrative: GENERAL: Well-nourished, well-developed male lying in bed listening to music on his phone with his mother at the bedside in no acute distress. SKIN: Warm and dry. No rash. Multiple tattoos on upper extremities. HEENT: Atraumatic, normocephalic with extraocular motions intact. No rhinorrhea. No visible lymphadenopathy or jugulovenous distension appreciated. CARDIOVASCULAR: Regular rate and rhythm without obvious murmurs, gallops, or rubs. 2+ pulses in all four extremities. RESPIRATORY: Clear to auscultation bilaterally with no crackles, wheezes, or rhonchi. No increased work of breathing. GASTROINTESTINAL: Abdomen soft, non-tender, nondistended with positive bowel sounds. No masses appreciated. MUSCULOSKELETAL: No cyanosis or edema. No calf tenderness reported. Left lower extremity in [place] wrap bandage with ice applied. Patient able to move all of his left foot digits with appropriate capillary refill. No erythema or edema appreciated above patient's bandage. Calves nontender to palpation bilaterally. NEURO/PSYCH: Afocal. Awake, alert, and oriented x3. Normal speech and judgement. <Bhavik Blanco H - 08/21/18 10:00> Assessment and Plan - Assessment (1) Fracture of ankle, left, closed Code(s): S82.892A - Other fracture of left lower leg, initial encounter for closed fracture Status: Acute (2) Diabetes Code(s): E11.9 - Type 2 diabetes mellitus without complications Status: Acute (3) WOOD (acute kidney injury) Code(s): N17.9 - Acute kidney failure, unspecified Status: Resolved (4) Hypertension Code(s): I10 - Essential (primary) hypertension Status: Acute (5) Depression Code(s): F32.9 - Major depressive disorder, single episode, unspecified Status : Acute (6) History of drug abuse Code(s): Z87.898 - Personal history of other specified conditions Status: Acute (7) Nutrition, metabolism, and development symptoms Code(s): R63.8 - Other symptoms and signs concerning food and fluid intake Status: Acute <Prevatte,Radu - 08/21/18 12:32> (1) Fracture of ankle, left, closed Code(s): S82.892A - Other fracture of left lower leg, initial encounter for closed fracture Status: Acute Plan: -Left ankle/foot x-ray: Fractured medial malleolus with 4 mm medial displacement as well as tiny avulsion type fracture fragments distally of the anterior talofibular ligament -CT of the ankle: Mildly displaced fracture the medial malleolus from the remainder of the distal tibial epiphysis. There is slight fragmentation at the tip of the fibula and adjacent to the lateral talus, these likely avulsion injuries. Similar small crescentic fragment along the anterolateral corner of the talus which is presumably avulsion injury Orthopedic surgery consulted, appreciate recommendations Orthopedic surgery recommends patient to be nonweightbearing Patient encouraged to elevate left lower extremity Medications: Lyman for pain control; outpatient prescription provided by orthopedic surgery and placed into chart Patient given prescription for daily aspirin Gabapentin to assist with polyneuropathy pain Shannen-Colace to assist with possible constipation; patient prescription given Patient received morphine, Dilaudid, and Demerol perioperatively (2) Diabetes Code(s): E11.9 - Type 2 diabetes mellitus without complications Status: Acute Plan: Patient with a known history of insulin-dependent type 1 diabetes. Patient typically takes Levemir 20 units twice daily and NovoLog 3 times daily based off preprandial blood sugars with medium sliding scale. Patient's blood glucose likely to be fluctuant over the next 24 hours due to being n.p.o. as well as missing his insulin due to being evaluated in the ED and during surgery. Continue to monitor blood sugar favoring hyperglycemia as patient states he does have a susceptibility to hypoglycemia. Blood glucose has ranged from 232-463 over the last 24 hours Medications: Levemir 10 units twice daily Medium sliding scale insulin per protocol Gabapentin to assist with neuropathy Patient to be discharged home on his current home regimen of Levemir 20 units twice daily and medium dose sliding scale; patient to follow-up with PCP for further management; patient counseled to avoid hypoglycemic episodes (3) WOOD (acute kidney injury) Code(s): N17.9 - Acute kidney failure, unspecified Status: Resolved Plan: Patient noted to have a creatinine of 1.40 with a BUN of 30 on admission. Most recent creatinine in January 2018 was 1.25. BMP: Creatinine 1.0 with BUN of 21, otherwise electrolytes within normal limits Medications: -Normal saline 125 mL/h overnight, discontinued on discharge (4) Hypertension Code(s): I10 - Essential (primary) hypertension Status: Acute Plan: Patient with a known history of hypertension Medications: Resume lisinopril 10 mg daily (5) Depression Code(s): F32.9 - Major depressive disorder, single episode, unspecified Status : Acute Plan: Patient with a known history of depression Medications: -Continue Prozac postoperatively (6) History of drug abuse Code(s): Z87.898 - Personal history of other specified conditions Status: Acute Plan: Patient in mother report patient has history of drug abuse and is currently in remission. Discussed with patient possible use of NSAID therapy to control pain , patient declines stating that his pain is too severe and requests hydrocodone at this time. Continue to monitor (7) Nutrition, metabolism, and development symptoms Code(s): R63.8 - Other symptoms and signs concerning food and fluid intake Status: Acute Plan: Diet: Diabetic diet as tolerated Fluids: Patient tolerating oral fluids, IV fluid per post surgical protocol DVT prophylaxis: Hold as patient is postop, SCDs in the unaffected leg Prophylaxis: Pain control as above, constipation protocol for constipation, Zofran as needed for nausea Physical therapy consulted Case management consulted <Bhavik Blanco H - 08/21/18 11:07> - Assessment and Plan 37-year-old male with a history of insulin-dependent type 1 diabetes, depression and hypertension admitted for left ankle fracture. Patient had uncomplicated left surgical fixation of his medial malleolar fracture on by Dr. Faye, orthopedic surgery. Patient did well postoperatively with physical therapy. Patient was cleared for discharge on 08/21/18 by orthopedic surgery with recommended 2-week follow-up. Patient was given prescription for Lyman for pain control, aspirin for anticoagulation, and Shannen-Colace for constipation. Otherwise all of his home medications were continued. Patient was recommended follow-up with his PCP, Dr. Zhang, within 1 week for reevaluation. <Bhavik Blanco - 08/21/18 10:00> - Attending Attestation Patient seen and examined. Discussed with Dr. Blanco. Agree with assessment and plan as documented. <Radu Sanchez - 08/21/18 12:32> <Bhavik Blanco - Last Filed: 08/21/18 11:07> (1) Fracture of ankle, left, closed Qualifiers: Encounter type: initial encounter Qualified Code(s): S82.892A - Other fracture of left lower leg, initial encounter for closed fracture (2) Diabetes Qualifiers: Diabetes mellitus type: type 1 <Radu Sanchez - Last Filed: 08/21/18 12:32> (1) Fracture of ankle, left, closed Qualifiers: Encounter type: initial encounter Qualified Code(s): S82.892A - Other fracture of left lower leg, initial encounter for closed fracture (2) Diabetes Qualifiers: Diabetes mellitus type: type 1 <Blanco,Bhavik H - Last Filed: 08/21/18 11:07> (1) Fracture of ankle, left, closed Qualifiers: Encounter type: initial encounter Qualified Code(s): S82.892A - Other fracture of left lower leg, initial encounter for closed fracture (2) Diabetes Qualifiers: Diabetes mellitus type: type 1 <Radu Sanchez - Last Filed: 08/21/18 12:32> (1) Fracture of ankle, left, closed Qualifiers: Encounter type: initial encounter Qualified Code(s): S82.892A - Other fracture of left lower leg, initial encounter for closed fracture (2) Diabetes Qualifiers: Diabetes mellitus type: type 1
[2018-08-21 10:16] VITALS: RESP 20
[2018-08-21] MEDS: Insulin NovoLOG Aspart Correctional Sugar Inj SQ SCH (10:18)
[2018-08-21] MEDS: Sodium Chloride 0.9% 2 ML Flush BID IV.FLUSH SCH (10:56)
--- NOTE | 2018-08-21 11:13 | P.DS ---
Date of admission: 08/19/18 22:32 Primary care physician: Chris Zhang MD Anticipated date of discharge: 08/21/18 Brief History from admission: 37-year-old male with past medical history of insulin-dependent type 1 diabetes , hypertension and depression presented to the emergency room with left foot/ ankle pain. Patient has been in his normal state of health until the day of admission when he states he had a hypoglycemic episode and fell. Patient states that he had been feeling well and is unsure of why he became hypoglycemic. He states that he did not lose consciousness and only injured his left ankle in the fall. Denied any head trauma, chest pain or shortness of breath, any other musculoskeletal injury/pain. Patient reported to the emergency room hours after the fall. He denies any numbness or tingling in the left foot or inability to move his toes. Patient's PCP is Dr. Zhang DS: Diagnosis - Discharge Diagnosis (1) Fracture of ankle, left, closed Status: Acute (2) Diabetes Status: Acute (3) WOOD (acute kidney injury) Status: Resolved (4) Hypertension Status: Acute (5) Depression Status: Acute (6) History of drug abuse Status: Acute (7) Nutrition, metabolism, and development symptoms Status: Acute DS: Medications - Discharge Medications Prescriptions: aspirin [Children's Aspirin] 81 mg PO BID #30 tab hydrocodone-acetaminophen [[place]] 1 tab PO Q4H #40 tab lisinopril 10 mg PO DAILY #30 tab sennosides-docusate sodium [Senna Plus] 1 tab PO BID #60 tab DS: Summary Hospital Course: 37-year-old male with a history of insulin-dependent type 1 diabetes, depression and hypertension admitted for left ankle fracture. Patient had uncomplicated left surgical fixation of his medial malleolar fracture on by Dr. Faye, orthopedic surgery. Patient did well postoperatively with physical therapy. Patient was cleared for discharge on 08/21/18 by orthopedic surgery with recommended 2-week follow-up. Patient was given prescription for [place] as needed for pain control, aspirin for anticoagulation, and Shannen-Colace as needed for constipation. Otherwise all of his home medications were continued. Patient was recommended follow-up with his PCP, Dr. Zhang, within 1 week for reevaluation. Patient had no complaints at the time of his discharge and all questions were answered. - Time Spent with Patient Total time spent providing and/or coordinating discharge services: Less than 30 minutes Exam Vital signs: Vital Signs 08/20/18 12:00 08/20/18 16:00 08/20/18 18:01 Temperature 97.7 F 98.3 F Pulse Rate 92 H 93 H Respiratory Rate 19 16 16 Blood Pressure 136/87 136/76 Pulse Oximetry 97 97 08/20/18 20:00 08/21/18 00:00 08/21/18 04:00 Temperature 97.3 F L 97.6 F 97.3 F L Pulse Rate 86 80 89 Respiratory Rate 17 20 16 Blood Pressure 122/73 119/71 128/89 Pulse Oximetry 94 L 96 93 L 08/21/18 08:00 Temperature 97.9 F Pulse Rate 91 H Respiratory Rate 20 Blood Pressure 141/89 H Pulse Oximetry 94 L Intake & Output 08/20/18 08/21/18 08/21/18 18:59 06:59 18:59 Intake Total 1100 / 1100 1000 / 1000 Output Total 1500 / 1500 Balance -400 / -400 1000 / 1000 Weight 103.5 kg Intake: IV 100 / 100 1000 / 1000 NS Inj 1,000 ML @ 125 mls/hr IV 1000 / 1000 .CONT .Q8H EMI Rx#:[id number] Ancef 2 GM Premix Inj 2 gm In 100 / 100 50 ml @ 100 mls/hr IV.SIG ONCE ONE Rx#:[id number] Anesthesia Amount 1000 / 1000 Output: Urine 1400 / 1400 Estimated Blood Loss 100 / 100 Other: # Voids 1 3 Results Procedures completed during hospitalization: Surgical repair of L medial malleolus fracture Labs on day of discharge: Labs from last 24 hours 08/21/18 08/21/18 08/21/18 07:30 07:30 07:29 WBC 7.5 RBC 4.56 Hgb 13.6 Hct 40.1 MCV 88.0 MCH 29.8 MCHC 33.9 RDW 12.6 Plt Count 204 MPV 8.6 Sodium 136 Potassium 4.3 Chloride 100 Carbon Dioxide 26.9 Anion Gap 9 BUN 21 H Creatinine 1.00 Estimated GFR 85 L POC Glucose 232 H Random Glucose 243 H Calcium 8.8 08/20/18 08/20/18 08/20/18 20:21 16:33 13:11 WBC RBC Hgb Hct MCV MCH MCHC RDW Plt Count MPV Sodium Potassium Chloride Carbon Dioxide Anion Gap BUN Creatinine Estimated GFR POC Glucose 349 H 310 H 280 H Random Glucose Calcium 08/20/18 11:27 WBC RBC Hgb Hct MCV MCH MCHC RDW Plt Count MPV Sodium Potassium Chloride Carbon Dioxide Anion Gap BUN Creatinine Estimated GFR POC Glucose 372 H Random Glucose Calcium - Impressions ITS Impressions Foot X-Ray 08/19/18 20:45 CONCLUSION: Medial malleolus fracture distal tibia. Ankle CT 08/19/18 21:46 CONCLUSION: Ankle fractures as above Chest X-Ray 08/19/18 21:54 CONCLUSION: No evidence of acute cardiopulmonary disease. Mild stable scarring of the left base. Ankle X-Ray 08/20/18 00:00 CONCLUSION: Status post ORIF of the left ankle Discharge Plan - Discharge Disposition Patient Disposition: 01 Discharge Home - Discharge Condition Condition: Good - Discharge Order Discharge Orders: Discharge Order (Routine); Ordered 08/21/18 Ordered By: Bhavik Blanco Orthopedic Clear for Discharge (Routine); Ordered 08/21/18 Ordered By: Kong Stern - Discharge Details Anticipated Discharge Date: 08/21/18 Discharge Comment: Patient to recieve crutches and be evaluated by Dr. Sanchez before discharge. - Physicians Team Primary Care Provider: Chris Zhang Attending Provider: Radu Sanchez Other Providers: Rogers Joy MD ; Nick Faye MD
[2018-08-21 12:44] VITALS: BP 138/89; PULSE 94; TEMP 98.4; O2SAT 97
--- NOTE | 2018-08-29 14:06 | P.OP ---
- Preoperative Diagnosis (1) Fracture of ankle, left, closed Date of procedure: 08/20/18 Procedure: open reduction internal fixation left ankle medial malleolus Surgeon: Nick Suarez MD Ed Physicians: CHASE Johnson PA-C The surgical procedure was assisted by my physician dermatology physician assistant. My P.A. presence was necessary throughout this case for the manipulation and positioning of the surgical extremity. My P.A. was assisting me throughout the duration of this procedure. The skill set of a physician dermatology physician assistant was medically necessary to complete this procedure. During the surgical case the manager surgical was working at the back table and the physician dermatology physician assistant was directly assisting me. Operation and Findings: Patient was seen and evaluated preoperatively and found to have a displaced left ankle medial malleolus fracture. Informed consent was obtained after a detailed discussion of risk and benefits of surgery. The operative site was marked. Patient was brought to the OR, placed on the OR table, and given IV sedation and general endotracheal anesthesia. IV antibiotics were given preoperatively. A timeout procedure was performed. The left leg was prepped with alcohol followed by Hibiclens and draped in the usual sterile fashion. Attention was turned towards the medial malleolus. The medial malleolus supposed through a 3 cm incision. Saphenous vein was retracted. Fracture was visualized. Fracture was cleaned with curettes. Fracture was now reduced and keyed into anatomic alignment. K wires were used to hold provisional fixation. 2 guidepins for the 4.0 cannulated screws were placed in a retrograde fashion across the fracture. Fluoroscopy was used to confirm guidepin placement. Cannulated drill was placed over the guidepin. 2 appropriate length screws were now placed. Good compression was applied. Fluoroscopy confirmed well aligned fracture with well-placed hardware. Next, attention was turned to the syndesmosis. The syndesmosis was stressed. There was no widening of the syndesmosis with external rotation of the ankle. Incisions were thoroughly irrigated. The subcutaneous tissue was closed with 3- 0 Vicryl and the skin was closed with 3-0 nylon. Sterile dressings were applied. A well molded well-padded splint was applied. The patient was transferred to Recovery in stable condition. Needle and sponge counts were correct.
== END 2018-08-21 12:53 | disposition home or self-care (01) ==
LOC: PHEFT 18:58 → PHEDA 22:32 → N05 08-20 01:56
PROVIDERS: ADMIT Family Medicine; ATTEND Family Medicine
PROC: ORIFANK (2018-08-20 08:44)